=== PATIENT | male | born 1940 | race Caucasian/White ===

== ENCOUNTER → 2024-09-13 | Outpatient (CLI) | payer MEDICARE, OTHER, SELFPAY ==
--- NOTE | 2024-09-13 12:23 | XR_ITS ---
Examination: PA lateral chest 2 views TECHNIQUE: Upright PA lateral chest 2 views Exam date and time: September 13, 2024 at 1308 hours Comparison April 06, 2016 INDICATIONS: Coughing shortness of breath beginning one month ago FINDINGS: Early pneumonia right base Mild heart failure with enlarged cardiac contour and prominent vascular congestion Severe osteopenia IMPRESSION: Right base pneumonia Mild heart failure
[2024-09-13 13:58] LABS: Basophils # (Auto) 0.1 Thou/mm3 (0.0-0.2); Basophils % (Auto) 1 % (0-2.5); Eosinophils # (Auto) 0.5 Thou/mm3 (0.0-0.5); Eosinophils % (Auto) 9 % (0-10); Hematocrit 43.2 % (41.0-53.0); Hemoglobin 14.1 g/dL (13.5-16.0); Immature Granulocytes % (Auto) 0 % (0-0); Immature Granulocytes Auto 0.02 Thou/mm3 (0.00-0.00); Lymphocytes # (Auto) 0.8 Thou/mm3 (1.0-4.8); Lymphocytes % (Auto) 13 % (10-50); Mean Corpuscular HGB Conc 32.6 g/dl (31.0-37.0); Mean Corpuscular Hemoglobin 31.9 pg (25.0-35.0); Mean Corpuscular Volume 98 fL (80-100); Monocytes # (Auto) 0.6 Thou/mm3 (0.0-0.8); Monocytes % (Auto) 10 % (0-12); Neutrophils # (Auto) 4.1 Thou/mm3 (1.8-7.7); Neutrophils % (Auto) 67 % (37-80); Nucleated Red Blood Cell % 0 /100 WBC (0); Platelet Count 161 Thou/mm3 (140-440); RDW Standard Deviation 49.4 fL (35.1-43.9); Red Blood Count 4.42 Miln/mm3 (4.50-5.90); White Blood Count 6.1 Thou/mm3 (3.8-10.6)
[2024-09-13 14:10] LABS: Glucose Estimated Average 117 mg/dL (80-131); Hemoglobin A1C 5.7 % Hgb (4.8-6.0)
[2024-09-13 14:23] LABS: Alanine Aminotransferase 14 U/L (10-49); Albumin, Serum 4.3 gm/dL (3.4-4.8); Albumin/Globulin Ratio 1.7 (1.2-2.2); Alkaline Phosphatase 294 U/L (46-116); Anion Gap 6 (7-16); Aspartate Amino Transferase 10 U/L (0-34); B-Type Natriuretic Peptide 307 pg/mL (0-100); BUN/Creatinine Ratio 19 Ratio (12-20); Blood Urea Nitrogen 21 mg/dL (9-23); Calcium 9.9 mg/dL (8.3-10.6); Calcium (Corrected) 9.9 mg/dL (8.5-10.1); Cardiac Risk Estimate 2.9 RATIO (4.0-6.7); Chloride 107 mMol/L (98-107); Cholesterol 127 mg/dL (132-200); Creatinine (Component) 1.1 mg/dL (0.6-1.3); Free T4 (Free Thyroxine) 1.18 ng/dL (0.89-1.76); Globulin 2.5 gm/dL (2.3-3.5); Glucose 126 mg/dL (74-106); HDL Cholesterol 44 mg/dL (40-60); LDL Cholesterol,Calculated 67 mg/dL (0-130); Osmolality,Calculated 282 (275-295); Potassium 4.4 mMol/L (3.4-5.1); Sodium 139 mMol/L (136-145); Thyroid Stimulating Hormone 0.75 uIU/mL (0.55-4.78); Total Protein 6.8 gm/dL (5.7-8.2); Triglycerides 79 mg/dL (30-150); eGFR > 60 See Note
== END | disposition home or self-care (01) ==
LOC: CDIM 12:13 → COPL 13:16
PROVIDERS: PCP Internal Medicine; Referring Provider Internal Medicine; Visit Provider Radiology Diagnostic Radiology
DX: J18.9 Pneumonia, unspecified organism (principal); I11.0 Hypertensive heart disease with heart failure; I50.9 Heart failure, unspecified; E11.9 Type 2 diabetes mellitus without complications; E55.9 Vitamin D deficiency, unspecified; E78.2 Mixed hyperlipidemia; E03.9 Hypothyroidism, unspecified
CPT/HCPCS: 36415; 71046; 80053; 80061; 82306; 83036; 83880; 84439; 84443; 85025

== ENCOUNTER → 2024-10-09 | Outpatient (CLI) | payer MEDICARE, OTHER, SELFPAY ==
[2024-10-09 13:03] LABS: Basophils % (Auto) 0 % (0-2.5); Eosinophils # (Auto) 0.6 Thou/mm3 (0.0-0.5); Eosinophils % (Auto) 5 % (0-10); Hematocrit 43.2 % (41.0-53.0); Hemoglobin 14.6 g/dL (13.5-16.0); Immature Granulocytes % (Auto) 1 % (0-0); Immature Granulocytes Auto 0.06 Thou/mm3 (0.00-0.00); Lymphocytes % (Auto) 10 % (10-50); Mean Corpuscular HGB Conc 33.8 g/dl (31.0-37.0); Mean Corpuscular Hemoglobin 31.7 pg (25.0-35.0); Mean Corpuscular Volume 94 fL (80-100); Monocytes % (Auto) 9 % (0-12); Neutrophils # (Auto) 7.7 Thou/mm3 (1.8-7.7); Neutrophils % (Auto) 74 % (37-80); Nucleated Red Blood Cell % 0 /100 WBC (0); Platelet Count 171 Thou/mm3 (140-440); RDW Standard Deviation 48.1 fL (35.1-43.9); White Blood Count 10.4 Thou/mm3 (3.8-10.6)
[2024-10-09 13:10] LABS: B-Type Natriuretic Peptide 261 pg/mL (0-100)
[2024-10-09 13:12] LABS: Anion Gap 6 (7-16); BUN/Creatinine Ratio 30 Ratio (12-20); Blood Urea Nitrogen 42 mg/dL (9-23); Calcium 11.8 mg/dL (8.3-10.6); Carbon Dioxide 32.9 mMol/L (20.0-31.0); Chloride 101 mMol/L (98-107); Creatinine (Component) 1.4 mg/dL (0.6-1.3); Glucose 115 mg/dL (74-106); Osmolality,Calculated 290 (275-295); Potassium 4.9 mMol/L (3.4-5.1); Sodium 140 mMol/L (136-145); eGFR 49 See Note
[2024-10-09 14:15] LABS: Glucose Estimated Average 126 mg/dL (80-131)
== END | disposition home or self-care (01) ==
LOC: COPL 11:54
PROVIDERS: PCP Internal Medicine; Referring Provider Internal Medicine Cardiovascular Disease; Visit Provider Internal Medicine Cardiovascular Disease
DX: I11.0 Hypertensive heart disease with heart failure (principal); I50.9 Heart failure, unspecified; E11.65 Type 2 diabetes mellitus with hyperglycemia; E78.5 Hyperlipidemia, unspecified
CPT/HCPCS: 36415; 80048; 83036; 83880; 85025

== ENCOUNTER 2024-10-13 15:26 | Inpatient (IN) | payer MEDICARE, OTHER, SELFPAY ==
[2024-10-13 15:27] VITALS: BMI 33.0
[2024-10-13 15:42] VITALS: BP 100/61; PULSE 62; RESP 18; TEMP 36.4; O2SAT 95
--- NOTE | 2024-10-13 15:50 | EKG_ITS ---
[facility] Test Date: 2024-10-13 Pat Name: ANGELICA SEVILLA Department: Room: - Gender: Male Sales Department Manager: : 1940 Requested By: Palak Morales Order Number: [id number] Reading MD: Palak Morales Measurements Intervals [place] Rate: 57 P: SD: QRS: -48 QRSD: 140 T: 14 QT: 384 QTc: 374 Interpretive Statements ATRIAL FIBRILLATION WITH SLOW VENTRICULAR RESPONSE MARKED LEFT AXIS DEVIATION [QRS AXIS < -30] RIGHT BUNDLE BRANCH BLOCK [120+ ms QRS DURATION, UPRIGHT V1, 40+ ms S IN I/aVL/V4/V5/V6] No previous ECG available for comparison /store/S0/[id number]/[id number].pdf
--- NOTE | 2024-10-13 15:50 | XR_ITS ---
Examination: Venous duplex lower extremity sonogram, bilateral. Date and time of exam: October 13, 2024 7055 hours Indications: Bilateral leg swelling and pain beginning several months ago Technique: Multiple sonographic images of the deep venous system have been obtained. B-mode/2-D grayscale imaging of vascular structures and Doppler spectral analysis (waveforms) and color performed Both legs are examined. Findings: Deep venous systems do not demonstrate abnormal echogenicity. All visualized deep veins exhibit compressibility. All visualized deep veins exhibit augmentation. Impression: Negative for deep vein thrombosis
--- NOTE | 2024-10-13 15:50 | XR_ITS ---
Examination: AP chest single view Technique: Portable AP sitting chest single view Findings: October 13, 2024 1558 hrs. Comparison September 13, 2024 Indications: Shortness of breath coughing fever beginning 2 days ago. Findings: Diffuse significant bilateral pneumonia Mild enlargement cardiac contour with significant vascular congestion and central vascular engorgement Significant osteopenia Impression: Diffuse significant bilateral pneumonia Mild associated heart failure
--- NOTE | 2024-10-13 15:52 | EDNOTE_ITS ---
<Statement entered by Denisha Yan MD - 10/14/24 18:03> As co-signing physician, I was present and available for consult prn. I concur with the plan and care as documented by the midlevel provider. ED General RME/HPI General Chief complaint: Shortness of Breath/Dyspnea Stated complaint: SOB, UNABLE TO BEAR WT, SINCE YESTERDAY Time Seen by Provider: 10/13/24 15:44 Arrival date/time: 10/13/24 15:26 RME / HPI RME / HPI narrative: 84-year-old male patient with significant history of prostate problem, hypertension, diabetes mellitus, came in for evaluation regarding generalized body weakness. Patient's been sick with cough, going on for the last 3 weeks, getting worse, was already seen by PCP, and was already given antibiotic completed antibiotic already, associated with worsening generalized body weakness, difficulty ambulating for the last 3 days. Patient denies any fever. Denies any headache. Denies any upper extremity weakness. Denies any other other complaints. No medication was taken prior to arrival. Related Data Home Medications ?Medication ?Instructions ?Recorded ?Confirmed Aspirin Ec * (ECOTRIN *) 81 mg PO QDAY ##0 04/06/16 Losartan Potassium * (COZAAR *) 100 mg PO QAM #0 tabs 04/06/16 atenolol 100 mg tablet (Tenormin) 100 mg PO QAM #0 tabs 04/06/16 finasteride 5 mg tablet (Proscar) 5 mg PO QDAY #0 tabs 04/06/16 meloxicam 15 mg tablet (Mobic) 15 mg PO HS #0 tabs 04/06/16 metformin 750 mg tablet,extended 750 mg PO QAM ##0 04/06/16 release 24 hr (Glucophage XR) spironolactone 25 mg tablet 25 mg PO QDAY #0 tabs 04/06/16 (Aldactone) tamsulosin 0.4 mg capsule (Flomax) 0.4 mg PO QDAY ##0 04/06/16 Allergies Allergy/AdvReac Type Severity Reaction Status Date / Time NKA* Allergy Uncoded 10/13/24 15:29 Review of Systems Review of Systems Narrative Review of Systems: Review of system reviewed and within normal limits except mentioned in HPI ED Exam Narrative Physical exam: VITAL SIGNS: Reviewed. GENERAL APPEARANCE: Alert and interactive, follows commands, no acute distress, HEAD AND FACE: Non-traumatic. ENT: PERRL, pale conjunctiva, eyelid no trauma, Mucous membrane moist. NECK: Supple, nontender, no nuchal rigidity. CHEST: No tenderness, no crepitus, no paradoxical movement, no retractions. LUNGS: Clear, well ventilated, symmetric, no rales, no wheezing, no ronchi, no stridor, good breath sounds bilaterally. HEART: Regular rate, regular rhythm, no murmur, no gallops. ABDOMEN: Soft, positive bowel sounds, nondistended, no guarding, nontender, no rebound, no masses, RECTAL: Deferred. GENITAL: Deferred. NEUROLOGICAL: Gross motor function intact sensory function intact, Appropriate for age. MUSCULOSKELETAL: low back nontender, full range of motion. EXTREMITIES: Nontender, full range of motion. SKIN: Color pale, dry, no rash, no lacerations, no abrasions, no contusions. LYMPHATICS: Deferred. Course Quality Measures none Orders Category Date Time Status Bedside COVID-19 Antigen Test NOW Care 10/13/24 15:51 Active Bedside COVID-19 Antigen Test NOW Care 10/13/24 20:49 Active Bedside Influenza A&B Antigen Test NOW Care 10/13/24 15:51 Completed COVID-19 Screening Questionnaire NOW Care 10/13/24 20:41 Active Decision to Admit X1 Care 10/13/24 20:41 Completed EKG (ED ONLY) *Do not use* NOW Care 10/13/24 15:50 Completed EKG (ED Only) Stat Exams 10/13/24 15:50 Draft US venous doppler LE BI Stat Exams 10/13/24 15:50 Completed XR chest 1V Stat Exams 10/13/24 15:50 Completed B-Type Natriuretic Peptide Stat Lab 10/13/24 16:20 Completed Blood Culture (Lab) Stat Lab 10/13/24 16:20 Received C-Reactive Protein Stat Lab 10/13/24 16:20 Completed CBC Stat Lab 10/13/24 16:20 Completed Comprehensive Metabolic Panel Stat Lab 10/13/24 16:20 Completed Lactate (Lactic Acid) Stat Lab 10/13/24 16:20 Completed Lactic Acid, 3 HR Stat Lab 10/13/24 19:48 Completed Partial Thromboplastin Time Stat Lab 10/13/24 16:20 Completed Procalcitonin Stat Lab 10/13/24 16:20 Completed Prothrombin Time with INR Stat Lab 10/13/24 16:20 Completed RSV [Respiratory Syncytial Virus Ag] Stat Lab 10/13/24 16:16 Completed Troponin I Stat Lab 10/13/24 16:20 Completed Troponin I Stat Lab 10/13/24 18:23 Completed UA, C/S IF [Urinalysis, C/S if Indicated] Stat Lab 10/13/24 16:54 Completed Azithromycin Inj [Zithromax Inj] 500 mg Med 10/13/24 20:08 Discontinued Sodium Chloride 0.9% 250 ml [Ns] 250 ml IV X1 Sodium Chloride 0.9% 1000 ml [Ns] 1,000 ml Med 10/13/24 17:14 Discontinued IV 999 mls/hr cefTRIAXone/D5w 1gm IV premix [Rocephin/D5w 1gm IV Med 10/13/24 20:07 Discontinued premix] 50 ml IV X1 Vital Signs Vital signs: Vital Signs Temperature 97.6 F 10/13/24 15:42 Pulse Rate 62 10/13/24 15:42 Respiratory Rate 18 10/13/24 15:42 Blood Pressure 100/61 10/13/24 15:42 Pulse Oximetry (%) 95 10/13/24 15:42 Oxygen Delivery Method Room Air 10/13/24 15:42 [facility] Patient data External records reviewed:: None Clinical information provided by:: patient Social determinants that could affect healthcare access:: none Patient has the following chronic illnesses:: Hypertension, prostate problem diabetes mellitus How is presenting disease/condition affected by chronic disease/condition?: e xacerbated by Evaluation data The following diagnostics were reviewed and interpreted by me:: lab results, radiology exam(s) and EKG tracing(s) Lab and/or radiology exams considered but not ordered:: None Interpretation Summary: Chest x-ray showed diffuse pneumonia, bilateral. The rest of the labs see results in [facility] Medications Medications considered but not ordered:: None Medication administrations:: Medication Administration History Acetaminophen (Acetaminophen 325 Mg Tablet) 650 mg PO Q6H PRN PRN Reason: Fever >100.4 or Pain 1-10 Stop: 11/12/24 21:43 Albuterol/Ipratropium (Albuterol/Ipratropium (Duoneb) Rt Diana 3 Ml Nebu) 3 ml INH Q6HRRT PRN PRN Reason: Shortness of breath or wheezing Stop: 11/13/24 00:59 Bisacodyl (Bisacodyl 5 Mg Tabec) 10 mg PO QDAY PRN; Protocol PRN Reason: CONSTIPATION Stop: 11/12/24 21:43 Ondansetron HCl (Ondansetron Inj 2 Mg/Ml Inj 2 Ml) 4 mg IV Q6H PRN; Protocol PRN Reason: NAUSEA OR VOMITING Stop: 11/12/24 21:43 Discontinued Medications Sodium Chloride (Ns) 1,000 mls @ 999 mls/hr IV .Q1H1M ONE Stop: 10/13/24 18:14 Last Infusion: 10/13/24 22:12 Dose: Infused Documented By: Admin: 10/13/24 20:50 Dose: 999 mls/hr Documented By: CHRIS Ceftriaxone Sodium/Dextrose (Rocephin/D5w 1gm Iv Premix) 50 mls @ 100 mls/hr IV X1 ONE Stop: 10/13/24 20:36 Last Infusion: 10/13/24 21:27 Dose: Infused Documented By: Admin: 10/13/24 20:50 Dose: 100 mls/hr Documented By: CHRIS Azithromycin 500 mg/ Sodium (Chloride) 250 mls @ 250 mls/hr IV X1 ONE Stop: 10/13/24 21:07 Last Infusion: 10/13/24 22:12 Dose: Infused Documented By: Admin: 10/13/24 20:50 Dose: 250 mls/hr Documented By: CHRIS Sodium Chloride (Sodium Chloride Rt 10% 15 Ml Nebu) 5 ml INH X1 ONE Stop: 10/13/24 21:50 IV fluids for addition Zithromax IV inspection IV Consultations Consultation(s) initiated? (list below): No Diagnosis Differential Diagnosis ED Complaint MDM: Pneumonia, generalized body weakness, dehydration Most likely diagnosis given after review of the tests above:: Generalized body weakness, pneumonia, dehydration Admission Indicated Admission indicated?: indicated Explain why admission is indicated or not indicated:: Patient is to be admitted for further management.. Admission Request Was there a request for admission?: Yes Admission Attestation Admission request attestation: Discussed case with [Dr Eldridge] from Hospitalist service regarding admission. Discussed patients ED course, exam findings, labs, and radiology results. The Hospitalist [agrees] to accept the patient for admission. Disposition Plan Disposition Plan: Admit Medical Decision Making MDM Narrative MDM Narrative: 84-year-old male patient with significant history of prostate problem, hypertension, diabetes mellitus, came in for evaluation regarding generalized body weakness. Patient's been sick with cough, going on for the last 3 weeks, getting worse, was already seen by PCP, and was already given antibiotic completed antibiotic already, associated with worsening generalized body weakness, difficulty ambulating for the last 3 days. Patient denies any fever. Denies any headache. Denies any upper extremity weakness. Denies any other other complaints. No medication was taken prior to arrival. Chest x-ray showed worsening bilateral diffuse pneumonia. Patient's laboratory workup CBC no leukocytosis noted, initial lactic acid was noted to be elevated, creatinine was also noted to be 1.4 BUN of 35. Troponin was noted to be 0.095. C-reactive protein 2.7. BNP of 274. Doppler ultrasound bilateral lower extremity negative for DVT. Plan of care discussed with the family and agrees to be admitted for further management. Discussed with hospitalist who admitted the patient Differential Diagnosis Differential Diagnosis: Pneumonia, generalized body weakness, dehydration Lab Data 10/13/24 16:20 10/13/24 16:20 Labs: Lab Results 10/13/24 10/13/24 10/13/24 Range/Units 16:16 16:20 16:54 WBC 9.3 (3.8-10.6) Thou/mm3 RBC 4.56 (4.50-5.90) Miln/mm3 Hgb 14.3 (13.5-16.0) g/dL Hct 43.9 (41.0-53.0) % MCV 96 (80-100) fL MCH 31.4 (25.0-35.0) pg MCHC 32.6 (31.0-37.0) g/dl RDW Std Deviation 49.5 H (35.1-43.9) fL Plt Count 174 (140-440) Thou/mm3 Neut % (Auto) 73 (37-80) % Lymph % (Auto) 10 (10-50) % [place] % (Auto) 10 (0-12) % Eos % (Auto) 6 (0-10) % Baso % (Auto) 1 (0-2.5) % Neut # (Auto) 6.8 (1.8-7.7) Thou/mm3 Lymph # (Auto) 1.0 (1.0-4.8) Thou/mm3 [place] # (Auto) 0.9 H (0.0-0.8) Thou/mm3 Eos # (Auto) 0.6 H (0.0-0.5) Thou/mm3 Baso # (Auto) 0.1 (0.0-0.2) Thou/mm3 Immature Gran # (Auto) 0.05 H (0.00-0.00) Thou/mm3 Absolute Nucleated RBC 0.00 (0.00-0.00) Thou/mm3 Immature Gran % 1 H (0-0) % Nucleated RBC % 0 (0) /100 WBC PT 12.2 (9.0-12.2) Seconds INR 1.1 (0.9-1.3) APTT 26.3 (22.0-36.0) Seconds Sodium 139 (136-145) mMol/L Potassium 5.2 H (3.4-5.1) mMol/L Chloride 103 (98-107) mMol/L Carbon Dioxide 28.7 (20.0-31.0) mMol/L Anion Gap 7 (7-16) BUN 35 H (9-23) mg/dL Creatinine 1.4 H (0.6-1.3) mg/dL Estim Creat Clear Calc 46.7 L (>60) mL/min eGFR 49 L (60 - ) See Note BUN/Creatinine Ratio 25 H (12-20) Ratio Glucose 117 H (74-106) mg/dL Calculated Osmolality 286 (275-295) Lactic Acid 2.2 H (0.4-2.0) mMol/L Calcium 12.5 H (8.3-10.6) mg/dL Corrected Calcium 12.7 H (8.5-10.1) mg/dL Total Bilirubin 0.7 (0.3-1.2) mg/dL AST 19 (0-34) U/L ALT 18 (10-49) U/L Alkaline Phosphatase 283 H (46-116) U/L Troponin I 0.095 H* (0.0-0.045) ng/mL C-Reactive Prot, Quant 2.7 H (0.0-0.9) mg/dL B-Natriuretic Peptide 274 H (0-100) pg/mL Total Protein 6.3 (5.7-8.2) gm/dL Albumin 3.7 (3.4-4.8) gm/dL Globulin 2.6 (2.3-3.5) gm/dL Albumin/Globulin Ratio 1.4 (1.2-2.2) Procalcitonin 0.35 (0.0-0.49) ng/ml Ur Collection Type Clean Catch Urine Color Lt-Yellow (Lt Yel-Yel) Urine Clarity Clear (Clear/Hazy) Urine pH 6.0 (5.0-7.0) Ur Specific [place] 1.016 (1.001-1.035) Urine Protein Negative (Neg - Trace) Urine Glucose (UA) Negative (Negative) Urine Ketones Negative (Negative) Urine Blood Negative (Negative) Urine Nitrite Negative (Negative) Urine Bilirubin Negative (Negative) Urine Urobilinogen (Auto) Negative (0.0-1.0) mg/dL Ur Leukocyte Esterase Negative (Negative) Urine RBC 2 (0-3) /hpf Urine WBC 1 (0-5) /hpf Ur Squamous Epith Cells < 1 (0-5) /hpf Urine Bacteria None (None) Hyaline Casts < 1 (0-1) /hpf Ur Culture Indicated? Not Indicated RSV Rapid Negative (Negative) 10/13/24 10/13/24 Range/Units 18:23 19:48 WBC (3.8-10.6) Thou/mm3 RBC (4.50-5.90) Miln/mm3 Hgb (13.5-16.0) g/dL Hct (41.0-53.0) % MCV (80-100) fL MCH (25.0-35.0) pg MCHC (31.0-37.0) g/dl RDW Std Deviation (35.1-43.9) fL Plt Count (140-440) Thou/mm3 Neut % (Auto) (37-80) % Lymph % (Auto) (10-50) % [place] % (Auto) (0-12) % Eos % (Auto) (0-10) % Baso % (Auto) (0-2.5) % Neut # (Auto) (1.8-7.7) Thou/mm3 Lymph # (Auto) (1.0-4.8) Thou/mm3 [place] # (Auto) (0.0-0.8) Thou/mm3 Eos # (Auto) (0.0-0.5) Thou/mm3 Baso # (Auto) (0.0-0.2) Thou/mm3 Immature Gran # (Auto) (0.00-0.00) Thou/mm3 Absolute Nucleated RBC (0.00-0.00) Thou/mm3 Immature Gran % (0-0) % Nucleated RBC % (0) /100 WBC PT (9.0-12.2) Seconds INR (0.9-1.3) APTT (22.0-36.0) Seconds Sodium (136-145) mMol/L Potassium (3.4-5.1) mMol/L Chloride (98-107) mMol/L Carbon Dioxide (20.0-31.0) mMol/L Anion Gap (7-16) BUN (9-23) mg/dL Creatinine (0.6-1.3) mg/dL Estim Creat Clear Calc (>60) mL/min eGFR (60 - ) See Note BUN/Creatinine Ratio (12-20) Ratio Glucose (74-106) mg/dL Calculated Osmolality (275-295) Lactic Acid 1.7 (0.4-2.0) mMol/L Calcium (8.3-10.6) mg/dL Corrected Calcium (8.5-10.1) mg/dL Total Bilirubin (0.3-1.2) mg/dL AST (0-34) U/L ALT (10-49) U/L Alkaline Phosphatase (46-116) U/L Troponin I 0.095 H* (0.0-0.045) ng/mL C-Reactive Prot, Quant (0.0-0.9) mg/dL B-Natriuretic Peptide (0-100) pg/mL Total Protein (5.7-8.2) gm/dL Albumin (3.4-4.8) gm/dL Globulin (2.3-3.5) gm/dL Albumin/Globulin Ratio (1.2-2.2) Procalcitonin (0.0-0.49) ng/ml Ur Collection Type Urine Color (Lt Yel-Yel) Urine Clarity (Clear/Hazy) Urine pH (5.0-7.0) Ur Specific [place] (1.001-1.035) Urine Protein (Neg - Trace) Urine Glucose (UA) (Negative) Urine Ketones (Negative) Urine Blood (Negative) Urine Nitrite (Negative) Urine Bilirubin (Negative) Urine Urobilinogen (Auto) (0.0-1.0) mg/dL Ur Leukocyte Esterase (Negative) Urine RBC (0-3) /hpf Urine WBC (0-5) /hpf Ur Squamous Epith Cells (0-5) /hpf Urine Bacteria (None) Hyaline Casts (0-1) /hpf Ur Culture Indicated? RSV Rapid (Negative) Discharge Plan Problem List Clinical Impression: Community acquired pneumonia
[2024-10-13 16:31] LABS: Lactate (Lactic Acid) 2.2 mMol/L (0.4-2.0)
[2024-10-13 16:36] LABS: Basophils # (Auto) 0.1 Thou/mm3 (0.0-0.2); Basophils % (Auto) 1 % (0-2.5); Eosinophils # (Auto) 0.6 Thou/mm3 (0.0-0.5); Eosinophils % (Auto) 6 % (0-10); Hematocrit 43.9 % (41.0-53.0); Hemoglobin 14.3 g/dL (13.5-16.0); Immature Granulocytes % (Auto) 1 % (0-0); Immature Granulocytes Auto 0.05 Thou/mm3 (0.00-0.00); Lymphocytes % (Auto) 10 % (10-50); Mean Corpuscular HGB Conc 32.6 g/dl (31.0-37.0); Mean Corpuscular Hemoglobin 31.4 pg (25.0-35.0); Mean Corpuscular Volume 96 fL (80-100); Monocytes # (Auto) 0.9 Thou/mm3 (0.0-0.8); Monocytes % (Auto) 10 % (0-12); Neutrophils # (Auto) 6.8 Thou/mm3 (1.8-7.7); Neutrophils % (Auto) 73 % (37-80); Nucleated Red Blood Cell % 0 /100 WBC (0); Platelet Count 174 Thou/mm3 (140-440); RDW Standard Deviation 49.5 fL (35.1-43.9); Red Blood Count 4.56 Miln/mm3 (4.50-5.90); White Blood Count 9.3 Thou/mm3 (3.8-10.6)
[2024-10-13 16:48] LABS: INR 1.1 (0.9-1.3); Partial Thromboplastin Time 26.3 Seconds (22.0-36.0); Prothrombin Time 12.2 Seconds (9.0-12.2)
[2024-10-13 16:51] LABS: B-Type Natriuretic Peptide 274 pg/mL (0-100)
[2024-10-13 16:58] LABS: Respiratory Syncytial Virus Ag Negative (Negative)
[2024-10-13 17:01] LABS: Alanine Aminotransferase 18 U/L (10-49); Albumin, Serum 3.7 gm/dL (3.4-4.8); Albumin/Globulin Ratio 1.4 (1.2-2.2); Alkaline Phosphatase 283 U/L (46-116); Anion Gap 7 (7-16); Aspartate Amino Transferase 19 U/L (0-34); BUN/Creatinine Ratio 25 Ratio (12-20); Bilirubin,Total 0.7 mg/dL (0.3-1.2); Blood Urea Nitrogen 35 mg/dL (9-23); C-Reactive Protein 2.7 mg/dL (0.0-0.9); Calcium 12.5 mg/dL (8.3-10.6); Calcium (Corrected) 12.7 mg/dL (8.5-10.1); Carbon Dioxide 28.7 mMol/L (20.0-31.0); Chloride 103 mMol/L (98-107); Creatinine (Component) 1.4 mg/dL (0.6-1.3); Estimated Creatinine Clearance 46.7 mL/min (>60); Globulin 2.6 gm/dL (2.3-3.5); Glucose 117 mg/dL (74-106); Osmolality,Calculated 286 (275-295); Potassium 5.2 mMol/L (3.4-5.1); Procalcitonin 0.35 ng/ml (0.0-0.49); Sodium 139 mMol/L (136-145); Total Protein 6.3 gm/dL (5.7-8.2); eGFR 49 See Note
[2024-10-13 17:02] LABS: Troponin I 0.095 ng/mL (0.0-0.045)
[2024-10-13 17:37] LABS: Collection Type, Urine Clean Catch
[2024-10-13 17:47] LABS: Bilirubin,Urine Negative (Negative); Blood,Urine Negative (Negative); Clarity,Urine Clear (Clear/Hazy); Color,Urine Lt-Yellow (Lt Yel-Yel); Culture Indicated,Urine Not Indicated; Glucose, Urine Negative (Negative); Hyaline Casts,Urine < 1 /hpf (0-1); Ketones,Urine Negative (Negative); Leukocyte Esterase,Urine Negative (Negative); Nitrite,Urine Negative (Negative); Protein,Urine Negative (Neg - Trace); RBC,Urine 2 /hpf (0-3); Specific Gravity,Urine 1.016 (1.001-1.035); Squamous Epithelial Cell,Urine < 1 /hpf (0-5); Urobilinogen,Urine Negative mg/dL (0.0-1.0); WBC,Urine 1 /hpf (0-5)
[2024-10-13 19:20] LABS: Troponin I 0.095 ng/mL (0.0-0.045)
[2024-10-13 19:27] LABS: Reflex Lactate? Y
[2024-10-13 20:03] LABS: Lactic Acid, 3 HR 1.7 mMol/L (0.4-2.0)
[2024-10-13] MEDS: cefTRIAXone/D5w 1gm IV premix 50 ML IV (20:50)
[2024-10-13] MEDS: AZITHROMYCIN INJ 500 MG in SODIUM CHLORIDE 0.9% 250 ML 250 ML 250 MG IV (20:50)
[2024-10-13] MEDS: SODIUM CHLORIDE 0.9% 1000 ML 1,000 ML 999 ML IV (20:50)
--- NOTE | 2024-10-13 21:28 | PD.RESHP ---
Documentation for date of: 10/13/24 [facility] History of Present Illness History of present illness: Patient is a 84-year-old male with past medical history of afib on Eliquis, hypertension, prediabetes, and BPH who presented to the ED on 10/13/2024 with 6 weeks of cough and worsening generalized body weakness and bilateral leg swelling for the last 3 days. Daughters present with patient. States cough started around July, patient has meanwhile seen PCP and completed courses of azithromycin and doxycycline without improvement. Also has had about a 30-lb unintentional weight loss in the last 2 months. He reports loss of appetite due to burning sensation with eating. He was prescribed pantoprazole 40 mg daily which helped some but did not resolve the issue. Patient takes Lasix 40 mg BID and follows with Dr. Grider, Cardiology who recently saw him before the sudden increase in bilateral leg swelling. States no medication adjustments have recently been made other than decreasing amlodipine from twice to once daily. Patient notes that he is ambulatory at baseline and independent with all ADLs lives alone but has family frequently visit and they are currently worried for his recent declining health. Over last few days he has grown very weak such that he is unable to ambulate. Patient reports chills today. Denies fevers, chest pain, nausea, vomiting, abdominal pain, diarrhea. Denies bloody sputum. ED Course: -Initial vitals were hemodynamically stable. -Labs significant for mild hyperkalemia 5.2, creatinine 1.4 (baseline 1.1), lactic acid 2.2->1.7, elevated corrected calcium 12.7, alk phos 283, troponin 0.95, CRP 2.7, BNP 274, procalcitonin 0.35 negative -EKG showed atrial fibrillation with rate 57 -CXR showed diffuse significant bilateral pneumonia, mild associated heart failure -Venous duplex bilateral lower extremities were negative for DVT -In the ED, patient was given 1L NS IV bolus x1, ceftriaxone 1 g IV x1, azithromycin 500 mg IV x1 -Patient was admitted for community acquired pneumonia Review of Systems Review of systems otherwise negative except what is mentioned above. Past Medical History Past Medical History Comments PMH COMMENT: Past Medical History: Afib on Eliquis, hypertension, prediabetes, and BPH. Denies past history of hospitalizations other than for surgery. Family History: Positive for diabetes and heart disease in family Surgical History: Lumbar spine surgery Social History: Denies history of smoking, denies current alcohol use, denies recreational drug use Current Medications: Eliquis 2.5 mg BID, furosemide 40 mg BID, metoprolol succinate 100 mg qday, amlodipine 5 mg qday, losartan 100 mg qday, metformin 500 mg qday, tamsulosin 0.4 mg qday, finasteride 5 mg qday, potassium chloride 20 mEq BID (Source: [employer]) Allergies: No known drug allergies Exam Vital Signs Temp Pulse Resp BP Pulse Ox O2 Del Method 97.6 F 62 18 100/61 95 Room Air 10/13/24 15:42 10/13/24 15:42 10/13/24 15:42 10/13/24 15:42 10/13/24 15:42 10/13/24 15:42 Narrative Exam Physical Exam General: Elderly male, awake and in no acute distress. Conversational, frail appearing. HEENT: Normocephalic, atraumatic, mucous membranes moist. Heart: Regular rate and rhythm, no murmurs. Lungs: Bilateral mild crackles. Abdomen: Soft, nondistended, nontender, positive bowel sounds. ?No guarding or rebound tenderness. Neurologic: Alert and oriented x3, no gross neurological deficit, and patient able to move all 4 extremities. Extremities: Significant bilateral lower extremity 3+ pitting edema. Skin: No rash or ecchymoses. Results: Labs 10/22/24 04:40 10/22/24 04:40 Labs: Short CBC 10/13/24 Range/Units 16:20 WBC 9.3 (3.8-10.6) Thou/mm3 Hgb 14.3 (13.5-16.0) g/dL Hct 43.9 (41.0-53.0) % Plt Count 174 (140-440) Thou/mm3 BMP 10/13/24 16:20 Sodium 139 Potassium 5.2 H Chloride 103 Carbon Dioxide 28.7 BUN 35 H Creatinine 1.4 H Glucose 117 H Calcium 12.5 H Cardiac Enzymes 10/13/24 10/13/24 Range/Units 16:20 18:23 Troponin I 0.095 H* 0.095 H* (0.0-0.045) ng/mL Liver Function 10/13/24 Range/Units 16:20 Total Bilirubin 0.7 (0.3-1.2) mg/dL AST 19 (0-34) U/L ALT 18 (10-49) U/L Alkaline Phosphatase 283 H (46-116) U/L Albumin 3.7 (3.4-4.8) gm/dL Urine 10/13/24 Range/Units 16:54 Urine Color Lt-Yellow (Lt Yel-Yel) Urine Clarity Clear (Clear/Hazy) Urine pH 6.0 (5.0-7.0) Ur Specific [place] 1.016 (1.001-1.035) Urine Protein Negative (Neg - Trace) Urine Glucose (UA) Negative (Negative) Quality Measures Quality Measures VTE prophylaxis Advance care planning discussed with:: patient Medications Home Medications and Allergies Home Medications ?Medication ?Instructions ?Recorded ?Confirmed ?Type finasteride 5 mg tablet (Proscar) 5 mg PO QDAY #0 tabs 04/06/16 10/14/24 History tamsulosin 0.4 mg capsule (Flomax) 0.4 mg PO QDAY ##0 04/06/16 10/14/24 History amlodipine 5 mg tablet 5 mg PO DAILY 10/14/24 10/14/24 History furosemide 40 mg tablet 40 mg PO BID 10/14/24 10/14/24 History losartan 100 mg tablet 100 mg PO DAILY 10/14/24 10/14/24 History metformin 500 mg tablet 500 mg PO DAILY 10/14/24 10/14/24 History metoprolol succinate 100 mg 100 mg PO DAILY 10/14/24 10/14/24 History tablet,extended release 24 hr potassium chloride 20 mEq 20 meq PO BID 10/14/24 10/14/24 History tablet,extended release(part/cryst) Allergies Allergy/AdvReac Type Severity Reaction Status Date / Time No Known Allergies Allergy Unverified 10/14/24 11:51 Visit Medications Discontinued Medications Sodium Chloride (Ns) 1,000 mls @ 999 mls/hr IV .Q1H1M ONE Stop: 10/13/24 18:14 Last Admin: 10/13/24 20:50 Dose: 999 mls/hr Ceftriaxone Sodium/Dextrose (Rocephin/D5w 1gm Iv Premix) 50 mls @ 100 mls/hr IV X1 ONE Stop: 10/13/24 20:36 Last Infusion: 10/13/24 21:27 Dose: Infused Azithromycin 500 mg/ Sodium (Chloride) 250 mls @ 250 mls/hr IV X1 ONE Stop: 10/13/24 21:07 Last Admin: 10/13/24 20:50 Dose: 250 mls/hr Assessment & Plan Plan 84-year-old male with past medical history of afib on Eliquis, hypertension, prediabetes, and BPH who presented to the ED on 10/13/2024 with 6 weeks of cough and worsening generalized body weakness and bilateral leg swelling for the last 3 days. Patient was found to have extensive bilateral pneumonia and admitted for further management. #Community acquired pneumonia Patient on initial evaluation not septic nor hypoxic, but CXR showing significantly progressed bilateral diffusely infiltrative pneumonia, and patient has progressive weakness, lives alone. CURB-65 at this point was 2 points. Moderate risk group: 6.8% 30-day mortality. Consider inpatient treatment or outpatient with close followup. -Started ceftriaxone 1g IV qday -DuoNebs q6h as needed -Benzonatate 200 mg PO TID -MRSA screen -Cocci ordered -Blood cultures pending -Sputum culture pending #Hypercalcemia Elevated corrected calcium 12.7. On the patient's home medications list brought in by family, listed is Vitamin D3 125 mcg (5000 IU) qday. Likely secondary to Vitamin D hypervitaminosis if he is still actively taking it. Other differentials include possible malignancy, parathyroid disorders. -Ordered Vitamin D studies -PTH ordered -Started calcitonin -Limited fluids due to HFpEF #Generalized weakness Family reported progressive weakness in last few months, worse in last few days. Differentials include progressive pulmonary disease, hypercalcemia, malignancy, failure to thrive. -Manage underlying problems as above -Ordered PT evaluation #GERD-like symptoms Patient complains of burning sensation whenever he eats causing poor appetite. -Pantoprazole 40 mg PO qday -Famotidine 20 mg PO qday prn if symptoms persist #Bilateral lower extremity swelling #History of HFpEF (?) Unknown EF, patient follows with Dr. Grider. Patient takes Lasix 40 BID. -Consulted patient?s recoil spring winder, Dr. Grider, appreciate recommendations -Ordered echo, currently none on file at [facility] -Resume Lasix at 40 mg IV qday #History of afib, rate controlled EKG showed rate controlled afib. -Continue home Eliquis 2.5 mg BID -Hold home metoprolol XL due to soft BP #History of BPH -Hold home tamsulosin due to soft BP DVT prophylaxis: Eliquis 2.5 mg BID GI prophylaxis: Pantoprazole 40 mg IV daily Diet: Cardiac, low sodium Boogie: None Lines: Peripheral IV Antibiotics: ceftriaxone [10/13- ] CODE STATUS: FULL Reason for hospitalization: Community acquired pneumonia Patient plan of care was discussed with the attending physician, Dr. Meade. Lizzy Eldridge, PGY-2 Attending Provider Attestation/Addendum I have discussed and was present for the essential components of the history, physical examination, diagnosis, and treatment plan with the resident. I agree with the patient's care as documented by the resident and amended herein by me. Bartolo Meade, DO. Although this document has been carefully reviewed, there may still be some phonetic and other typographical errors. These errors are purely grammatical due to imperfections in the software program and should not be construed in any way to compromise the substance of the patient's medical care during this visit.
[2024-10-13 22:17] VITALS: BP 107/67; PULSE 97; RESP 18; TEMP 36.6; O2SAT 95
[2024-10-13 22:26] VITALS: PULSE 91; RESP 18; RESP 95
--- NOTE | 2024-10-13 23:00 | PC.NURSE ---
RECEIVED PT FROM RME ROOM, PT CAME TO ER FOR C/O SOB, GOT TO ROOM 2 VERY WEAK AND HAVING SOB, RT NOTIFIED ABOUT PT NEEDS OF BREATHING TX, FAMILY AT BED SIDE.
[2024-10-13] MEDS: SODIUM CHLORIDE RT 10% 15 ML NEBU 5 ML INH (23:01)
[2024-10-13] MEDS: ALBUTEROL/IPRATROPIUM (Duoneb) RT SOL 3 ML NEBU INH (23:01)
[2024-10-13 23:05] VITALS: PULSE 64; RESP 18; O2SAT 93
[2024-10-13 23:07] VITALS: BP 99/45; PULSE 64; RESP 12; TEMP 36.5; O2SAT 92
[2024-10-13] MEDS: PANTOPRAZOLE INJ 40 MG VIAL IV (23:49)
[2024-10-13 23:56] VITALS: BP 95/50; PULSE 67; RESP 17
[2024-10-14] VITALS (13 sets, daily range): BP systolic 95–129; BP diastolic 50–86; PULSE 59–97; RESP 17–30; TEMP 35.8–36.7; O2SAT 92–99; BMI 32.4; BMI 12.0
[2024-10-14] MEDS: SODIUM CHLORIDE 0.9% 500 ML 500 ML 999 ML IV
[2024-10-14] MEDS: metroNIDAZOLE 250 MG TABLET 500 MG PO (05:41)
[2024-10-14] MEDS: PANTOPRAZOLE 40 MG TABLET PO (05:42)
[2024-10-14 06:28] LABS: Calcium, Ionized 5.5 mg/dL (4.6-5.6)
[2024-10-14 06:37] LABS: Basophils % (Auto) 0 % (0-2.5); Eosinophils # (Auto) 0.6 Thou/mm3 (0.0-0.5); Eosinophils % (Auto) 7 % (0-10); Hematocrit 40.9 % (41.0-53.0); Hemoglobin 13.2 g/dL (13.5-16.0); Immature Granulocytes % (Auto) 1 % (0-0); Immature Granulocytes Auto 0.06 Thou/mm3 (0.00-0.00); Lymphocytes # (Auto) 0.9 Thou/mm3 (1.0-4.8); Lymphocytes % (Auto) 11 % (10-50); Mean Corpuscular HGB Conc 32.3 g/dl (31.0-37.0); Mean Corpuscular Hemoglobin 31.5 pg (25.0-35.0); Mean Corpuscular Volume 98 fL (80-100); Monocytes # (Auto) 0.8 Thou/mm3 (0.0-0.8); Monocytes % (Auto) 10 % (0-12); Neutrophils # (Auto) 5.7 Thou/mm3 (1.8-7.7); Neutrophils % (Auto) 71 % (37-80); Nucleated Red Blood Cell % 0 /100 WBC (0); Platelet Count 221 Thou/mm3 (140-440); RDW Standard Deviation 51.6 fL (35.1-43.9); Red Blood Count 4.19 Miln/mm3 (4.50-5.90); White Blood Count 8.1 Thou/mm3 (3.8-10.6)
[2024-10-14 07:15] LABS: Alanine Aminotransferase 16 U/L (10-49); Albumin, Serum 3.4 gm/dL (3.4-4.8); Albumin/Globulin Ratio 1.5 (1.2-2.2); Alkaline Phosphatase 256 U/L (46-116); Anion Gap 4 (7-16); Aspartate Amino Transferase 17 U/L (0-34); BUN/Creatinine Ratio 26 Ratio (12-20); Bilirubin,Total 0.6 mg/dL (0.3-1.2); Blood Urea Nitrogen 31 mg/dL (9-23); Calcium 11.8 mg/dL (8.3-10.6); Calcium (Corrected) 12.3 mg/dL (8.5-10.1); Carbon Dioxide 30.6 mMol/L (20.0-31.0); Chloride 105 mMol/L (98-107); Creatinine (Component) 1.2 mg/dL (0.6-1.3); Globulin 2.3 gm/dL (2.3-3.5); Glucose 117 mg/dL (74-106); Osmolality,Calculated 286 (275-295); Phosphorous 3.1 mg/dL (2.4-5.1); Potassium 4.9 mMol/L (3.4-5.1); Sodium 140 mMol/L (136-145); Total Protein 5.7 gm/dL (5.7-8.2); eGFR 59 See Note
[2024-10-14 07:19] LABS: Troponin I 0.076 ng/mL (0.0-0.045)
[2024-10-14] MEDS: APIXABAN 2.5 MG TABLET PO ×2 (08:20→20:32)
[2024-10-14] MEDS: ASPIRIN EC 81 MG TABEC PO (08:20)
--- NOTE | 2024-10-14 09:41 | PC.SS ---
Patient Sekou Scott is a 84 Year old male admitted for PNA. SS me with patient at bedside to discuss discharge plan and review demographic information. Patient appeared to be alert and oriented. Patient reports he lives at home alone. patient reports is his surrogate decision maker is his daughter, Mary Hussein, [phone]. Patient reports that prior to admission she utilized a cane and walker to assist with ambulation. Patient is able to complete all ADL's independently. Patient's choice of pharmacy is [facility]. Patient's PCP is Aj Raygoza. At time of discharge patient will return home. Family will provide transportation. Discharge plan: Home Next of Kin: Daughter, Mary Hussein [phone]
[2024-10-14] MEDS: CALCITONIN, SALMON SYNTH INJ 1 UNIT/0.005 ML VIAL 400 UNIT IM (10:03)
[2024-10-14] MEDS: SODIUM CHLORIDE 0.9% IV (12:59)
[2024-10-14] MEDS: PAMIDRONATE IV (12:59)
[2024-10-14 14:46] LABS: Cocci Serology, IgM Negative (Negative)
--- NOTE | 2024-10-14 15:16 | PC.SS ---
SS follow up note; Patient reports he still feels weak, SS will follow up with patient in regards to discharge when patient is closer to Discharge. PT recommended SNF. SS will stand by for further needs.
--- NOTE | 2024-10-14 15:53 | ESPR_ITS ---
<Statement entered by Edmond Bean MD - 10/20/24 13:40> I reviewed above note and agree with findings and plans. I have also personally examined the patient with medicine team and went over assessment and plan with medical team including research intern and resident physician. Documentation for date of: 10/14/24 Subjective Subjective Interval history: 10/14: Mr. Sapp is an overnight admitted. Patient is seen and examined at bedside this morning patient's 3 children 2 daughters and a son are at bedside. Patient states that he has been having a cough and generalized weakness for the past 6 weeks for which his PCP prescribed azithromycin and doxycycline without any improvement patient has progressively worsened with bilateral lower extremity edema was noted. Patient states he sees Dr. Grider who reduced his amlodipine dose to once daily. He states his lower extremity edema however is slightly better today than previous days. Patient is having severe shortness of breath currently saturating 95% on 3 L of oxygen. Patient denies any chest pain, abdominal pain, nausea, vomiting. Exam Vital Signs Temp Pulse Resp BP Pulse Ox O2 Del Method O2 Flow Rate 96.5 F L 97 17 112/60 93 L Nasal Cannula 3 10/14/24 12:00 10/14/24 12:00 10/14/24 12:00 10/14/24 12:00 10/14/24 12:10/14/24 12:10/14/24 12:00 Narrative Exam GENERAL: A&Ox3 . Awake, Not in acute distress NEURO: no focal neurological deficits HEENT: Atraumatic, Normocephalic. mucous membranes moist. Eyes open, symmetrical, & clear HEART: Normal Heart Sounds LUNGS: Bilateral crackles on auscultation ABDOMEN: soft, non-distended, non-tender, bowel sounds heard, no guarding or rebound tenderness SKIN: No Rash or ecchymoses EXTREMITIES: 3+ pitting edema extending to knees bilaterally, no tenderness, able to move all 4 extremities Objective Labs 10/15/24 05:43 10/15/24 05:43 Labs: Laboratory Results - last 24 hr 10/13/24 10/13/24 10/13/24 16:16 16:20 16:54 WBC 9.3 RBC 4.56 Hgb 14.3 Hct 43.9 MCV 96 MCH 31.4 MCHC 32.6 RDW Std Deviation 49.5 H Plt Count 174 Neut % (Auto) 73 Lymph % (Auto) 10 Miner % (Auto) 10 Eos % (Auto) 6 Baso % (Auto) 1 Neut # (Auto) 6.8 Lymph # (Auto) 1.0 Miner # (Auto) 0.9 H Eos # (Auto) 0.6 H Baso # (Auto) 0.1 Immature Gran # (Auto) 0.05 H Absolute Nucleated RBC 0.00 Immature Gran % 1 H Nucleated RBC % 0 PT 12.2 INR 1.1 APTT 26.3 Sodium 139 Potassium 5.2 H Chloride 103 Carbon Dioxide 28.7 Anion Gap 7 BUN 35 H Creatinine 1.4 H Estim Creat Clear Calc 46.7 L eGFR 49 L BUN/Creatinine Ratio 25 H Glucose 117 H Calculated Osmolality 286 Lactic Acid 2.2 H Calcium 12.5 H Corrected Calcium 12.7 H Ionized Calcium Phosphorus Magnesium Total Bilirubin 0.7 AST 19 ALT 18 Alkaline Phosphatase 283 H Troponin I 0.095 H* C-Reactive Prot, Quant 2.7 H B-Natriuretic Peptide 274 H Total Protein 6.3 Albumin 3.7 Globulin 2.6 Albumin/Globulin Ratio 1.4 Procalcitonin 0.35 Ur Collection Type Clean Catch Urine Color Lt-Yellow Urine Clarity Clear Urine pH 6.0 Ur Specific [place] 1.016 Urine Protein Negative Urine Glucose (UA) Negative Urine Ketones Negative Urine Blood Negative Urine Nitrite Negative Urine Bilirubin Negative Urine Urobilinogen (Auto) Negative Ur Leukocyte Esterase Negative Urine RBC 2 Urine WBC 1 Ur Squamous Epith Cells < 1 Urine Bacteria None Hyaline Casts < 1 Ur Culture Indicated? Not Indicated Coccidioides IgM Ab RSV Rapid Negative 10/13/24 10/13/24 10/14/24 18:23 19:48 05:56 WBC 8.1 RBC 4.19 L Hgb 13.2 L Hct 40.9 L MCV 98 MCH 31.5 MCHC 32.3 RDW Std Deviation 51.6 H Plt Count 221 D Neut % (Auto) 71 Lymph % (Auto) 11 Miner % (Auto) 10 Eos % (Auto) 7 Baso % (Auto) 0 Neut # (Auto) 5.7 Lymph # (Auto) 0.9 L Miner # (Auto) 0.8 Eos # (Auto) 0.6 H Baso # (Auto) 0.0 Immature Gran # (Auto) 0.06 H Absolute Nucleated RBC 0.00 Immature Gran % 1 H Nucleated RBC % 0 PT INR APTT Sodium 140 Potassium 4.9 Chloride 105 Carbon Dioxide 30.6 Anion Gap 4 L BUN 31 H Creatinine 1.2 Estim Creat Clear Calc 54.0 L eGFR 59 L BUN/Creatinine Ratio 26 H Glucose 117 H Calculated Osmolality 286 Lactic Acid 1.7 Calcium 11.8 H Corrected Calcium 12.3 H Ionized Calcium 5.5 Phosphorus 3.1 Magnesium 2.0 Total Bilirubin 0.6 AST 17 ALT 16 Alkaline Phosphatase 256 H D Troponin I 0.095 H* 0.076 H* C-Reactive Prot, Quant B-Natriuretic Peptide Total Protein 5.7 Albumin 3.4 Globulin 2.3 Albumin/Globulin Ratio 1.5 Procalcitonin Ur Collection Type Urine Color Urine Clarity Urine pH Ur Specific [place] Urine Protein Urine Glucose (UA) Urine Ketones Urine Blood Urine Nitrite Urine Bilirubin Urine Urobilinogen (Auto) Ur Leukocyte Esterase Urine RBC Urine WBC Ur Squamous Epith Cells Urine Bacteria Hyaline Casts Ur Culture Indicated? Coccidioides IgM Ab RSV Rapid 10/14/24 10:48 WBC RBC Hgb Hct MCV MCH MCHC RDW Std Deviation Plt Count Neut % (Auto) Lymph % (Auto) Miner % (Auto) Eos % (Auto) Baso % (Auto) Neut # (Auto) Lymph # (Auto) Miner # (Auto) Eos # (Auto) Baso # (Auto) Immature Gran # (Auto) Absolute Nucleated RBC Immature Gran % Nucleated RBC % PT INR APTT Sodium Potassium Chloride Carbon Dioxide Anion Gap BUN Creatinine Estim Creat Clear Calc eGFR BUN/Creatinine Ratio Glucose Calculated Osmolality Lactic Acid Calcium Corrected Calcium Ionized Calcium Phosphorus Magnesium Total Bilirubin AST ALT Alkaline Phosphatase Troponin I C-Reactive Prot, Quant B-Natriuretic Peptide Total Protein Albumin Globulin Albumin/Globulin Ratio Procalcitonin Ur Collection Type Urine Color Urine Clarity Urine pH Ur Specific [place] Urine Protein Urine Glucose (UA) Urine Ketones Urine Blood Urine Nitrite Urine Bilirubin Urine Urobilinogen (Auto) Ur Leukocyte Esterase Urine RBC Urine WBC Ur Squamous Epith Cells Urine Bacteria Hyaline Casts Ur Culture Indicated? Coccidioides IgM Ab Negative RSV Rapid Quality Measures Quality Measures VTE prophylaxis Advance care planning discussed with:: patient Assessment & Plan Assessment Current Active Medications: Generic Name Dose Route Start Last Admin Trade Name Freq PRN Reason Stop Dose Admin Acetaminophen 650 mg 10/13/24 21:44 Acetaminophen 325 Mg Tablet PO 11/12/24 21:43 Q6H PRN Fever >100.4 or Pain 1-10 Albuterol/Ipratropium 3 ml 10/13/24 21:44 10/13/24 23:01 Albuterol/Ipratropium (Duoneb) Rt Diana 3 Ml Nebu INH 11/13/24 00:59 3 ml Q6HRRT PRN Administration Shortness of breath or wheezing Apixaban 2.5 mg 10/14/24 09:00 10/14/24 08:20 Apixaban 2.5 Mg Tablet PO 11/13/24 08:59 2.5 mg BID MARCY Administration Aspirin 81 mg 10/14/24 09:00 10/14/24 08:20 Aspirin Ec 81 Mg Tabec PO 11/13/24 08:59 81 mg DAILY MARCY Administration Benzonatate 200 mg 10/13/24 23:10 Benzonatate 100 Mg Capsule PO 11/12/24 23:14 TID PRN cough Protocol Bisacodyl 10 mg 10/13/24 21:44 Bisacodyl 5 Mg Tabec PO 11/12/24 21:43 QDAY PRN CONSTIPATION Protocol Famotidine 20 mg 10/13/24 23:23 Famotidine 20 Mg Tablet PO 11/12/24 23:22 DAILY PRN GERD Furosemide 40 mg 10/13/24 23:15 10/14/24 00:18 Furosemide Inj 10 Mg/Ml 4ml Vial IVP 11/12/24 23:14 Not Given DAILY [facility] Ceftriaxone Sodium/Dextrose 50 mls @ 100 mls/hr 10/14/24 21:00 Rocephin/D5w 1gm Iv Premix IV 10/21/24 20:59 DAILY@2100 [facility] Pamidronate Disodium 60 mg/ 1,006.6667 mls @ 251.667 mls/hr 10/14/24 12:00 10/14/24 12:59 Sodium Chloride IV 10/14/24 15:59 251.667 mls/hr X1 ONE Administration Ondansetron HCl 4 mg 10/13/24 21:44 Ondansetron Inj 2 Mg/Ml Inj 2 Ml IV 11/12/24 21:43 Q6H PRN NAUSEA OR VOMITING Protocol Pantoprazole Sodium 40 mg 10/14/24 06:00 10/14/24 05:42 Pantoprazole 40 Mg Tablet PO 11/13/24 05:59 40 mg DAILY@0600 [facility] Administration Plan Mr. Scott is a 84-year-old male with past medical history of afib on Eliquis, hypertension, prediabetes, and BPH who presented to the ED on 10/13/2024 with 6 weeks of cough, SOB , worsening generalized body weakness and bilateral leg swelling for the last 3 days. Patient is admitted to the hospital for acute hypoxic respiratory failure secondary to pneumonia and CHF exacerbation. #Acute hypoxic respiratory failure #Community-acquired pneumonia #Acute CHF exacerbation #Lower extremity edema -Patient has productive cough, generalized weakness, shortness of breath and lower extremity edema for several weeks -Chest x-ray: diffuse significant bilateral pneumonia, Mild associated heart failure -Venous Doppler ultrasound of lower extremities bilaterally: Negative for deep vein thrombosis -EKG: A-fib with SVR Plan: -Fluid restrictions 1500 -Strict ins and outs -Obtain weight daily -DuoNebs every 6 hours as needed -Patient is advised to keep legs elevated with a pillow under LE ?O2 support PRN -Echocardiogram ordered -Research Professional Dr. Grider consulted, appreciate recommendations -Furosemide 40 Mg IVP daily -Ceftriaxone 1 g daily 10/14- Hypercalcemia -Corrected calcium on labs is 12.3, patient denies any prior knowledge of hypercalcemia and cannot recall if he takes any calcium supplements -PTH and vitamin D is pending -Overnight patient was given calcitonin 400 unit x 1 -Pamidronate 60 Mg x 1 ordered -Will monitor CMP NSTEMI, type II -Patient denies chest pain -Patient has demand ischemia likely secondary to acute illness -Initial troponin 0.095 -> 0.095 -> 0.76 History of CVA in the setting of A-fib -Patient patient states he has a history of stroke without residual deficit many years ago was diagnosed with A-fib and was started on Eliquis by his flight/transport nurse Dr. Grider -Resume home Eliquis 2.5 Mg twice daily and aspirin 81 Mg daily #BPH -Resume home finasteride 5 Mg daily and tamsulosin 0.4 Mg p.o. daily Health Maintenance Disposition: telemetry for acute hypoxic respiratory failure secondary to bilateral pneumonia and CHF exacerbation DVT Prophylaxis: Patient is on home Eliquis GI Prophylaxis: Pantoprozol-40 IV Qday Diet: Cardiac Diet Lines: Peripheral lines Code status: Full Assessment and plan discussed with my attending physician Dr. Geneva Holguin (PGY-1)- Internal medicine resident
[2024-10-14] MEDS: cefTRIAXone/D5w 1gm IV premix 50 ML IV (20:30)
[2024-10-15] VITALS (10 sets, daily range): BP systolic 115–143; BP diastolic 49–94; PULSE 65–85; RESP 20–39; TEMP 35.9–36.8; O2SAT 92–95; BMI 33.7; BMI 12.0
[2024-10-15 03:13] LABS: Vitamin D 25 Hydroxy Total 47.3 ng/mL (7.3-40.2)
[2024-10-15] MEDS: PANTOPRAZOLE 40 MG TABLET PO (05:33)
[2024-10-15 06:30] LABS: Basophils % (Auto) 0 % (0-2.5); Eosinophils # (Auto) 0.5 Thou/mm3 (0.0-0.5); Eosinophils % (Auto) 7 % (0-10); Hemoglobin 12.8 g/dL (13.5-16.0); Immature Granulocytes % (Auto) 1 % (0-0); Immature Granulocytes Auto 0.04 Thou/mm3 (0.00-0.00); Lymphocytes # (Auto) 0.8 Thou/mm3 (1.0-4.8); Lymphocytes % (Auto) 9 % (10-50); Mean Corpuscular HGB Conc 32.8 g/dl (31.0-37.0); Mean Corpuscular Hemoglobin 31.8 pg (25.0-35.0); Mean Corpuscular Volume 97 fL (80-100); Monocytes # (Auto) 0.8 Thou/mm3 (0.0-0.8); Monocytes % (Auto) 9 % (0-12); Neutrophils # (Auto) 6.2 Thou/mm3 (1.8-7.7); Neutrophils % (Auto) 74 % (37-80); Nucleated Red Blood Cell % 0 /100 WBC (0); Platelet Count 145 Thou/mm3 (140-440); RDW Standard Deviation 51.4 fL (35.1-43.9); Red Blood Count 4.02 Miln/mm3 (4.50-5.90); White Blood Count 8.3 Thou/mm3 (3.8-10.6)
[2024-10-15 06:59] LABS: Alanine Aminotransferase 16 U/L (10-49); Albumin, Serum 3.2 gm/dL (3.4-4.8); Albumin/Globulin Ratio 1.4 (1.2-2.2); Alkaline Phosphatase 246 U/L (46-116); Anion Gap 6 (7-16); Aspartate Amino Transferase 23 U/L (0-34); BUN/Creatinine Ratio 29 Ratio (12-20); Bilirubin,Total 0.5 mg/dL (0.3-1.2); Blood Urea Nitrogen 32 mg/dL (9-23); Calcium (Corrected) 11.6 mg/dL (8.5-10.1); Carbon Dioxide 28.9 mMol/L (20.0-31.0); Chloride 105 mMol/L (98-107); Creatinine (Component) 1.1 mg/dL (0.6-1.3); Estimated Creatinine Clearance 60.1 mL/min (>60); Globulin 2.3 gm/dL (2.3-3.5); Glucose 134 mg/dL (74-106); Osmolality,Calculated 288 (275-295); Potassium 4.7 mMol/L (3.4-5.1); Sodium 140 mMol/L (136-145); Total Protein 5.5 gm/dL (5.7-8.2); eGFR > 60 See Note
[2024-10-15] MEDS: ASPIRIN EC 81 MG TABEC PO (08:43)
[2024-10-15] MEDS: APIXABAN 2.5 MG TABLET PO (08:43)
[2024-10-15] MEDS: FINASTERIDE 5 MG TABLET PO (08:43)
[2024-10-15] MEDS: ALBUTEROL/IPRATROPIUM (Duoneb) RT SOL 3 ML NEBU INH (09:12)
--- NOTE | 2024-10-15 09:41 | PC.SS ---
Update: Patient on IV antibiotics, utilizing oxygen.
--- NOTE | 2024-10-15 12:09 | XR_ITS ---
Examination: Right shoulder AP single view Technique one AP portable right shoulder single view Exam date and time: 10/15/2024 1240 hours INDICATIONS: Chronic right shoulder pain years. FINDINGS: Advanced narrowing glenohumeral joint Prominent calcific tendinitis No fracture or shoulder dislocation Extensive parenchymal disease IMPRESSION: Advanced narrowing glenohumeral joint Prominent calcific tendinitis
[2024-10-15] MEDS: SENNA TABLET 1 TAB PO (12:43)
[2024-10-15] MEDS: POLYETHYLENE GLYCOL 17 GM PACKET PO (12:43)
[2024-10-15 13:05] LABS: D-Dimer 1510 ng/mL (<600)
--- NOTE | 2024-10-15 13:13 | PC.SS ---
INVENTORY CLERK met with patient at bedside to discuss discharge plan. At bedside were patient's daughters, Anup Overton and Maral Kirby. Family informed INVENTORY CLERK of plan to discharge patient to acute rehabilitation. Per patient's daughters desire to have patient receive extensive physical therapy due to patient residing alone at home. INVENTORY CLERK informed family that PT evaluation would be needed to confirm need for acute rehabilitation placement. In addition patient would need qualifying diagnosis for placement. If patient does not meet criteria for acute rehabilitation placement, family is open to SNF.
--- NOTE | 2024-10-15 13:45 | XR_ITS ---
Examination: Duplex scan of the upper extremity, unilateral right arm Date and time of exam: October 15, 2024 1430 hours INDICATIONS: Right shoulder and arm pain beginning 3 days ago Technique: Duplex scan of the extremity veins using B-mode/grayscale imaging and Doppler spectral analysis and color flow Attention is directed to internal echogenicity, compression and augmentation involving these veins, color flow assessment, spectral analysis Findings: Major deep venous structures in the extremity demonstrate normal course and caliber. There is no evidence of deep vein thrombosis. Normal color flow and spectral analysis Impression: Negative for DVT.. Partially cystic soft tissue masses upper outer right shoulder 1.9 x 1.3 x 1.6 cm, medial shoulder 5.3 x 5.0 x 0.8 cm, clinical correlation advised
--- NOTE | 2024-10-15 13:45 | PCS.ST ---
Swallow Evaluation completed. Functional aurelio-pharyngeal swallow for age/gender with s/s of esophageal dysfunction.
--- NOTE | 2024-10-15 13:52 | XR_ITS ---
Examination: CT brain head without contrast. 2-D sagittal coronal reconstructions Date and time of exam:October 15, 2024 at 1544 hours Comparison November 25, 2011 INDICATIONS: Altered mental status today CTDI: vol (mGy):56.7 DLP: (mGycm):1186 Technique: Multiple CT axial sections of the brain have been obtained, 5 mm slice thickness. Contrast has not been administered. 2-D sagittal, coronal reconstructions have been obtained Low dose protocols were performed. One or more of the following dose reduction techniques were used; automated exposure control, adjustment of the mA and/or KV according to patient size, use of iterative reconstruction technique. Findings: No significant ventricular enlargement. Intra-axial or extra-axial hemorrhage density is not seen. No mass effect or midline shift Basal cisterns are not remarkable. Fourth ventricle is midline. Cranial vault intact. Impression: Negative for acute hemorrhage, mass effect or midline shift As clinically warranted, brain MRI follow-up would best assess for acute ischemic change
--- NOTE | 2024-10-15 14:25 | PC.SS ---
Rounding Note: Patient receiving IV antibiotics continue to diuresis patient. CTA pending.
--- NOTE | 2024-10-15 14:31 | XR_ITS ---
Examination: CTA chest with intravenous contrast 2-D reconstructions 3-D reconstructions, vascular Date and time of exam: October 15, 2024 1549 hours INDICATIONS: Chest pain shortness of breath today, clinical diagnosis pulmonary embolus CTDI: vol (mGy) 137.53 DLP: (mGycm) 756 Technique: Multiple axial sections of the thorax have been obtained. 3 mm slice thickness, from below the hemidiaphragms to above the apices of the lungs. Mediastinal and lung density settings have been obtained. 2-D sagittal and coronal reconstructions. 3-D angiographic renderings, 3-D volume renderings, 3D post processing, vascular maximum intensity projections obtained. Contrast administered is 100 cc Isovue-370. Low dose protocols were performed. One or more of the following dose reduction techniques were used; automated exposure control, adjustment of the mA and/or KV according to patient size, use of iterative reconstruction technique. Findings: AP dimension ascending thoracic aorta 3.9 cm No pulmonary artery emboli Prominent vascular congestion Small bilateral pleural effusions Significant bibasilar pneumonia but diffuse nodular infiltrate throughout both lungs No focal liver lesions Contracted gallbladder Osteolytic lesions T8, T6, T5, T4, the largest involving T8 IMPRESSION: Negative for pulmonary artery emboli Extensive nodular parenchymal disease throughout both lungs, the subcentimeter bilateral nodules noted could be infectious in etiology or represent pulmonary nodular metastatic disease, clinical correlation advised and follow-up recommended post treatment for pneumonia 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
[2024-10-15 14:38] LABS: Cocci Serology, IgG Negative (Negative)
--- NOTE | 2024-10-15 14:38 | XR_ITS ---
Examination: CT abdomen with intravenous contrast CT pelvis with intravenous contrast 2-D coronal reconstructions 2-D sagittal reconstructions Date and time of exam:October 15, 2024 1549 hours Comparison October 26, 2023 INDICATIONS: Abdominal pain beginning several months ago. CTDI: vol (mGy) 17.5 DLP: (mGycm) 1714 Technique: Multiple axial sections of the abdomen and pelvis have been obtained. 64 slice high-resolution scanner used. 3 mm axial sections have been obtained, post intravenous injection 100 cc Isovue-370 2-D sagittal, coronal reconstructions obtained. Low dose protocols were performed. One or more of the following dose reduction techniques were used; automated exposure control, adjustment of the mA and/or KV according to patient size, use of iterative reconstruction technique. Findings: Moderate enlargement cardiac contour Small bilateral pleural effusions Pneumonia at the lung bases Liver is irregular in contour, no focal liver lesions Contracted gallbladder No splenic mass No pancreatic mass 14 cm right renal cyst, 3.7 cm left renal cyst Numerous smaller cysts No hydronephrosis Abdominal aortic calcification no aneurysmal dilatation No pericecal inflammatory change No bowel obstruction Abundant stool in the rectum with rectal wall thickening Moderate prostatomegaly Fusion L3-L5 Severe osteopenia IMPRESSION: Poor primary hepatocellular disease Multiple benign renal cysts, the largest upper pole right kidney 14 cm No bowel obstruction Significant stool in the rectum with proctitis pattern
--- NOTE | 2024-10-15 15:02 | PD.RESPRO ---
Documentation for date of: 10/15/24 Senior resident attestation: Patient is a 89-year-old male with past medical history of atrial fibrillation Eliquis, hypertension, prediabetes, BPH, patient was admitted for acute hypoxic respiratory failure secondary pneumonia and CHF exacerbation. Chest imaging shows diffuse infiltrates bilaterally, concern for bilateral pneumonia versus possible metastatic disease, initial workup shows ulcerated lesion thoracic spine, further imaging unable to show primary malignancy, PSA levels were normal, patient has reported dysphagia and sticking sensation of food in esophagus, GI was consulted for possible EGD and biopsy. #Bilateral pneumonia?cocci negative, sputum culture positive for gram-negative rods, antibiotics ceftriaxone and azithromycin discontinued, started on cefepime 10/16/2024, pending final microbiology results. Also possible metastatic disease, unknown primary. #Acute hypoxic respiratory failure?currently on 4 to 5 L oxygen via nasal cannula. 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 #Pulm embolism ruled out?of note patient was inadequately anticoagulated on Eliquis 2.5, does not meet criteria for low-dose Eliquis, started on full dose anticoagulation Eliquis 5 mg twice daily. #Acute kidney injury resolved #NSTEMI type II #Rate controlled A-fib Patient evaluated and examined at the bedside, plan of care discussed with rest of the team including my attending physician, except as noted. Quresh PGY2 Subjective Subjective Interval history: 10/15: no acute overnight events. Patient seen and examined at bedside this morning patient's daughters and granddaughter are at bedside patient is saturating 95% on 5 L of oxygen. Patient complains of severe right shoulder pain which he states been there for the last 2 years but has gotten worse in the last few weeks to the point where he is unable to lift his arm. Patient still continues to have shortness of breath but denies chest pain or abdominal pain. Patient family states last night he was seeing black ants and bugs crawling on the chiang however patient was not agitated or confused. Daughters at bedside requested for the hospitalist team to speak to great [id number] Analy who is a physician in [place] regarding his hospitalization and findings. Risks and benefits have been explained at great lengths with the family regarding patient's acute kidney injury and current renal function and concurrent use of diuretics as well as contrast to rule out PE and malignancy. Patient's family and Dr. Beckford has agreed to contrast study to assess for pulmonary embolism and to rule out malignancy regardless of possibility of irreversible kidney injury. Per daughter, they have called Dr. Grider to come see Mr. Scott in the hospital and had requested for the hospitalist team to give a call to his director of payroll Dr. Grider so that he can be evaluated in hospital. Will order shoulder x-ray, CTA of chest and abdomen/pelvis, Pt has echo done at Dr. Grider office last week, will obtain records and unable will repeat echo this week. Pt complains of severe acid reflux, worse today and was unable to finish his breakfast, and recent weight loss and Pt has paternal family history of esophageal cancer therefore will order speech evaluation to assess for dysphagia and then consider consulting GI specialist Dr. Mead for further studies. Exam Vital Signs Temp Pulse Resp BP Pulse Ox O2 Del Method O2 Flow Rate 97.4 F 80 24 H 123/66 94 L Nasal Cannula 4 10/15/24 12:00 10/15/24 12:00 10/15/24 12:00 10/15/24 12:00 10/15/24 12:00 10/15/24 12:00 10/15/24 12:00 Narrative Exam GENERAL: A&Ox3 . Awake, Not in acute distress NEURO: no focal neurological deficits HEENT: Atraumatic, Normocephalic. mucous membranes moist. Eyes open, symmetrical, & clear HEART: Normal Heart Sounds LUNGS: Bilateral crackles on auscultation ABDOMEN: soft, non-distended, non-tender, bowel sounds heard, no guarding or rebound tenderness SKIN: No Rash or ecchymoses EXTREMITIES: 3+ pitting edema extending to knees bilaterally, no tenderness, right upper extremity 3+ edema Objective Labs 10/16/24 06:15 10/16/24 06:15 Labs: Laboratory Results - last 24 hr 10/14/24 10/14/24 10/15/24 05:56 10:48 05:43 WBC 8.3 RBC 4.02 L Hgb 12.8 L Hct 39.0 L MCV 97 MCH 31.8 MCHC 32.8 RDW Std Deviation 51.4 H Plt Count 145 D Neut % (Auto) 74 Lymph % (Auto) 9 L [place] % (Auto) 9 Eos % (Auto) 7 Baso % (Auto) 0 Neut # (Auto) 6.2 Lymph # (Auto) 0.8 L [place] # (Auto) 0.8 Eos # (Auto) 0.5 Baso # (Auto) 0.0 Immature Gran # (Auto) 0.04 H Absolute Nucleated RBC 0.00 Immature Gran % 1 H Nucleated RBC % 0 D-Dimer 1510 H Sodium 140 Potassium 4.7 Chloride 105 Carbon Dioxide 28.9 Anion Gap 6 L BUN 32 H Creatinine 1.1 Estim Creat Clear Calc 60.1 L eGFR > 60 BUN/Creatinine Ratio 29 H Glucose 134 H Calculated Osmolality 288 Calcium 11.0 H Corrected Calcium 11.6 H Total Bilirubin 0.5 AST 23 ALT 16 Alkaline Phosphatase 246 H Total Protein 5.5 L Albumin 3.2 L Globulin 2.3 Albumin/Globulin Ratio 1.4 25-OH Vitamin D Total 47.3 H PTH Intact 16.0 L Coccidioides IgG Ab Negative Quality Measures Quality Measures VTE prophylaxis Advance care planning discussed with:: patient and child Assessment & Plan Assessment Current Active Medications: Generic Name Dose Route Start Last Admin Trade Name Freq PRN Reason Stop Dose Admin Acetaminophen 650 mg 10/13/24 21:44 Acetaminophen 325 Mg Tablet PO 11/12/24 21:43 Q6H PRN Fever >100.4 or Pain 1-10 Albuterol/Ipratropium 3 ml 10/13/24 21:44 10/15/24 09:12 Albuterol/Ipratropium (Duoneb) Rt Diana 3 Ml Nebu INH 11/13/24 00:59 3 ml Q6HRRT PRN Administration Shortness of breath or wheezing Apixaban 5 mg 10/15/24 21:00 Apixaban 2.5 Mg Tablet PO 11/14/24 20:59 BID MARCY Aspirin 81 mg 10/14/24 09:00 10/15/24 08:43 Aspirin Ec 81 Mg Tabec PO 11/13/24 08:59 81 mg DAILY MARCY Administration Benzonatate 200 mg 10/15/24 09:56 Benzonatate 100 Mg Capsule PO 11/12/24 23:14 TID PRN cough Protocol Bisacodyl 10 mg 10/13/24 21:44 Bisacodyl 5 Mg Tabec PO 11/12/24 21:43 QDAY PRN CONSTIPATION Protocol Famotidine 20 mg 10/13/24 23:23 Famotidine 20 Mg Tablet PO 11/12/24 23:22 DAILY PRN GERD Finasteride 5 mg 10/15/24 09:00 10/15/24 08:43 Finasteride 5 Mg Tablet PO 11/14/24 08:59 5 mg QDAY MARCY Administration Furosemide 40 mg 10/16/24 09:00 Furosemide Inj 10 Mg/Ml 4ml Vial IVP 11/15/24 08:59 QDAY MARCY Guaifenesin/Dextromethorphan 1 each 10/15/24 09:51 Guaifenesin/Dm Tablet PO 11/14/24 09:50 BID PRN COUGH Ceftriaxone Sodium/Dextrose 50 mls @ 100 mls/hr 10/14/24 21:00 10/14/24 20:30 Rocephin/D5w 1gm Iv Premix IV 10/21/24 20:59 100 mls/hr DAILY@2100 MARCY Administration Azithromycin 500 mg/ Sodium 250 mls @ 250 mls/hr 10/15/24 14:22 Chloride IV 10/22/24 14:21 QDAY MARCY Lidocaine 1 patch 10/15/24 14:45 Lidocaine 5% 1 Patch TOP 11/14/24 14:44 DAILY PRN RIGHT SHOULDER PAIN Ondansetron HCl 4 mg 10/13/24 21:44 Ondansetron Inj 2 Mg/Ml Inj 2 Ml IV 11/12/24 21:43 Q6H PRN NAUSEA OR VOMITING Protocol Pantoprazole Sodium 40 mg 10/14/24 06:00 10/15/24 05:33 Pantoprazole 40 Mg Tablet PO 11/13/24 05:59 40 mg DAILY@0600 MARCY Administration Polyethylene Glycol 17 gm 10/15/24 12:15 10/15/24 12:43 Polyethylene Glycol 17 Gm Packet PO 11/14/24 12:14 17 gm QDAY MARCY Administration Sennosides 1 tab 10/15/24 12:15 10/15/24 12:43 Senna Tablet PO 11/14/24 12:14 1 tab QDAY MARCY Administration Protocol Plan Mr. Scott is a 84-year-old male with past medical history of afib on Eliquis, hypertension, prediabetes, and BPH who presented to the ED on 10/13/2024 with 6 weeks of cough, SOB , worsening generalized body weakness and bilateral leg swelling for the last 3 days. Patient is admitted to the hospital for acute hypoxic respiratory failure secondary to pneumonia and CHF exacerbation. #Acute hypoxic respiratory failure #Community-acquired pneumonia #Acute CHF exacerbation #Lower extremity edema -Patient has productive cough, generalized weakness, shortness of breath and lower extremity edema for several weeks -Chest x-ray: diffuse significant bilateral pneumonia, Mild associated heart failure -Venous Doppler ultrasound of lower extremities bilaterally: Negative for deep vein thrombosis -EKG: A-fib with SVR -Cocci IgM negative Plan: -Fluid restrictions 1500 -Strict ins and outs -Obtain weight daily -DuoNebs every 6 hours as needed -Mucinex as needed -Patient is advised to keep legs elevated with a pillow under LE ?O2 support PRN -Echocardiogram ordered -[employer] Dr. Grider consulted, appreciate recommendations -Furosemide 40 Mg IVP BID -Ceftriaxone 1 g daily 10/14- -azithromycin 500 Mg IV daily 10/15- #Concern for PE #Generalized weakness #Hypercalcemia -on admission Corrected calcium on labs is 12.3, patient denies any prior knowledge of hypercalcemia and cannot recall if he takes any calcium supplements -Elevated corrected calcium 12.7. On the patient's home medications list brought in by family, listed is Vitamin D3 125 mcg (5000 IU) qday. Likely secondary to Vitamin D hypervitaminosis if he is still actively taking it. Other differentials include possible malignancy, parathyroid disorders -Wells criteria for pulmonary embolism is 4.5 patient is at moderate risk group: 16.2% chance of PE in an ED population Plan: -PTH is pending -25 hydroxy vitamin D- 47 -patient was given calcitonin 400 unit x 1 -Pamidronate 60 Mg x 1 ordered -CTA of chest/abdomen/pelvis ordered -Will monitor CMP #Acute Kidney Injunry?resolved Baseline Cr 1.1 Cr 1.4 on admission. Most likely prerenal in setting of decreased PO intake Plan: -monitor Daily CMP -On admission patient was given 1 L bolus fluid, will hold maintenance fluid due to patient's acute exacerbation of CHF and fluid overload state -Avoid nephrotoxins, renally dose medications #NSTEMI, type II -Patient denies chest pain -Patient has demand ischemia likely secondary to acute illness -Initial troponin 0.095 -> 0.095 -> 0.76 #History of CVA in the setting of #A-fib-rate controlled -Patient patient states he has a history of stroke without residual deficit many years ago was diagnosed with A-fib and was started on Eliquis by his director of payroll Dr. Grider -Resume home Eliquis 2.5 Mg twice daily and aspirin 81 Mg daily -Hold home metoprolol XL due to soft BP #GERD-like symptoms Patient complains of burning sensation whenever he eats causing poor appetite. -Pantoprazole 40 mg PO qday -Famotidine 20 mg PO qday prn if symptoms persist -Speech evaluation referral -Will consider consulting GI specialist if patient has difficulty swallowing #BPH -Resume home finasteride 5 Mg daily and tamsulosin 0.4 Mg p.o. daily Health Maintenance Disposition: telemetry for acute hypoxic respiratory failure secondary to bilateral pneumonia and CHF exacerbation DVT Prophylaxis: Patient is on home Eliquis GI Prophylaxis: Pantoprozol-40 IV Qday Diet: Cardiac Diet Lines: Peripheral lines Code status: Full Assessment and plan discussed with my senior resident Dr. Marcelo & attending physician Dr. Garett Holguin (PGY-1)- Internal medicine resident Attending Provider Attestation/Addendum Shaila Pitts, , attest that I was physically present for the rodriguez portions of the service and evaluated the patient with the resident and I reviewed and discussed the case with the resident and agree with the resident's findings and plans of care as documented above Patient seen and evaluated this AM. Cecilio at bedside. Patient states that his shoulder has been hurting for the past two weeks, but had sustained a fall about 2 years ago that resulted in occasional pain. Patient states that his range of motion has worsened the past two weeks. On passive ROM, patient can only externally rotate, internally rotate, flex and extend about 30 degrees. Daughters state that they note the patient's edema appears to have worsened in his upper extremities. Will continue with diuresis. CTA and CT abdomen/ pelvis were done due to concern for worsening vascular congestion noted on shoulder xr. Shoulder XR does not show any acute fractures. Suspect possible rotator cuff tear with which patient can f/u outpatient due to chronicity of pain. CT chest shows nodularity which is concerning for metastasis as patient had been on doxycycline and azithromycin outpatient without any resolution of his symptoms. Osteolytic lesions were also noted in thoracic spine. Will order PSA to rule out prostate CA. Patient denies any increased urinary frequency, straining, dysuria, decreased urinary stream. He had a colonoscopy about 3 years ago and reports that there were no significant findings. Patient has lost noticeable weight per family unintentionally. He also reports decreased appetite and difficulty swallowing at times. Patient states his father had esophageal CA in the past. Will have ST evaluate patient and patient may need GI w/u if anatomical dysfunction is suspected.
[2024-10-15] MEDS: FUROSEMIDE INJ 10 MG/ML 4ML VIAL 40 MG IVP (16:15)
[2024-10-15] MEDS: AZITHROMYCIN INJ 500 MG in SODIUM CHLORIDE 0.9% 250 ML 250 ML 250 MG IV (16:15)
[2024-10-15 17:54] LABS: Creatinine,Random Urine 24 mg/dL (30-125); Protein Total, Random Urine 6 mg/dL (1-14)
[2024-10-15 19:17] LABS: Prostate Specific Antigen 0.97 ng/mL (0-4.00)
--- NOTE | 2024-10-15 19:22 | ESCONSULT_ITS ---
RE: ANGELICA SEVILLA : 1940 DATE OF CONSULTATION: 10/15/2024 Consultation is asked by the hospitalist. PERTINENT HISTORY OF PRESENT ILLNESS: Mr. Angelica Sevilla is an 84-year-old gentleman who is known to have history of chronic hypertension and history of chronic atrial fibrillation. The patient also has history of congestive heart failure, which is most likely from diastolic dysfunction. The patient has been having symptoms of increasing weakness as well as cough, congestion, and increasing shortness of breath. The patient was brought in over to the Emergency Room and was reported to have significant bilateral pneumonia. The patient also was noted to have some vascular congestion. Since hospitalization, the patient has been treated with intravenous antibiotic therapy. The patient has also been on anticoagulant therapy for chronic atrial fibrillation and has been on antihypertensive medications. The patient is also known to have history of borderline diabetes mellitus. Presently, the patient is resting fairly comfortably in bed, though is still complaining of generalized weakness and fatigue. The patient denied any complaint of chest pain, though denies any complaint of skipped beats or palpitations. Denies any complaint of fever, chills, dizziness, or diaphoresis. The patient is complaining of some right shoulder pain though. PAST MEDICAL HISTORY: Significant for history of chronic hypertension for the last several years, history of chronic atrial fibrillation for the last several years and recently the patient had cardiac echo Doppler study done as an outpatient on 10/10/2024, which showed normal left ventricular systolic function with ejection fraction of 70% to 75%, mild aortic stenosis as well as mild tricuspid regurgitation was noted. Mild left ventricular enlargement was noted as well as moderate left atrial enlargement was noted. The patient recently also had lab work done on 10/09/2024, which showed BUN of 42, creatinine 1.4, potassium level of 4.9, BNP level was also mildly elevated. The patient also has had previous history of appendectomy several years ago, history of low back surgery few years ago, history of carpal tunnel surgery several years ago. PERSONAL HISTORY: The patient is a nonsmoker, nonalcoholic. FAMILY HISTORY: Noncontributory PHYSICAL EXAMINATION: VITAL SIGNS: The patient's blood pressure is 123/66, pulse rate is 83 per minute and irregularly irregular, respiratory rate is 25 per minute, temperature is 97.7. The oxygen saturation is 92% on 4 L of oxygen by nasal cannula. HEAD AND NECK: Unremarkable. JVP is not elevated. Carotid pulsations are palpable on both sides. No carotid bruits heard. HEART: No cardiomegaly clinically. The heart rhythm is irregularly irregular. No murmur or gallop is appreciated. LUNGS: Few basal rhonchi. No wheezing is heard. ABDOMEN: Soft. No organomegaly. EXTREMITIES: 1-2+ pedal edema is noted. NEUROLOGIC: Unremarkable. No focal localized or neuro deficit is appreciated. DIAGNOSTIC DATA: The patient's chest x-ray done on 10/13/2024 was reported to show bilateral pneumonia and mild cardiac enlargement. The patient's electrocardiogram showed atrial fibrillation with moderate ventricular response and right bundle branch block pattern. The venous study of the right shoulder and right arm area was reported to be unremarkable. The CT scan of the chest was reported to show negative for pulmonary emboli. Extensive parenchymal disease of both lower lungs was reported. LABORATORY DATA: Lab work on 10/13/2024 showed WBC count of 9,300, hemoglobin 14.3 with hematocrit of 43.9. Today's WBC count is 8,300, hemoglobin is 12.8 with hematocrit of 39.0. The patient's BUN on admission was 35, creatinine 1.4, potassium level was 5.2. Today's potassium level is down to 4.7, BUN is 32, creatinine is 1.1. The patient's troponin level was mildly elevated with admission troponin level of 0.095. Repeat troponin level is again 0.095 and third sat is 0.076. BNP level on admission was 274 and on 10/09/2024, the BNP level was 261. CLINICAL IMPRESSION: 1. Bilateral pneumonia. 2. Diastolic dysfunction with mild valvular heart disease of mild aortic stenosis and mild tricuspid regurgitation on recent cardiac echo Doppler study and normal left ventricular systolic function. 3. Chronic atrial fibrillation. 4. Chronic hypertension. 5. Borderline diabetes mellitus. 6. Azotemia. SUGGESTIONS: I agree with the present plan of management with the patient of continuing the patient on IV antibiotic therapy, continuing the patient on anticoagulant therapy, continuing the patient on intravenous diuretic therapy. I will follow the patient with you and highly thank you very much for letting me participate in the care of the patient. DT: 17:42:53 TT: 19:20:00 Ref: [id number] - TID: [id number]
[2024-10-15] MEDS: ACETAMINOPHEN 325 MG TABLET 650 MG PO (20:52)
[2024-10-15] MEDS: APIXABAN 2.5 MG TABLET 5 MG PO (20:52)
[2024-10-15] MEDS: cefTRIAXone/D5w 1gm IV premix 50 ML IV (20:53)
[2024-10-15] MEDS: guaiFENesin/DM TABLET 1 EACH PO (21:54)
--- NOTE | 2024-10-15 22:04 | PD.IMCONS ---
HPI Data of Consult Requesting Physician: Shaila Bajwa DO Primary Care Provider: Aj Raygoza MD Consult Narrative Reason for consult: Dysphagia History of present illness: 84 years old male being asked by the internal medicine team for dysphagia he has a 30 pound weight loss in the last few months and has a chronic cough since July and was admitted with bilateral pneumonia Currently on 5 L nasal cannula cc:: cc: Shaila Bajwa DO Review of Systems Review of Systems Systems Reviewed: All systems reviewed, normal except as documented Past Medical History Surgical History OTHER SURGICAL HX: Atrial fibrillation on Eliquis Essential hypertension BPH Diabetes mellitus type 2 Meds Home Medications and Allergies Home Medications ?Medication ?Instructions ?Recorded ?Confirmed ?Type finasteride 5 mg tablet (Proscar) 5 mg PO QDAY #0 tabs 04/06/16 10/14/24 History tamsulosin 0.4 mg capsule (Flomax) 0.4 mg PO QDAY ##0 04/06/16 10/14/24 History amlodipine 5 mg tablet 5 mg PO DAILY 10/14/24 10/14/24 History apixaban 2.5 mg tablet (Eliquis) 2.5 mg PO BID 10/14/24 10/14/24 History furosemide 40 mg tablet 40 mg PO BID 10/14/24 10/14/24 History losartan 100 mg tablet 100 mg PO DAILY 10/14/24 10/14/24 History metformin 500 mg tablet 500 mg PO DAILY 10/14/24 10/14/24 History metoprolol succinate 100 mg 100 mg PO DAILY 10/14/24 10/14/24 History tablet,extended release 24 hr potassium chloride 20 mEq 20 meq PO BID 10/14/24 10/14/24 History tablet,extended release(part/cryst) Allergies Allergy/AdvReac Type Severity Reaction Status Date / Time No Known Allergies Allergy Unverified 10/14/24 11:51 Exam Vital Signs Temp Pulse Resp BP Pulse Ox O2 Del Method O2 Flow Rate 97.9 F 78 34 H 121/49 L 94 L Nasal Cannula 4 10/15/24 20:00 10/15/24 20:00 10/15/24 20:00 10/15/24 20:00 10/15/24 20:00 10/15/24 20:00 10/15/24 20:00 Constitutional Comments: Chronically ill-appearing Routine Respiratory Exam Comments: basal crepitations Routine Abdominal Exam Comments: Soft nontender Results Labs 10/15/24 05:43 10/15/24 05:43 Labs: Short CBC 10/15/24 Range/Units 05:43 WBC 8.3 (3.8-10.6) Thou/mm3 Hgb 12.8 L (13.5-16.0) g/dL Hct 39.0 L (41.0-53.0) % Plt Count 145 D (140-440) Thou/mm3 BMP 10/15/24 05:43 Sodium 140 Potassium 4.7 Chloride 105 Carbon Dioxide 28.9 BUN 32 H Creatinine 1.1 Glucose 134 H Calcium 11.0 H Liver Function 10/15/24 Range/Units 05:43 Total Bilirubin 0.5 (0.3-1.2) mg/dL AST 23 (0-34) U/L ALT 16 (10-49) U/L Alkaline Phosphatase 246 H (46-116) U/L Albumin 3.2 L (3.4-4.8) gm/dL Assessment and Plan Additional Assessment & Plan Additional Plan: # Dysphagia # Abnormal weight loss Plan tentatively scheduled for fiberoptic esophagogastroduodenoscopy with possible biopsy possible Therapeutic intervention under intravenous moderate sedation of course it all depends upon his respiratory status in the FiO2 of the oxygen Other medical problems include # Atrial fibrillation on Eliquis # Essential hypertension # Diabetes mellitus type 2 # BPH Thank you very much for the opportunity to participate in the care of this patient
[2024-10-16] VITALS (14 sets, daily range): BP systolic 103–150; BP diastolic 56–77; PULSE 73–97; RESP 12–37; TEMP 36.4–36.8; O2SAT 90–96; BMI 12.0
--- NOTE | 2024-10-16 06:00 | XR_ITS ---
Examination: AP portable supine chest single view TECHNIQUE: AP portable supine chest single view Exam date: October 16, 2024 0540 hours Comparison October 13, 2024 INDICATIONS: Difficulty breathing discrete FINDINGS: Extensive bilateral nodular infiltrates Mild enlargement cardiac contour with vascular congestion Significant osteopenia IMPRESSION: Diffuse significant bilateral pneumonia Mild associated heart failure Continued follow-up recommended to exclude pulmonary nodular metastatic disease
[2024-10-16] MEDS: FUROSEMIDE INJ 10 MG/ML 4ML VIAL 40 MG IVP ×2 (06:13→17:06)
[2024-10-16] MEDS: PANTOPRAZOLE 40 MG TABLET PO (06:13)
[2024-10-16 06:48] LABS: Basophils % (Auto) 0 % (0-2.5); Eosinophils # (Auto) 0.6 Thou/mm3 (0.0-0.5); Eosinophils % (Auto) 8 % (0-10); Hematocrit 40.6 % (41.0-53.0); Hemoglobin 13.5 g/dL (13.5-16.0); Immature Granulocytes % (Auto) 0 % (0-0); Immature Granulocytes Auto 0.03 Thou/mm3 (0.00-0.00); Lymphocytes # (Auto) 0.7 Thou/mm3 (1.0-4.8); Lymphocytes % (Auto) 10 % (10-50); Mean Corpuscular HGB Conc 33.3 g/dl (31.0-37.0); Mean Corpuscular Hemoglobin 32.1 pg (25.0-35.0); Mean Corpuscular Volume 97 fL (80-100); Monocytes # (Auto) 0.7 Thou/mm3 (0.0-0.8); Monocytes % (Auto) 9 % (0-12); Neutrophils # (Auto) 5.4 Thou/mm3 (1.8-7.7); Neutrophils % (Auto) 72 % (37-80); Nucleated Red Blood Cell % 0 /100 WBC (0); Platelet Count 151 Thou/mm3 (140-440); RDW Standard Deviation 51.4 fL (35.1-43.9); White Blood Count 7.4 Thou/mm3 (3.8-10.6)
[2024-10-16 07:10] LABS: Misc Send Out* See Sep Rpt
[2024-10-16 07:10] LABS: Misc Send Out* See Sep Rpt
[2024-10-16 07:39] LABS: Alanine Aminotransferase 21 U/L (10-49); Albumin, Serum 3.2 gm/dL (3.4-4.8); Albumin/Globulin Ratio 1.4 (1.2-2.2); Alkaline Phosphatase 247 U/L (46-116); Anion Gap 6 (7-16); Aspartate Amino Transferase 28 U/L (0-34); BUN/Creatinine Ratio 25 Ratio (12-20); Bilirubin,Total 0.5 mg/dL (0.3-1.2); Blood Urea Nitrogen 27 mg/dL (9-23); Calcium 10.4 mg/dL (8.3-10.6); Chloride 102 mMol/L (98-107); Creatinine (Component) 1.1 mg/dL (0.6-1.3); Estimated Creatinine Clearance 60.1 mL/min (>60); Globulin 2.3 gm/dL (2.3-3.5); Glucose 124 mg/dL (74-106); Osmolality,Calculated 285 (275-295); Potassium 4.3 mMol/L (3.4-5.1); Sodium 140 mMol/L (136-145); Total Protein 5.5 gm/dL (5.7-8.2); eGFR > 60 See Note
[2024-10-16] MEDS: ASPIRIN EC 81 MG TABEC PO (08:54)
[2024-10-16] MEDS: APIXABAN 2.5 MG TABLET 5 MG PO (08:54)
[2024-10-16] MEDS: SENNA TABLET 1 TAB PO (08:54)
[2024-10-16] MEDS: AZITHROMYCIN 250 MG TABLET 500 MG PO (08:54)
[2024-10-16] MEDS: POLYETHYLENE GLYCOL 17 GM PACKET PO (08:54)
[2024-10-16] MEDS: FINASTERIDE 5 MG TABLET PO (08:55)
--- NOTE | 2024-10-16 09:02 | PC.NURSE ---
[facility] downtime occurred on 10-16-24 from 0100 to 0700
--- NOTE | 2024-10-16 11:25 | PC.NURSE ---
notified nancy sheridan of procedure on postponed for 10/18/24 due to receiving blood-thinners. Madison Gold recommends placing blood-thinners on hold and coags morning.
[2024-10-16] MEDS: ALBUTEROL/IPRATROPIUM (Duoneb) RT SOL 3 ML NEBU INH ×2 (11:40→18:40)
--- NOTE | 2024-10-16 13:16 | ESPR_ITS ---
RE: ANGELICA SEVILLA : 1940 DATE OF SERVICE: 10/16/2024 S: Mr. Sevilla is resting fairly comfortably. This morning, the patient is breathing fair on oxygen therapy. Denies any complaint of chest pain, though denies any complaints of skip beats or palpitations. O: Vital Signs: The patient's blood pressure this morning is 116/57. The pulse rate is 74 per minute and irregularly irregular. Temperature is 97.6. Respiratory rate is 22 per minute. Oximetry saturation on 4 L of oxygen by nasal cannula is 96%. Heart: Shows irregularly irregular heart rhythm. Lungs: Decreased breath sounds at the basis with basal rhonchi. Extremities: Trace pedal edema is noted. Laboratory Data: Today shows WBC count of 7400, hemoglobin 13.5 with a hematocrit of 40.6. The patient's BUN today is 27, creatinine 1.1, and potassium level is 4.3. Heart rhythm is staying in atrial fibrillation with moderate ventricular response. Repeat chest x-ray done earlier today showed extensive bilateral nodular infiltrates and the patient is being considered for possible lung biopsy. P: The cardiac status at the present time is stable and present medications will be continued as before. The apixaban will be withheld for the possible lung biopsy. DT: 12:02:59 TT: 13:14:00 Ref: [id number] - TID: [id number]
--- NOTE | 2024-10-16 13:20 | PC.CC ---
BIT GATHERER submitted referral for acute rehab on [facility] to following facilities: [facility] and [facility]. Results are pending.
--- NOTE | 2024-10-16 13:23 | PC.CC ---
Acute Care referral submitted on [facility] platform. Pending results. No preferred facility identified.
--- NOTE | 2024-10-16 14:01 | PD.RESPRO ---
Documentation for date of: 10/16/24 Senior resident attestation: Patient is a 89-year-old male with past medical history of atrial fibrillation Eliquis, hypertension, prediabetes, BPH, patient was admitted for acute hypoxic respiratory failure secondary pneumonia and CHF exacerbation. Chest imaging shows diffuse infiltrates bilaterally, concern for bilateral pneumonia versus possible metastatic disease, initial workup shows ulcerated lesion thoracic spine, further imaging unable to show primary malignancy, PSA levels were normal, patient has reported dysphagia and sticking sensation of food in esophagus, GI was consulted for possible EGD and biopsy. #Bilateral pneumonia?cocci negative, sputum culture positive for gram-negative rods, antibiotics ceftriaxone and azithromycin discontinued, started on cefepime 10/16/2024, pending final microbiology results. Also possible metastatic disease, unknown primary. #Acute hypoxic respiratory failure?currently on 4 to 5 L oxygen via nasal cannula. #CHF exacerbation?licensed physical therapist assistant Dr. Grider is consulted following the patient recommended IV diuresis and antibiotics. #Pulm embolism ruled out?of note patient was inadequately anticoagulated on Eliquis 2.5, does not meet criteria for low-dose Eliquis, started on full dose anticoagulation Eliquis 5 mg twice daily. #Acute kidney injury resolved #NSTEMI type II #Rate controlled A-fib Patient evaluated and examined at the bedside, plan of care discussed with rest of the team including my attending physician, except as noted. Quresh PGY2 Subjective Subjective Interval history: 10/16: No acute overnight events. Patient seen and examined at bedside this morning patient's daughter and son on also at bedside. Patient is saturating 96% 5 L of oxygen via nasal cannula patient endorses feeling much better and states his shortness of breath has improved significantly and he attributes it to the breathing treatments. Patient is informed if interventional radiology is able to axis a lung mass that can be biopsied then he will be done on . Patient's family was at bedside last evening when they are informed regarding new findings of the chest CTA as well as the abdomen. Further workup will be needed to rule out metastatic malignancy. EGD is scheduled for today by Dr. Mead. PSA is 0.97, creatinine 1.1 calcium is 11. Patient asked if we can get a scheduled DuoNebs instead of as needed because he feels much better after DuoNebs therapy. Dr. Grider confirmed he is okay with stopping Eliquis and aspirin for biopsy on . Patient has no other complaints. Exam Vital Signs Temp Pulse Resp BP Pulse Ox O2 Del Method O2 Flow Rate 97.5 F 74 26 H 111/56 L 93 L Nasal Cannula 4 10/16/24 12:00 10/16/24 12:00 10/16/24 12:10/16/24 12:10/16/24 12:10/16/24 12:10/16/24 12:00 Narrative Exam GENERAL: A&Ox3 . Awake, Not in acute distress NEURO: no focal neurological deficits HEENT: Atraumatic, Normocephalic. mucous membranes moist. Eyes open, symmetrical, & clear HEART: Normal Heart Sounds LUNGS: Clear breath sounds bilaterally ABDOMEN: soft, non-distended, non-tender, bowel sounds heard, no guarding or rebound tenderness SKIN: No Rash or ecchymoses, decubitus ulcer on buttocks EXTREMITIES:trace pitting edema extending to knees bilaterally, no tenderness Objective Labs 10/17/24 06:24 10/17/24 06:24 Labs: Laboratory Results - last 24 hr 10/14/24 10/15/24 10/15/24 10:48 15:23 18:22 WBC RBC Hgb Hct MCV MCH MCHC RDW Std Deviation Plt Count Neut % (Auto) Lymph % (Auto) Valencia % (Auto) Eos % (Auto) Baso % (Auto) Neut # (Auto) Lymph # (Auto) Valencia # (Auto) Eos # (Auto) Baso # (Auto) Immature Gran # (Auto) Absolute Nucleated RBC Immature Gran % Nucleated RBC % Sodium Potassium Chloride Carbon Dioxide Anion Gap BUN Creatinine Estim Creat Clear Calc eGFR BUN/Creatinine Ratio Glucose Calculated Osmolality Calcium Corrected Calcium Total Bilirubin AST ALT Alkaline Phosphatase Total Protein Albumin Globulin Albumin/Globulin Ratio Prostate Specific Ag 0.97 D Ur Random Creatinine 24 L U Random Total Protein 6 Coccidioides IgG Ab Negative 10/16/24 06:15 WBC 7.4 RBC 4.20 L Hgb 13.5 Hct 40.6 L MCV 97 MCH 32.1 MCHC 33.3 RDW Std Deviation 51.4 H Plt Count 151 Neut % (Auto) 72 Lymph % (Auto) 10 Valencia % (Auto) 9 Eos % (Auto) 8 Baso % (Auto) 0 Neut # (Auto) 5.4 Lymph # (Auto) 0.7 L Valencia # (Auto) 0.7 Eos # (Auto) 0.6 H Baso # (Auto) 0.0 Immature Gran # (Auto) 0.03 H Absolute Nucleated RBC 0.00 Immature Gran % 0 Nucleated RBC % 0 Sodium 140 Potassium 4.3 Chloride 102 Carbon Dioxide 32.0 H Anion Gap 6 L BUN 27 H Creatinine 1.1 Estim Creat Clear Calc 60.1 L eGFR > 60 BUN/Creatinine Ratio 25 H Glucose 124 H Calculated Osmolality 285 Calcium 10.4 Corrected Calcium 11.0 H Total Bilirubin 0.5 AST 28 ALT 21 Alkaline Phosphatase 247 H Total Protein 5.5 L Albumin 3.2 L Globulin 2.3 Albumin/Globulin Ratio 1.4 Prostate Specific Ag Ur Random Creatinine U Random Total Protein Coccidioides IgG Ab Quality Measures Quality Measures VTE prophylaxis Advance care planning discussed with:: patient Assessment & Plan Assessment Current Active Medications: Generic Name Dose Route Start Last Admin Trade Name Freq PRN Reason Stop Dose Admin Acetaminophen 650 mg 10/13/24 21:44 10/15/24 20:52 Acetaminophen 325 Mg Tablet PO 11/12/24 21:43 650 mg Q6H PRN Administration Fever >100.4 or Pain 1-10 Albuterol/Ipratropium 3 ml 10/13/24 21:44 10/16/24 11:40 Albuterol/Ipratropium (Duoneb) Rt Diana 3 Ml Nebu INH 11/13/24 00:59 3 ml Q6HRRT PRN Administration Shortness of breath or wheezing Apixaban 5 mg 10/15/24 21:00 10/16/24 08:54 Apixaban 2.5 Mg Tablet PO 11/14/24 20:59 5 mg BID MARCY Administration Aspirin 81 mg 10/14/24 09:00 10/16/24 08:54 Aspirin Ec 81 Mg Tabec PO 11/13/24 08:59 81 mg DAILY MARCY Administration Benzonatate 200 mg 10/15/24 09:56 Benzonatate 100 Mg Capsule PO 11/12/24 23:14 TID PRN cough Protocol Bisacodyl 10 mg 10/13/24 21:44 Bisacodyl 5 Mg Tabec PO 11/12/24 21:43 QDAY PRN CONSTIPATION Protocol Famotidine 20 mg 10/13/24 23:23 Famotidine 20 Mg Tablet PO 11/12/24 23:22 DAILY PRN GERD Finasteride 5 mg 10/15/24 09:00 10/16/24 08:55 Finasteride 5 Mg Tablet PO 11/14/24 08:59 5 mg QDAY MARCY Administration Furosemide 40 mg 10/15/24 18:00 10/16/24 06:13 Furosemide Inj 10 Mg/Ml 4ml Vial IVP 11/14/24 17:59 40 mg BIDD MARCY Administration Guaifenesin/Dextromethorphan 1 each 10/15/24 09:51 10/15/24 21:54 Guaifenesin/Dm Tablet PO 11/14/24 09:50 1 each BID PRN Administration COUGH Cefepime HCl 2 gm/ Sodium 50 mls @ 100 mls/hr 10/16/24 13:32 Chloride IV 10/23/24 13:31 Q8HR MARCY Lidocaine 1 patch 10/15/24 14:45 Lidocaine 5% 1 Patch TOP 11/14/24 14:44 DAILY PRN RIGHT SHOULDER PAIN Ondansetron HCl 4 mg 10/13/24 21:44 Ondansetron Inj 2 Mg/Ml Inj 2 Ml IV 11/12/24 21:43 Q6H PRN NAUSEA OR VOMITING Protocol Pantoprazole Sodium 40 mg 10/14/24 06:00 10/16/24 06:13 Pantoprazole 40 Mg Tablet PO 11/13/24 05:59 40 mg DAILY@0600 MARCY Administration Polyethylene Glycol 17 gm 10/15/24 12:15 10/16/24 08:54 Polyethylene Glycol 17 Gm Packet PO 11/14/24 12:14 17 gm QDAY MARCY Administration Sennosides 1 tab 10/15/24 12:15 10/16/24 08:54 Senna Tablet PO 11/14/24 12:14 1 tab QDAY MARCY Administration Protocol Plan Mr. Scott is a 84-year-old male with past medical history of afib on Eliquis, hypertension, prediabetes, and BPH who presented to the ED on 10/13/2024 with 6 weeks of cough, SOB , worsening generalized body weakness and bilateral leg swelling for the last 3 days. Patient is admitted to the hospital for acute hypoxic respiratory failure secondary to pneumonia and CHF exacerbation. # Concern for metastatic malignancy # Unknown primary location -Patient does not have a known history of cancer however father had esophageal cancer -Patient states his last colonoscopy was less than 3 years ago and no significant findings or polyps were noted -Patient recently lost 30 pounds in 2 months -CTA of chest- Extensive nodular parenchymal disease throughout both lungs, the subcentimeter bilateral nodules noted could be infectious in etiology or represent pulmonary nodular metastatic disease, clinical correlation advised and follow-up recommended post treatment for pneumonia. 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 -CT abdomen/pelvis- Poor primary hepatocellular disease, Multiple benign renal cysts, the largest upper pole right kidney 14 cm, No bowel obstruction, Significant stool in the rectum with proctitis pattern -PSA - 0.97, PTH 16, hypercalcemia on admission, vitamin D 47.3 -CEA, workup for autoimmune conditions, multiple myeloma workup ordered -Consulted GI, EGD pending -Consulted IR for Lung mass biopsy if unable then will consider biopsy of the lytic lesion of the bone #Acute hypoxic respiratory failure #Community-acquired pneumonia #Acute CHF exacerbation #Lower extremity edema -Patient has productive cough, generalized weakness, shortness of breath and lower extremity edema for several weeks -Chest x-ray: diffuse significant bilateral pneumonia, Mild associated heart failure -Venous Doppler ultrasound of lower extremities bilaterally: Negative for deep vein thrombosis -EKG: A-fib with SVR -Cocci IgM negative Plan: -Fluid restrictions 1500 -Strict ins and outs -Obtain weight daily -DuoNebs every 6 hours -Mucinex as needed -Patient is advised to keep legs elevated with a pillow under LE ?O2 support PRN -Echocardiogram was done at Dr. Grider office outpatient couple days before admission. Per Dr. Grider EF was 75% and no pericardial effusions noted. -Transportation Engineering Technician Dr. Grider consulted, appreciate recommendations -Furosemide 40 Mg IVP BID -Discontinued ceftriaxone and azithromycin -cefepime started 10/16- #Concern for PE- ruled out #Generalized weakness #Hypercalcemia -on admission Corrected calcium on labs is 12.3, patient denies any prior knowledge of hypercalcemia and cannot recall if he takes any calcium supplements -Elevated corrected calcium 12.7. On the patient's home medications list brought in by family, listed is Vitamin D3 125 mcg (5000 IU) qday. Likely secondary to Vitamin D hypervitaminosis if he is still actively taking it. Other differentials include possible malignancy, parathyroid disorders -Wells criteria for pulmonary embolism is 4.5 patient is at moderate risk group: 16.2% chance of PE in an ED population Plan: -PTH is 16 -25 hydroxy vitamin D- 47 -patient was given calcitonin 400 unit x 1 -Pamidronate 60 Mg x 1 ordered -CTA of chest- Negative for pulmonary artery emboli -Will monitor CMP #Acute Kidney Injunry?resolved Baseline Cr 1.1 Cr 1.4 on admission. Most likely prerenal in setting of decreased PO intake Plan: -monitor Daily CMP -On admission patient was given 1 L bolus fluid, will hold maintenance fluid due to patient's acute exacerbation of CHF and fluid overload state -Avoid nephrotoxins, renally dose medications #NSTEMI, type II- resolved -Patient denies chest pain -Patient has demand ischemia likely secondary to acute illness -Initial troponin 0.095 -> 0.095 -> 0.76 #History of CVA in the setting of #A-fib-rate controlled -Patient patient states he has a history of stroke without residual deficit many years ago was diagnosed with A-fib and was started on Eliquis by his licensed physical therapist assistant Dr. Grider -hold home Eliquis and aspirin as patient will be undergoing lung mass biopsy on -Hold home metoprolol XL due to soft BP #GERD-like symptoms # Dysphagia Patient complains of burning sensation whenever he eats causing poor appetite. He feels like someone is stuck in his throat -Pantoprazole 40 mg PO qday -Famotidine 20 mg PO qday prn if symptoms persist -Speech evaluation completed -Consult GI, appreciate recommendations #BPH -Resume home finasteride 5 Mg daily and tamsulosin 0.4 Mg p.o. daily Health Maintenance Disposition: telemetry for acute hypoxic respiratory failure secondary to bilateral pneumonia and CHF exacerbation DVT Prophylaxis: Patient is on home Eliquis GI Prophylaxis: Pantoprozol-40 IV Qday Diet: Cardiac Diet Lines: Peripheral lines Code status: Full Assessment and plan discussed with my senior resident Dr. Marcelo & attending physician Dr. Garett Holguin (PGY-1)- Internal medicine resident Attending Provider Attestation/Addendum Shaila Pitts, , attest that I was physically present for the rodriguez portions of the service and evaluated the patient with the resident and I reviewed and discussed the case with the resident and agree with the resident's findings and plans of care as documented above Patient seen and evaluated this AM. B/l UE and LE edema appears improved. Patient is currently on 3L/NC. Son at bedside states that the patient appears improved after receiving breathing treatments. Will schedule duonebs. There is a nodule amenable to biopsy. However, patient has been on eliquis. Will hold until for biopsy. Continue with diuresis. Case discussed with Dr. Grider at bedside, states that echo done a few days prior to presentation was WNL and EF of 70-75%.
[2024-10-16 16:11] LABS: Carcinoembryonic Antigen 2.9 ng/mL (0.0-5.0)
--- NOTE | 2024-10-16 16:14 | PC.CC ---
Updated clinicals submitted to acute rehab facilities on [facility].
[2024-10-16] MEDS: CEFEPIME INJ 2 GM in SODIUM CHLORIDE 0.9% 50 ML IV ×2 (16:29→21:14)
--- NOTE | 2024-10-16 19:50 | PC.NURSE ---
PT BACK FROM ENDO. [facility]/OX4. DAUGHTER AT BEDSIDE. WOUND CARE PROVIDED TO BILATERAL BUTTOCKS.
[2024-10-16] MEDS: BENZONATATE 100 MG CAPSULE PO (21:13)
[2024-10-16] MEDS: MELATONIN 3 MG TABLET PO (21:13)
[2024-10-16] MEDS: BALSAM PERU/CASTOR OIL (Venelex) 60 GM TUBE TOP (22:33)
[2024-10-17] VITALS (11 sets, daily range): BP systolic 100–131; BP diastolic 53–70; PULSE 76–99; RESP 18–88; TEMP 36.4–37.5; O2SAT 91–96; BMI 32.5
[2024-10-17] MEDS: bisacodyL 5 MG TABEC 10 MG PO (00:52)
[2024-10-17] MEDS: ACETAMINOPHEN 500 MG TABLET 1000 MG PO (01:15)
[2024-10-17] MEDS: ALBUTEROL/IPRATROPIUM (Duoneb) RT SOL 3 ML NEBU INH ×4 (01:20→18:15)
[2024-10-17] MEDS: CEFEPIME INJ 2 GM in SODIUM CHLORIDE 0.9% 50 ML IV ×3 (05:25→21:03)
[2024-10-17] MEDS: PANTOPRAZOLE 40 MG TABLET PO (05:28)
[2024-10-17] MEDS: FUROSEMIDE INJ 10 MG/ML 4ML VIAL 40 MG IVP (05:28)
[2024-10-17] MEDS: BENZONATATE 100 MG CAPSULE PO ×3 (05:30→21:02)
[2024-10-17 06:56] LABS: Basophils % (Auto) 0 % (0-2.5); Eosinophils # (Auto) 0.6 Thou/mm3 (0.0-0.5); Eosinophils % (Auto) 9 % (0-10); Hematocrit 39.2 % (41.0-53.0); Immature Granulocytes % (Auto) 0 % (0-0); Immature Granulocytes Auto 0.03 Thou/mm3 (0.00-0.00); Lymphocytes # (Auto) 0.7 Thou/mm3 (1.0-4.8); Lymphocytes % (Auto) 11 % (10-50); Mean Corpuscular HGB Conc 33.2 g/dl (31.0-37.0); Mean Corpuscular Hemoglobin 31.4 pg (25.0-35.0); Mean Corpuscular Volume 95 fL (80-100); Monocytes # (Auto) 0.6 Thou/mm3 (0.0-0.8); Monocytes % (Auto) 8 % (0-12); Neutrophils # (Auto) 4.8 Thou/mm3 (1.8-7.7); Neutrophils % (Auto) 72 % (37-80); Nucleated Red Blood Cell % 0 /100 WBC (0); Platelet Count 145 Thou/mm3 (140-440); RDW Standard Deviation 49.3 fL (35.1-43.9); Red Blood Count 4.14 Miln/mm3 (4.50-5.90); White Blood Count 6.8 Thou/mm3 (3.8-10.6)
[2024-10-17 07:18] LABS: Alanine Aminotransferase 21 U/L (10-49); Albumin, Serum 3.1 gm/dL (3.4-4.8); Albumin/Globulin Ratio 1.3 (1.2-2.2); Alkaline Phosphatase 234 U/L (46-116); Anion Gap 7 (7-16); Aspartate Amino Transferase 25 U/L (0-34); BUN/Creatinine Ratio 28 Ratio (12-20); Bilirubin,Total 0.5 mg/dL (0.3-1.2); Blood Urea Nitrogen 25 mg/dL (9-23); Calcium 9.5 mg/dL (8.3-10.6); Calcium (Corrected) 10.2 mg/dL (8.5-10.1); Carbon Dioxide 32.4 mMol/L (20.0-31.0); Chloride 99 mMol/L (98-107); Creatinine (Component) 0.9 mg/dL (0.6-1.3); Estimated Creatinine Clearance 72.1 mL/min (>60); Globulin 2.3 gm/dL (2.3-3.5); Glucose 118 mg/dL (74-106); Osmolality,Calculated 281 (275-295); Potassium 3.8 mMol/L (3.4-5.1); Sodium 138 mMol/L (136-145); Total Protein 5.4 gm/dL (5.7-8.2); eGFR > 60 See Note
[2024-10-17] MEDS: FINASTERIDE 5 MG TABLET PO (08:18)
[2024-10-17] MEDS: BALSAM PERU/CASTOR OIL (Venelex) 60 GM TUBE TOP ×2 (08:18→21:03)
[2024-10-17] MEDS: POLYETHYLENE GLYCOL 17 GM PACKET PO (08:18)
[2024-10-17] MEDS: SENNA TABLET 1 TAB PO (08:18)
--- NOTE | 2024-10-17 09:09 | ESPR_ITS ---
RE: ANGELICA SEVILLA : 1940 DATE OF SERVICE: 10/17/2024 SUBJECTIVE: Mr. Sevilla is resting fairly comfortably in bed this morning. The patient is breathing fair, though is still requiring oxygen by nasal cannula at 2 liters per minute. The patient is not having any symptoms of chest pain. Denies any complaints of skipped beats or palpitations. OBJECTIVE: Vital Signs: Blood pressure today is 121/70, pulse rate is 86 per minute and irregularly irregular, respiratory rate is 25, temperature is 97.6, oximetry saturation is 93%. Heart: Clear. Lungs: Show few bilateral basal rhonchi. Extremities: Trace pedal edema is noted. LABORATORY DATA: Lab work today shows WBC count of 6,800, hemoglobin 13 g with hematocrit of 30.2. The patient's BUN today is 25, creatinine 0.9, potassium level is 3.8. The heart rhythm is staying in atrial fibrillation with moderate ventricular response. PLAN: To continue the patient on all present medications, IV antibiotic therapy and general supportive care. Cardiac status at the present time is stable and we will follow the patient on a p.r.n. basis for cardiac problems. DT: 08:43:08 TT: 09:08:00 Ref: [id number] - TID: [id number]
[2024-10-17] MEDS: GLYCERIN, ADULT 1 EA SUPP 1 EACH PR (11:45)
--- NOTE | 2024-10-17 13:47 | PC.SS ---
Update: EGD results are pending. Plan is to conduct biopsy tomorrow.
--- NOTE | 2024-10-17 17:11 | PD.RESPRO ---
Documentation for date of: 10/17/24 Subjective Subjective Interval history: 10/17: No acute overnight events patient is seen and examined at bedside this morning patient is saying he is a bit uncomfortable because of constipation and he has not had a bowel movement in 2 days. Patient underwent EGD last night and findings were consistent with proximal esophageal stricture. Patient is saturating at 94% on 3 L of oxygen patient feels much better will decrease Lasix to daily. Patient's family is at bedside and confirmed patient's last colonoscopy was more than 8 years ago although patient might of confused state timeline. Patient will undergo lung biopsy tomorrow. patient has no other complaints. Exam Vital Signs Temp Pulse Resp BP Pulse Ox O2 Del Method O2 Flow Rate 98.2 F 86 26 H 131/62 H 96 Nasal Cannula 3 10/17/24 12:00 10/17/24 12:23 10/17/24 12:23 10/17/24 12:00 10/17/24 12:23 10/17/24 12:00 10/17/24 12:23 Narrative Exam GENERAL: A&Ox3 . Awake, Not in acute distress NEURO: no focal neurological deficits HEENT: Atraumatic, Normocephalic. mucous membranes moist. Eyes open, symmetrical, & clear HEART: Normal Heart Sounds LUNGS: Clear breath sounds bilaterally ABDOMEN: soft, non-distended, non-tender, bowel sounds heard, no guarding or rebound tenderness SKIN: No Rash or ecchymoses, decubitus ulcer on buttocks EXTREMITIES:no pitting edema extending to knees bilaterally, no tenderness Objective Labs 10/18/24 04:34 10/18/24 04:34 Labs: Laboratory Results - last 24 hr 10/17/24 06:24 WBC 6.8 RBC 4.14 L Hgb 13.0 L Hct 39.2 L MCV 95 MCH 31.4 MCHC 33.2 RDW Std Deviation 49.3 H Plt Count 145 Neut % (Auto) 72 Lymph % (Auto) 11 [place] % (Auto) 8 Eos % (Auto) 9 Baso % (Auto) 0 Neut # (Auto) 4.8 Lymph # (Auto) 0.7 L [place] # (Auto) 0.6 Eos # (Auto) 0.6 H Baso # (Auto) 0.0 Immature Gran # (Auto) 0.03 H Absolute Nucleated RBC 0.00 Immature Gran % 0 Nucleated RBC % 0 Sodium 138 Potassium 3.8 D Chloride 99 Carbon Dioxide 32.4 H Anion Gap 7 BUN 25 H Creatinine 0.9 Estim Creat Clear Calc 72.1 eGFR > 60 BUN/Creatinine Ratio 28 H Glucose 118 H Calculated Osmolality 281 Calcium 9.5 Corrected Calcium 10.2 H Total Bilirubin 0.5 AST 25 ALT 21 Alkaline Phosphatase 234 H Total Protein 5.4 L Albumin 3.1 L Globulin 2.3 Albumin/Globulin Ratio 1.3 Quality Measures Quality Measures VTE prophylaxis Advance care planning discussed with:: patient Assessment & Plan Assessment Current Active Medications: Generic Name Dose Route Start Last Admin Trade Name Freq PRN Reason Stop Dose Admin Acetaminophen 650 mg 10/13/24 21:44 10/15/24 20:52 Acetaminophen 325 Mg Tablet PO 11/12/24 21:43 650 mg Q6H PRN Administration Fever >100.4 or Pain 1-10 Albuterol/Ipratropium 3 ml 10/16/24 19:00 10/17/24 12:21 Albuterol/Ipratropium (Duoneb) Rt Diana 3 Ml Nebu INH 11/15/24 18:59 3 ml Q6HRRT MARCY Administration Apixaban 5 mg 10/15/24 21:00 10/16/24 08:54 Apixaban 2.5 Mg Tablet PO 11/14/24 20:59 5 mg BID MARCY Administration Aspirin 81 mg 10/14/24 09:00 10/16/24 08:54 Aspirin Ec 81 Mg Tabec PO 11/13/24 08:59 81 mg DAILY MARCY Administration Balsam Magda/Howes Oil 0 gm 10/16/24 21:00 10/17/24 08:18 Balsam [place]/Howes Oil (Venelex) 60 Gm Tube TOP 11/15/24 20:59 1 applicatio BID MARCY Administration Benzonatate 100 mg 10/16/24 22:00 10/17/24 13:09 Benzonatate 100 Mg Capsule PO 11/15/24 21:59 100 mg TID MARCY Administration Protocol Bisacodyl 10 mg 10/13/24 21:44 10/17/24 00:52 Bisacodyl 5 Mg Tabec PO 11/12/24 21:43 10 mg QDAY PRN Administration CONSTIPATION Protocol Famotidine 20 mg 10/13/24 23:23 Famotidine 20 Mg Tablet PO 11/12/24 23:22 DAILY PRN GERD Finasteride 5 mg 10/15/24 09:00 10/17/24 08:18 Finasteride 5 Mg Tablet PO 11/14/24 08:59 5 mg QDAY MARCY Administration Furosemide 40 mg 10/18/24 09:00 Furosemide Inj 10 Mg/Ml 4ml Vial IVP 11/17/24 08:59 QDAY MARCY Guaifenesin/Dextromethorphan 1 each 10/15/24 09:51 10/15/24 21:54 Guaifenesin/Dm Tablet PO 11/14/24 09:50 1 each BID PRN Administration COUGH Cefepime HCl 2 gm/ Sodium 50 mls @ 100 mls/hr 10/16/24 14:30 10/17/24 13:23 Chloride IV 10/23/24 13:31 100 mls/hr Q8HR MARCY Administration Lidocaine 1 patch 10/15/24 14:45 Lidocaine 5% 1 Patch TOP 11/14/24 14:44 DAILY PRN RIGHT SHOULDER PAIN Melatonin 3 mg 10/16/24 21:00 10/16/24 21:13 Melatonin 3 Mg Tablet PO 11/15/24 20:59 3 mg HS MARCY Administration Ondansetron HCl 4 mg 10/13/24 21:44 Ondansetron Inj 2 Mg/Ml Inj 2 Ml IV 11/12/24 21:43 Q6H PRN NAUSEA OR VOMITING Protocol Pantoprazole Sodium 40 mg 10/17/24 21:00 Pantoprazole Inj 40 Mg Vial IV 11/16/24 20:59 BID MARCY Polyethylene Glycol 17 gm 10/15/24 12:15 10/17/24 08:18 Polyethylene Glycol 17 Gm Packet PO 11/14/24 12:14 17 gm QDAY MARCY Administration Sennosides 1 tab 10/15/24 12:15 10/17/24 08:18 Senna Tablet PO 11/14/24 12:14 1 tab QDAY MARCY Administration Protocol Plan Mr. Scott is a 84-year-old male with past medical history of afib on Eliquis, hypertension, prediabetes, and BPH who presented to the ED on 10/13/2024 with 6 weeks of cough, SOB , worsening generalized body weakness and bilateral leg swelling for the last 3 days. Patient is admitted to the hospital for acute hypoxic respiratory failure secondary to pneumonia and CHF exacerbation. # Concern for metastatic malignancy # Unknown primary location -Patient does not have a known history of cancer however father had esophageal cancer -Patient states his last colonoscopy was less than 3 years ago and no significant findings or polyps were noted -Patient recently lost 30 pounds in 2 months -CTA of chest- Extensive nodular parenchymal disease throughout both lungs, the subcentimeter bilateral nodules noted could be infectious in etiology or represent pulmonary nodular metastatic disease, clinical correlation advised and follow-up recommended post treatment for pneumonia. 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 -CT abdomen/pelvis- Poor primary hepatocellular disease, Multiple benign renal cysts, the largest upper pole right kidney 14 cm, No bowel obstruction, Significant stool in the rectum with proctitis pattern -PSA - 0.97, PTH 16, hypercalcemia on admission, vitamin D 47.3 -CEA, workup for autoimmune conditions, multiple myeloma workup ordered -Consulted GI, EGD pending -Consulted IR for Lung mass biopsy scheduled for tomorrow -N.p.o. after midnight, PT with INR ordered #Acute hypoxic respiratory failure #Community-acquired pneumonia #Acute CHF exacerbation #Lower extremity edema -Patient has productive cough, generalized weakness, shortness of breath and lower extremity edema for several weeks -Chest x-ray: diffuse significant bilateral pneumonia, Mild associated heart failure -Venous Doppler ultrasound of lower extremities bilaterally: Negative for deep vein thrombosis -EKG: A-fib with SVR -Cocci IgM negative Plan: -Fluid restrictions 1500 -Strict ins and outs -Obtain weight daily -DuoNebs every 6 hours -Mucinex as needed -Patient is advised to keep legs elevated with a pillow under LE ?O2 support PRN -Echocardiogram was done at Dr. Grider office outpatient couple days before admission. Per Dr. Grider EF was 75% and no pericardial effusions noted. -Dumper Bailer Operator Dr. Grider consulted, appreciate recommendations -Furosemide 40 Mg IVP BID -Discontinued ceftriaxone and azithromycin -Sputum cultures are positive for Serratia marcescens and E. coli -cefepime started 10/16- #Concern for PE- ruled out #Generalized weakness #Hypercalcemia- resolved -on admission Corrected calcium on labs is 12.3, patient denies any prior knowledge of hypercalcemia and cannot recall if he takes any calcium supplements -Elevated corrected calcium 12.7. On the patient's home medications list brought in by family, listed is Vitamin D3 125 mcg (5000 IU) qday. Likely secondary to Vitamin D hypervitaminosis if he is still actively taking it. Other differentials include possible malignancy, parathyroid disorders -Wells criteria for pulmonary embolism is 4.5 patient is at moderate risk group: 16.2% chance of PE in an ED population Plan: -PTH is 16 -25 hydroxy vitamin D- 47 -patient was given calcitonin 400 unit x 1 -Pamidronate 60 Mg x 1 ordered -CTA of chest- Negative for pulmonary artery emboli -Will monitor CMP #Acute Kidney Injunry?resolved Baseline Cr 1.1 Cr 1.4 on admission. Most likely prerenal in setting of decreased PO intake Plan: -monitor Daily CMP -On admission patient was given 1 L bolus fluid, will hold maintenance fluid due to patient's acute exacerbation of CHF and fluid overload state -Avoid nephrotoxins, renally dose medications #NSTEMI, type II- resolved -Patient denies chest pain -Patient has demand ischemia likely secondary to acute illness -Initial troponin 0.095 -> 0.095 -> 0.76 #History of CVA in the setting of #A-fib-rate controlled -Patient patient states he has a history of stroke without residual deficit many years ago was diagnosed with A-fib and was started on Eliquis by his curtain stitcher Dr. Grider -hold home Eliquis and aspirin as patient will be undergoing lung mass biopsy on -Hold home metoprolol XL due to soft BP #GERD-like symptoms # Dysphagia Patient complains of burning sensation whenever he eats causing poor appetite. He feels like someone is stuck in his throat -Pantoprazole 40 mg PO qday -Famotidine 20 mg PO qday prn if symptoms persist -Speech evaluation completed -Consult GI, appreciate recommendations -EGD done findings are consistent with esophageal stricture, esophagitis, gastritis #BPH -Resume home finasteride 5 Mg daily and tamsulosin 0.4 Mg p.o. daily Health Maintenance Disposition: telemetry for acute hypoxic respiratory failure secondary to bilateral pneumonia and CHF exacerbation DVT Prophylaxis: Patient is on home Eliquis GI Prophylaxis: Pantoprozol-40 IV Qday Diet: Cardiac Diet Lines: Peripheral lines Code status: Full Assessment and plan discussed with my attending physician Dr. Garett Holguin (PGY-1)- Internal medicine resident Attending Provider Attestation/Addendum Shaila Pitts DO, attest that I was physically present for the rodriguez portions of the service and evaluated the patient with the resident and I reviewed and discussed the case with the resident and agree with the resident's findings and plans of care as documented above Patient seen eval this a.m. Son was at bedside. Discussed finding of nodule in right lung periphery amenable to biopsy. Eliquis has been held in anticipation of biopsy of nodule. Will place patient n.p.o. after midnight. Risks of pneumothorax and bleeding were discussed with patient and son with which they verbalized understanding. Spoke to cardiology at bedside as well, patient is stable from cardiac standpoint. Will decrease Lasix dose to once daily as patient appears to be dehydrated. Continue with cefepime which is sensitive to both E. coli and Serratia noted in sputum culture. Patient otherwise afebrile and hemodynamically stable.
[2024-10-17] MEDS: MELATONIN 3 MG TABLET PO (21:02)
[2024-10-17] MEDS: PANTOPRAZOLE INJ 40 MG VIAL IV (21:02)
--- NOTE | 2024-10-17 21:46 | ESPR_ITS ---
Documentation for date of: 10/17/24 Subjective Subjective Interval history: Patient evaluated Dysphagia has improved after endoscopic dilatation Exam Vital Signs Temp Pulse Resp BP Pulse Ox O2 Del Method O2 Flow Rate 99.5 F 99 30 H 122/53 L 91 L Nasal Cannula 3 10/17/24 20:00 10/17/24 20:00 10/17/24 20:00 10/17/24 20:00 10/17/24 20:00 10/17/24 20:00 10/17/24 20:00 Constitutional Comments: Alert oriented Routine Respiratory Exam Comments: Normal to auscultation Routine Abdominal Exam Comments: Soft nontender Objective Labs 10/17/24 06:24 10/17/24 06:24 Labs: Laboratory Results - last 24 hr 10/17/24 06:24 WBC 6.8 RBC 4.14 L Hgb 13.0 L Hct 39.2 L MCV 95 MCH 31.4 MCHC 33.2 RDW Std Deviation 49.3 H Plt Count 145 Neut % (Auto) 72 Lymph % (Auto) 11 [place] % (Auto) 8 Eos % (Auto) 9 Baso % (Auto) 0 Neut # (Auto) 4.8 Lymph # (Auto) 0.7 L [place] # (Auto) 0.6 Eos # (Auto) 0.6 H Baso # (Auto) 0.0 Immature Gran # (Auto) 0.03 H Absolute Nucleated RBC 0.00 Immature Gran % 0 Nucleated RBC % 0 Sodium 138 Potassium 3.8 D Chloride 99 Carbon Dioxide 32.4 H Anion Gap 7 BUN 25 H Creatinine 0.9 Estim Creat Clear Calc 72.1 eGFR > 60 BUN/Creatinine Ratio 28 H Glucose 118 H Calculated Osmolality 281 Calcium 9.5 Corrected Calcium 10.2 H Total Bilirubin 0.5 AST 25 ALT 21 Alkaline Phosphatase 234 H Total Protein 5.4 L Albumin 3.1 L Globulin 2.3 Albumin/Globulin Ratio 1.3 Impressions Impression: # Proximal esophageal stricture status post guidewire endoscopic dilatation # gastritis # Esophagitis continue present treatment Assessment & Plan A&P Narrative # Dysphagia # Abnormal weight loss Plan tentatively scheduled for fiberoptic esophagogastroduodenoscopy with possible biopsy possible Therapeutic intervention under intravenous moderate sedation of course it all depends upon his respiratory status in the FiO2 of the oxygen Other medical problems include # Atrial fibrillation on Eliquis # Essential hypertension # Diabetes mellitus type 2 # BPH Thank you very much for the opportunity to participate in the care of this patient Time Spent With Patient Time: Total time spent is greater than 50% in coordination of care (as documented) at patient's floor/unit and/or counseling patient:
[2024-10-18] VITALS (16 sets, daily range): BP systolic 89–144; BP diastolic 56–81; PULSE 76–98; RESP 18–29; TEMP 36.2–37.4; O2SAT 90–98; BMI 33.4
[2024-10-18] MEDS: ALBUTEROL/IPRATROPIUM (Duoneb) RT SOL 3 ML NEBU INH ×3 (01:50→18:00)
[2024-10-18] MEDS: CEFEPIME INJ 2 GM in SODIUM CHLORIDE 0.9% 50 ML IV ×3 (05:29→21:20)
[2024-10-18 05:50] LABS: Basophils # (Auto) 0.1 Thou/mm3 (0.0-0.2); Basophils % (Auto) 1 % (0-2.5); Eosinophils # (Auto) 0.5 Thou/mm3 (0.0-0.5); Eosinophils % (Auto) 7 % (0-10); Hematocrit 38.3 % (41.0-53.0); Hemoglobin 12.8 g/dL (13.5-16.0); Immature Granulocytes % (Auto) 0 % (0-0); Immature Granulocytes Auto 0.02 Thou/mm3 (0.00-0.00); Lymphocytes # (Auto) 0.6 Thou/mm3 (1.0-4.8); Lymphocytes % (Auto) 9 % (10-50); Mean Corpuscular HGB Conc 33.4 g/dl (31.0-37.0); Mean Corpuscular Hemoglobin 31.7 pg (25.0-35.0); Mean Corpuscular Volume 95 fL (80-100); Monocytes # (Auto) 0.7 Thou/mm3 (0.0-0.8); Monocytes % (Auto) 11 % (0-12); Neutrophils % (Auto) 72 % (37-80); Nucleated Red Blood Cell % 0 /100 WBC (0); Platelet Count 164 Thou/mm3 (140-440); RDW Standard Deviation 49.3 fL (35.1-43.9); Red Blood Count 4.04 Miln/mm3 (4.50-5.90); White Blood Count 6.9 Thou/mm3 (3.8-10.6)
[2024-10-18 06:05] LABS: INR 1.2 (0.9-1.3); Partial Thromboplastin Time 27.8 Seconds (22.0-36.0); Prothrombin Time 12.7 Seconds (9.0-12.2)
[2024-10-18 06:19] LABS: Alanine Aminotransferase 22 U/L (10-49); Albumin, Serum 2.8 gm/dL (3.4-4.8); Albumin/Globulin Ratio 1.2 (1.2-2.2); Alkaline Phosphatase 223 U/L (46-116); Anion Gap 6 (7-16); Aspartate Amino Transferase 23 U/L (0-34); BUN/Creatinine Ratio 31 Ratio (12-20); Bilirubin,Total 0.5 mg/dL (0.3-1.2); Blood Urea Nitrogen 28 mg/dL (9-23); Calcium 8.9 mg/dL (8.3-10.6); Calcium (Corrected) 9.9 mg/dL (8.5-10.1); Carbon Dioxide 31.2 mMol/L (20.0-31.0); Chloride 98 mMol/L (98-107); Creatinine (Component) 0.9 mg/dL (0.6-1.3); Estimated Creatinine Clearance 73.2 mL/min (>60); Globulin 2.4 gm/dL (2.3-3.5); Glucose 125 mg/dL (74-106); Magnesium 1.5 mg/dL (1.6-2.6); Osmolality,Calculated 276 (275-295); Phosphorous 1.9 mg/dL (2.4-5.1); Potassium 4.2 mMol/L (3.4-5.1); Sodium 135 mMol/L (136-145); Total Protein 5.2 gm/dL (5.7-8.2); eGFR > 60 See Note
[2024-10-18] MEDS: Magnesium Sulfate 4 GM Ivpb 4 GM/50 ML BAG IV (07:56)
--- NOTE | 2024-10-18 08:00 | XR_ITS ---
Examination: CT-guided percutaneous biopsy right upper lobe pulmonary nodule CT chest without intravenous contrast Date and time of procedure: October 18, 2024 1114 hours INDICATIONS: Hypoxia this week, numerous metastatic pulmonary nodules throughout the lungs on CT chest study October 15, 2024 Informed consent provided. A timeout was completed verifying correct patient, procedure, site and positioning. Technique: Axial 3 mm sections were obtained for localization of a right upper lobe pulmonary nodule Appropriate area is marked. The patient's site was prepped and draped in sterile fashion Maximal sterile barrier technique utilized, including hand hygiene Local anesthesia was obtained with 1% lidocaine. Low dose protocols were performed. One or more of the following dose reduction techniques were used; automated exposure control, adjustment of the mA and/or KV according to patient size, use of iterative reconstruction technique. Utilizing CT fluoroscopic guidance 2 core biopsies obtained of the pulmonary nodule right upper lobe . Patient appears in stable condition during this procedure. At completion of the procedure, the patient is in satisfactory condition. Estimated blood loss 0 cc Complete pathology report to follow. Impression: Successful CT-guided percutaneous biopsy pulmonary nodule right upper lobe Preliminary pathology report is malignant cells
[2024-10-18] MEDS: PANTOPRAZOLE INJ 40 MG VIAL IV ×2 (08:40→21:17)
[2024-10-18] MEDS: FINASTERIDE 5 MG TABLET PO (08:41)
[2024-10-18] MEDS: FUROSEMIDE INJ 10 MG/ML 4ML VIAL 40 MG IVP ×2 (08:41→21:19)
--- NOTE | 2024-10-18 09:51 | XR_ITS ---
Examination: AP chest single view Technique one AP portable upright chest single view Exam date and time: October 18 2024 1005 hours Comparison October 16, 2024 INDICATIONS: Worsening hypoxia shortness of breath this week. FINDINGS: Severe bilateral nodular opacities throughout the lungs Mild enlargement cardiac contour Prominent vascular congestion IMPRESSION: Extensive bilateral nodular opacities throughout the lungs consistent with pulmonary nodular metastatic disease and pneumonia Mild associated heart failure
--- NOTE | 2024-10-18 10:30 | XR_ITS ---
Examination: Ultrasound hemithoraces TECHNIQUE: Grayscale sonographic images right and left hemithoraces Exam date and time: October 18, 2024 1302 hours INDICATIONS: Pleural effusions on chest x-ray today shortness of breath this week FINDINGS: Small bilateral pleural effusions IMPRESSION: Small bilateral pleural effusions
[2024-10-18] MEDS: fentaNYL CIT INJ 50 mCg/ML AMP 2ML 25 MCG IVP (11:36)
--- NOTE | 2024-10-18 11:54 | XR_ITS ---
Examination: AP chest single view Technique one AP semiupright portable chest single view Exam date and time: October 18, 2024 1219 hours INDICATIONS: Post lung biopsy today. FINDINGS: Nodular opacities throughout the lungs No pneumothorax Mild enlargement cardiac contour IMPRESSION: No pneumothorax post lung biopsy today
--- NOTE | 2024-10-18 13:10 | PC.SS ---
Update: Patient participating with biopsy today.
--- NOTE | 2024-10-18 13:30 | XR_ITS ---
Examination: AP chest single view TECHNIQUE: A Boogie upright chest single view Exam date and time: October 18, 2024 1351 hours INDICATIONS: Post lung biopsy today. FINDINGS: Nodular pattern throughout the lungs No pneumothorax Mild enlargement cardiac contour IMPRESSION: No pneumothorax post lung biopsy today
--- NOTE | 2024-10-18 13:37 | PC.SS ---
[facility] quality liaison is Vignesh .
[2024-10-18] MEDS: BENZONATATE 100 MG CAPSULE PO ×2 (14:36→21:16)
[2024-10-18] MEDS: BALSAM PERU/CASTOR OIL (Venelex) 60 GM TUBE TOP ×2 (14:46→21:20)
[2024-10-18 15:25] LABS: LDH (Lactate Dehydrogenase) 291 U/L (120-246)
--- NOTE | 2024-10-18 15:38 | PC.SS ---
Updated clinicals submitted to [facility] via [facility]. Patient currently on 5L nasal cannula. [facility] staff, Vignesh ; confirmed patient needs to be on 3L of oxygen for placement.
--- NOTE | 2024-10-18 18:40 | ESPR_ITS ---
Documentation for date of: 10/18/24 Senior resident attestation: Patient is a 89-year-old male with past medical history of atrial fibrillation Eliquis, hypertension, prediabetes, BPH, patient was admitted for acute hypoxic respiratory failure secondary pneumonia and CHF exacerbation. Chest imaging shows diffuse infiltrates bilaterally, concern for bilateral pneumonia versus possible metastatic disease, initial workup shows ulcerated lesion thoracic spine, further imaging unable to show primary malignancy, PSA levels were normal, patient has reported dysphagia and sticking sensation of food in esophagus, GI was consulted for possible EGD and biopsy. #Bilateral pneumonia?cocci negative, sputum culture positive for gram-negative rods, antibiotics ceftriaxone and azithromycin discontinued, started on cefepime 10/16/2024, Sputum culture produced Serratia marcescens and E. coli, sensitive to cefepime, negative blood cultures to date. Also possible metastatic disease, unknown primary. #Acute hypoxic respiratory failure?currently on 4 to 5 L oxygen via nasal cannula. # Metastatic disease?CT-guided lung biopsy was done on 10/18/2024 of right upper lobe pulmonary nodule, spoke to pathologist Dr. Yao preliminary pathology report is positive for malignant cells,unable to determine primary malignancy, final report to follow after special stains, likely metastatic disease as patient has osteolytic lesion in thoracic spine and numerous pulmonary nodules. Ultrasound-guided Thora centesis was ordered, but showed small bilateral pleural effusions. #Dysphagia?s/p endoscopic dilation of proximal esophageal stricture, improvement in swallowing following procedure. #CHF exacerbation?senior project leader/team lead Dr. Grider is consulted following the patient recommended IV diuresis and antibiotics. #Pulm embolism ruled out?of note patient was inadequately anticoagulated on Eliquis 2.5, does not meet criteria for low-dose Eliquis, started on full dose anticoagulation Eliquis 5 mg twice daily. #Acute kidney injury resolved #NSTEMI type II #Rate controlled A-fib Patient evaluated and examined at the bedside, plan of care discussed with rest of the team including my attending physician, except as noted. Quresh PGY2 Subjective Subjective Interval history: 10/18: No acute overnight events. Patient seen and examined at bedside this morning. Currently patient is saturating at 92% on 5 L of oxygen patient denies feeling short of breath. Patient states he had small bowel movements but feels excruciating amount of pain for a minute or 2 when he is passing stool. Patient is seen again in the afternoon after lung biopsy procedure, patient denies any chest pain or shortness of breath he is asking if he can now eat since he was n.p.o. for the biopsy. Patient's 3 daughters are at bedside and patient is informed that the preliminary report by the pathologist states malignant cells are noted. Patient is informed the final report will be out tomorrow and will likely give us direction of primary source of the cancer. Patient has no other complaints. Exam Vital Signs Temp Pulse Resp BP Pulse Ox O2 Del Method O2 Flow Rate 97.2 F 76 23 H 127/65 93 L Nasal Cannula 5 10/18/24 16:00 10/18/24 16:00 10/18/24 16:00 10/18/24 16:00 10/18/24 16:00 10/18/24 16:00 10/18/24 16:00 Narrative Exam GENERAL: A&Ox3 . Awake, Not in acute distress NEURO: no focal neurological deficits HEENT: Atraumatic, Normocephalic. mucous membranes moist. Eyes open, symmetrical, & clear HEART: Normal Heart Sounds LUNGS: Clear breath sounds bilaterally ABDOMEN: soft, non-distended, non-tender, bowel sounds heard, no guarding or rebound tenderness SKIN: No Rash or ecchymoses, decubitus ulcer on buttocks EXTREMITIES:no pitting edema extending to knees bilaterally, no tenderness Objective Labs 10/19/24 06:06 10/19/24 06:06 Labs: Laboratory Results - last 24 hr 10/18/24 10/18/24 04:34 14:00 WBC 6.9 RBC 4.04 L Hgb 12.8 L Hct 38.3 L MCV 95 MCH 31.7 MCHC 33.4 RDW Std Deviation 49.3 H Plt Count 164 Neut % (Auto) 72 Lymph % (Auto) 9 L [place] % (Auto) 11 Eos % (Auto) 7 Baso % (Auto) 1 Neut # (Auto) 5.0 Lymph # (Auto) 0.6 L [place] # (Auto) 0.7 Eos # (Auto) 0.5 Baso # (Auto) 0.1 Immature Gran # (Auto) 0.02 H Absolute Nucleated RBC 0.00 Immature Gran % 0 Nucleated RBC % 0 PT 12.7 H INR 1.2 APTT 27.8 Sodium 135 L Potassium 4.2 Chloride 98 Carbon Dioxide 31.2 H Anion Gap 6 L BUN 28 H Creatinine 0.9 Estim Creat Clear Calc 73.2 eGFR > 60 BUN/Creatinine Ratio 31 H Glucose 125 H Calculated Osmolality 276 Calcium 8.9 Corrected Calcium 9.9 Phosphorus 1.9 L Magnesium 1.5 L Total Bilirubin 0.5 AST 23 ALT 22 Alkaline Phosphatase 223 H Lactate Dehydrogenase 291 H Total Protein 5.2 L Albumin 2.8 L Globulin 2.4 Albumin/Globulin Ratio 1.2 Quality Measures Quality Measures VTE prophylaxis Advance care planning discussed with:: patient Assessment & Plan Assessment Current Active Medications: Generic Name Dose Route Start Last Admin Trade Name Freq PRN Reason Stop Dose Admin Acetaminophen 650 mg 10/13/24 21:44 10/15/24 20:52 Acetaminophen 325 Mg Tablet PO 11/12/24 21:43 650 mg Q6H PRN Administration Fever >100.4 or Pain 1-10 Albuterol/Ipratropium 3 ml 10/16/24 19:00 10/18/24 12:11 Albuterol/Ipratropium (Duoneb) Rt Diana 3 Ml Nebu INH 11/15/24 18:59 Not Given Q6HRRT MARCY Apixaban 5 mg 10/15/24 21:00 10/16/24 08:54 Apixaban 2.5 Mg Tablet PO 11/14/24 20:59 5 mg BID MARCY Administration Aspirin 81 mg 10/14/24 09:00 10/16/24 08:54 Aspirin Ec 81 Mg Tabec PO 11/13/24 08:59 81 mg DAILY MARCY Administration Balsam Magda/[place] Oil 0 gm 10/16/24 21:00 10/18/24 14:46 Balsam [place] Oil (Venelex) 60 Gm Tube TOP 11/15/24 20:59 1 applicatio BID MARCY Administration Benzonatate 100 mg 10/16/24 22:00 10/18/24 14:36 Benzonatate 100 Mg Capsule PO 11/15/24 21:59 100 mg TID MARCY Administration Protocol Bisacodyl 10 mg 10/13/24 21:44 10/17/24 00:52 Bisacodyl 5 Mg Tabec PO 11/12/24 21:43 10 mg QDAY PRN Administration CONSTIPATION Protocol Famotidine 20 mg 10/13/24 23:23 Famotidine 20 Mg Tablet PO 11/12/24 23:22 DAILY PRN GERD Finasteride 5 mg 10/15/24 09:00 10/18/24 08:41 Finasteride 5 Mg Tablet PO 11/14/24 08:59 5 mg QDAY MARCY Administration Furosemide 40 mg 10/18/24 21:00 Furosemide Inj 10 Mg/Ml 4ml Vial IVP 11/17/24 20:59 BID MARCY Guaifenesin/Dextromethorphan 1 each 10/15/24 09:51 10/15/24 21:54 Guaifenesin/Dm Tablet PO 11/14/24 09:50 1 each BID PRN Administration COUGH Cefepime HCl 2 gm/ Sodium 50 mls @ 100 mls/hr 10/16/24 14:30 10/18/24 14:36 Chloride IV 10/23/24 13:31 100 mls/hr Q8HR MARCY Administration Lidocaine 1 patch 10/15/24 14:45 Lidocaine 5% 1 Patch TOP 11/14/24 14:44 DAILY PRN RIGHT SHOULDER PAIN Melatonin 3 mg 10/16/24 21:00 10/17/24 21:02 Melatonin 3 Mg Tablet PO 11/15/24 20:59 3 mg HS MARCY Administration Ondansetron HCl 4 mg 10/13/24 21:44 Ondansetron Inj 2 Mg/Ml Inj 2 Ml IV 11/12/24 21:43 Q6H PRN NAUSEA OR VOMITING Protocol Pantoprazole Sodium 40 mg 10/17/24 21:00 10/18/24 08:40 Pantoprazole Inj 40 Mg Vial IV 11/16/24 20:59 40 mg BID MARCY Administration Polyethylene Glycol 17 gm 10/15/24 12:15 10/18/24 15:17 Polyethylene Glycol 17 Gm Packet PO 11/14/24 12:14 Not Given QDAY MARCY Sennosides 1 tab 10/15/24 12:15 10/18/24 15:17 Senna Tablet PO 11/14/24 12:14 Not Given QDAY MARCY Protocol Plan Mr. Scott is a 84-year-old male with past medical history of afib on Eliquis, hypertension, prediabetes, and BPH who presented to the ED on 10/13/2024 with 6 weeks of cough, SOB , worsening generalized body weakness and bilateral leg swelling for the last 3 days. Patient is admitted to the hospital for acute hypoxic respiratory failure secondary to pneumonia and CHF exacerbation. # Concern for metastatic malignancy # Unknown primary location -Patient does not have a known history of cancer however father had esophageal cancer -Patient states his last colonoscopy was less than 3 years ago and no significant findings or polyps were noted -Patient recently lost 30 pounds in 2 months -CTA of chest- Extensive nodular parenchymal disease throughout both lungs, the subcentimeter bilateral nodules noted could be infectious in etiology or represent pulmonary nodular metastatic disease, clinical correlation advised and follow-up recommended post treatment for pneumonia. 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 -CT abdomen/pelvis- Poor primary hepatocellular disease, Multiple benign renal cysts, the largest upper pole right kidney 14 cm, No bowel obstruction, Significant stool in the rectum with proctitis pattern -PSA - 0.97, PTH 16, hypercalcemia on admission, vitamin D 47.3 -CEA 2.9 -workup for autoimmune conditions, multiple myeloma workup ordered -Consulted GI, patient underwent esophageal dilation for esophageal strictures found in EGD -s/p lung biopsy - final results pending #Acute hypoxic respiratory failure #Community-acquired pneumonia #Acute CHF exacerbation #Lower extremity edema -Patient has productive cough, generalized weakness, shortness of breath and lower extremity edema for several weeks -Chest x-ray: diffuse significant bilateral pneumonia, Mild associated heart failure -Venous Doppler ultrasound of lower extremities bilaterally: Negative for deep vein thrombosis -EKG: A-fib with SVR -Cocci IgM negative Plan: -Fluid restrictions 1500 -Strict ins and outs -Obtain weight daily -DuoNebs every 6 hours -Mucinex as needed -Patient is advised to keep legs elevated with a pillow under LE ?O2 support PRN -Echocardiogram was done at Dr. Grider office outpatient couple days before admission. Per Dr. Grider EF was 75% and no pericardial effusions noted. -Brim Stretching Machine Operator Dr. Grider consulted, appreciate recommendations -Furosemide 40 Mg IVP BID -Discontinued ceftriaxone and azithromycin -Sputum cultures are positive for Serratia marcescens and E. coli -cefepime started 10/16- #Concern for PE- ruled out #Generalized weakness #Hypercalcemia- resolved -on admission Corrected calcium on labs is 12.3, patient denies any prior knowledge of hypercalcemia and cannot recall if he takes any calcium supplements -Elevated corrected calcium 12.7. On the patient's home medications list brought in by family, listed is Vitamin D3 125 mcg (5000 IU) qday. Likely secondary to Vitamin D hypervitaminosis if he is still actively taking it. Other differentials include possible malignancy, parathyroid disorders -Wells criteria for pulmonary embolism is 4.5 patient is at moderate risk group: 16.2% chance of PE in an ED population Plan: -PTH is 16 -25 hydroxy vitamin D- 47 -patient was given calcitonin 400 unit x 1 -Pamidronate 60 Mg x 1 ordered -CTA of chest- Negative for pulmonary artery emboli -Will monitor CMP #Acute Kidney Injunry?resolved Baseline Cr 1.1 Cr 1.4 on admission. Most likely prerenal in setting of decreased PO intake Plan: -monitor Daily CMP -On admission patient was given 1 L bolus fluid, will hold maintenance fluid due to patient's acute exacerbation of CHF and fluid overload state -Avoid nephrotoxins, renally dose medications #NSTEMI, type II- resolved -Patient denies chest pain -Patient has demand ischemia likely secondary to acute illness -Initial troponin 0.095 -> 0.095 -> 0.76 #History of CVA in the setting of #A-fib-rate controlled -Patient patient states he has a history of stroke without residual deficit many years ago was diagnosed with A-fib and was started on Eliquis by his senior project leader/team lead Dr. Grider -hold home Eliquis and aspirin as patient will be undergoing lung mass biopsy on -Hold home metoprolol XL due to soft BP #GERD-like symptoms # Dysphagia # Esophageal strictures s/p dilation on 10/17 Patient complains of burning sensation whenever he eats causing poor appetite. He feels like someone is stuck in his throat -Pantoprazole 40 mg PO qday -Famotidine 20 mg PO qday prn if symptoms persist -Speech evaluation completed -Consult GI, appreciate recommendations -EGD done findings are consistent with esophageal stricture, esophagitis, gastritis #BPH -Resume home finasteride 5 Mg daily and tamsulosin 0.4 Mg p.o. daily Health Maintenance Disposition: telemetry for acute hypoxic respiratory failure secondary to bilateral pneumonia and CHF exacerbation, metastatic malignant cells DVT Prophylaxis: Patient is on home Eliquis- held for biopsy on 10/18 GI Prophylaxis: Pantoprozol-40 IV Qday Diet: Cardiac Diet Lines: Peripheral lines Code status: Full Assessment and plan discussed with my senior resident Dr. Marcelo & attending physician Dr. Garett Holguin (PGY-1)- Internal medicine resident Attending Provider Attestation/Addendum IShaila, , attest that I was physically present for the rodriguez portions of the service and evaluated the patient with the resident and I reviewed and discussed the case with the resident and agree with the resident's findings and plans of care as documented above Patient seen and evaluated this AM. Biopsy done this AM, prelim report from pathology is consistent with malignancy, pending final stains to determine possible primary source. Patient is requiring 5L/NC at this time. Encouraged use of incentive spirometer. Continue wtih current management and titrate O2 as tolerated.
--- NOTE | 2024-10-18 20:34 | PD.IMPROG ---
Documentation for date of: 10/18/24 Subjective Subjective Interval history: Evaluated the patient No difficulty swallowing Food is going down very well after endoscopic dilatation of the proximal esophageal stricture with guidewire savory dilators [place] 45 and [place] 54 Exam Vital Signs Temp Pulse Resp BP Pulse Ox O2 Del Method O2 Flow Rate 97.2 F 96 22 H 127/65 98 Nasal Cannula 5 10/18/24 16:00 10/18/24 18:00 10/18/24 18:00 10/18/24 16:00 10/18/24 18:00 10/18/24 16:00 10/18/24 18:00 Constitutional Comments: Alert oriented Routine Respiratory Exam Comments: Scattered rhonchi Routine Abdominal Exam Comments: Soft nontender Objective Labs 10/18/24 04:34 10/18/24 04:34 Labs: Laboratory Results - last 24 hr 10/18/24 10/18/24 04:34 14:00 WBC 6.9 RBC 4.04 L Hgb 12.8 L Hct 38.3 L MCV 95 MCH 31.7 MCHC 33.4 RDW Std Deviation 49.3 H Plt Count 164 Neut % (Auto) 72 Lymph % (Auto) 9 L [place] % (Auto) 11 Eos % (Auto) 7 Baso % (Auto) 1 Neut # (Auto) 5.0 Lymph # (Auto) 0.6 L [place] # (Auto) 0.7 Eos # (Auto) 0.5 Baso # (Auto) 0.1 Immature Gran # (Auto) 0.02 H Absolute Nucleated RBC 0.00 Immature Gran % 0 Nucleated RBC % 0 PT 12.7 H INR 1.2 APTT 27.8 Sodium 135 L Potassium 4.2 Chloride 98 Carbon Dioxide 31.2 H Anion Gap 6 L BUN 28 H Creatinine 0.9 Estim Creat Clear Calc 73.2 eGFR > 60 BUN/Creatinine Ratio 31 H Glucose 125 H Calculated Osmolality 276 Calcium 8.9 Corrected Calcium 9.9 Phosphorus 1.9 L Magnesium 1.5 L Total Bilirubin 0.5 AST 23 ALT 22 Alkaline Phosphatase 223 H Lactate Dehydrogenase 291 H Total Protein 5.2 L Albumin 2.8 L Globulin 2.4 Albumin/Globulin Ratio 1.2 Impressions Impression: # Esophageal stricture proximal status post endoscopic guidewire savory dilatation [place] 45 and 54 # Dysphagia resolved after endoscopic dilatation continue current management Assessment & Plan A&P Narrative # Dysphagia # Abnormal weight loss Plan tentatively scheduled for fiberoptic esophagogastroduodenoscopy with possible biopsy possible Therapeutic intervention under intravenous moderate sedation of course it all depends upon his respiratory status in the FiO2 of the oxygen Other medical problems include # Atrial fibrillation on Eliquis # Essential hypertension # Diabetes mellitus type 2 # BPH Thank you very much for the opportunity to participate in the care of this patient Time Spent With Patient Time: Total time spent is greater than 50% in coordination of care (as documented) at patient's floor/unit and/or counseling patient:
[2024-10-18] MEDS: MELATONIN 3 MG TABLET PO (21:16)
[2024-10-18] MEDS: guaiFENesin/DM TABLET 1 EACH PO (21:19)
[2024-10-19] VITALS (20 sets, daily range): BP systolic 113–145; BP diastolic 63–88; PULSE 80–100; RESP 5–42; TEMP 36.2–36.9; O2SAT 90–98; BMI 33.2; BMI 12.0
[2024-10-19] MEDS: ALBUTEROL/IPRATROPIUM (Duoneb) RT SOL 3 ML NEBU INH ×4 (00:55→18:50)
[2024-10-19] MEDS: ACETAMINOPHEN 325 MG TABLET 650 MG PO (02:33)
[2024-10-19] MEDS: LORazepam 0.5 MG TABLET PO ×2 (02:43→21:07)
[2024-10-19] MEDS: CEFEPIME INJ 2 GM in SODIUM CHLORIDE 0.9% 50 ML IV ×3 (05:37→22:31)
[2024-10-19] MEDS: BENZONATATE 100 MG CAPSULE PO ×3 (05:37→22:30)
[2024-10-19 06:53] LABS: Basophils % (Auto) 0 % (0-2.5); Eosinophils # (Auto) 0.5 Thou/mm3 (0.0-0.5); Eosinophils % (Auto) 8 % (0-10); Hematocrit 38.1 % (41.0-53.0); Hemoglobin 12.7 g/dL (13.5-16.0); Immature Granulocytes % (Auto) 0 % (0-0); Immature Granulocytes Auto 0.03 Thou/mm3 (0.00-0.00); Lymphocytes # (Auto) 0.7 Thou/mm3 (1.0-4.8); Lymphocytes % (Auto) 10 % (10-50); Mean Corpuscular HGB Conc 33.3 g/dl (31.0-37.0); Mean Corpuscular Hemoglobin 31.6 pg (25.0-35.0); Mean Corpuscular Volume 95 fL (80-100); Monocytes # (Auto) 0.8 Thou/mm3 (0.0-0.8); Monocytes % (Auto) 12 % (0-12); Neutrophils # (Auto) 4.7 Thou/mm3 (1.8-7.7); Neutrophils % (Auto) 69 % (37-80); Nucleated Red Blood Cell % 0 /100 WBC (0); Platelet Count 141 Thou/mm3 (140-440); RDW Standard Deviation 49.5 fL (35.1-43.9); Red Blood Count 4.02 Miln/mm3 (4.50-5.90); White Blood Count 6.8 Thou/mm3 (3.8-10.6)
[2024-10-19 07:15] LABS: Alanine Aminotransferase 19 U/L (10-49); Albumin, Serum 2.9 gm/dL (3.4-4.8); Albumin/Globulin Ratio 1.2 (1.2-2.2); Alkaline Phosphatase 215 U/L (46-116); Anion Gap 6 (7-16); Aspartate Amino Transferase 19 U/L (0-34); BUN/Creatinine Ratio 33 Ratio (12-20); Bilirubin,Total 0.5 mg/dL (0.3-1.2); Blood Urea Nitrogen 30 mg/dL (9-23); Calcium 8.6 mg/dL (8.3-10.6); Calcium (Corrected) 9.5 mg/dL (8.5-10.1); Carbon Dioxide 33.5 mMol/L (20.0-31.0); Chloride 99 mMol/L (98-107); Creatinine (Component) 0.9 mg/dL (0.6-1.3); Estimated Creatinine Clearance 72.9 mL/min (>60); Globulin 2.4 gm/dL (2.3-3.5); Glucose 130 mg/dL (74-106); Magnesium 1.9 mg/dL (1.6-2.6); Osmolality,Calculated 283 (275-295); Phosphorous 2.4 mg/dL (2.4-5.1); Potassium 3.8 mMol/L (3.4-5.1); Sodium 138 mMol/L (136-145); Total Protein 5.3 gm/dL (5.7-8.2); eGFR > 60 See Note
[2024-10-19] MEDS: FINASTERIDE 5 MG TABLET PO (08:18)
[2024-10-19] MEDS: FUROSEMIDE INJ 10 MG/ML 4ML VIAL 40 MG IVP ×2 (08:18→21:09)
[2024-10-19] MEDS: PANTOPRAZOLE INJ 40 MG VIAL IV ×2 (08:18→21:07)
[2024-10-19] MEDS: SENNA TABLET 1 TAB PO (08:19)
[2024-10-19] MEDS: POLYETHYLENE GLYCOL 17 GM PACKET PO (08:19)
[2024-10-19 08:57] LABS: Base Excess 8 (-3-3); HCO3 34 mEq/L (20-26); Inspired O2, VO2 Liters 8 L/min; O2 Saturation 95 % (91-98); PCO2 55 mmHg (32.0-48.0); PO2 72 mmHg (83-108)
[2024-10-19 08:59] LABS: Allen Test Not Performed; Puncture Site Left Radial
--- NOTE | 2024-10-19 09:00 | PC.SS ---
Update: Patient on 5L oxygen and receiving IV antibiotics.
--- NOTE | 2024-10-19 10:02 | XR_ITS ---
Examination: AP chest single view Technique one AP portable sitting chest single view Exam date and time: October 19, 2024 1018 hours Comparison September 21, 2024 INDICATIONS: Hypoxia shortness of breath this week. FINDINGS: Nodular lung opacities again noted Mild enlargement cardiac contour No pneumothorax Reduced inspiratory effort Prominent osteopenia IMPRESSION: Pulmonary nodular metastatic disease with superimposed bilateral pneumonia
[2024-10-19] MEDS: APIXABAN 2.5 MG TABLET 5 MG PO ×2 (10:22→21:05)
[2024-10-19] MEDS: LACTULOSE SYRUP 20 GM/30 ML UDC PO (10:22)
[2024-10-19] MEDS: ASPIRIN EC 81 MG TABEC PO (10:23)
[2024-10-19] MEDS: BALSAM PERU/CASTOR OIL (Venelex) 60 GM TUBE TOP ×2 (10:23→21:06)
--- NOTE | 2024-10-19 14:45 | ESPR_ITS ---
Documentation for date of: 10/19/24 Senior resident attestation: Patient is a 89-year-old male with past medical history of atrial fibrillation Eliquis, hypertension, prediabetes, BPH, patient was admitted for acute hypoxic respiratory failure secondary pneumonia and CHF exacerbation. Chest imaging shows diffuse infiltrates bilaterally, concern for bilateral pneumonia versus possible metastatic disease, initial workup shows ulcerated lesion thoracic spine, further imaging unable to show primary malignancy, PSA levels were normal, patient has reported dysphagia and sticking sensation of food in esophagus, GI was consulted for possible EGD and biopsy. #Bilateral pneumonia?cocci negative, sputum culture positive for gram-negative rods, antibiotics ceftriaxone and azithromycin discontinued, started on cefepime 10/16/2024, Sputum culture produced Serratia marcescens and E. coli, sensitive to cefepime, negative blood cultures to date. Also possible metastatic disease, unknown primary. #Acute hypoxic respiratory failure?currently on 4 to 5 L oxygen via nasal cannula. # Metastatic disease?CT-guided lung biopsy was done on 10/18/2024 of right upper lobe pulmonary nodule, spoke to pathologist Dr. Yao preliminary pathology report is positive for malignant cells,unable to determine primary malignancy, final report to follow after special stains, likely metastatic disease as patient has osteolytic lesion in thoracic spine and numerous pulmonary nodules. Ultrasound-guided Thora centesis was ordered, but showed small bilateral pleural effusions. #Dysphagia?s/p endoscopic dilation of proximal esophageal stricture, improvement in swallowing following procedure. #CHF exacerbation?facility mechanic Dr. Grider is consulted following the patient recommended IV diuresis and antibiotics. #Pulm embolism ruled out?of note patient was inadequately anticoagulated on Eliquis 2.5, does not meet criteria for low-dose Eliquis, started on full dose anticoagulation Eliquis 5 mg twice daily. #Acute kidney injury resolved #NSTEMI type II #Rate controlled A-fib Patient evaluated and examined at the bedside, plan of care discussed with rest of the team including my attending physician, except as noted. Quresh PGY2 Subjective Subjective Interval history: 10/19: overnight pt reported he was have some abdominal pain which was causing him to sorthness of breath. He was given lorazepam which resolved his symptoms. Pt continues to have rectal pain when passing stool. Pt this morning is saturating 94% on 8L oxygen via oxymask. Pt endorses to using incentive spirometry every couple hours. Final pathology results are pending until tuesday.will switch pt on high flow as his respirations are in the 30's adn will repeat CXR. Pt. denies chestpain and abdominal pain. Exam Vital Signs Temp Pulse Resp BP Pulse Ox O2 Del Method O2 Flow Rate 97.1 F 87 25 H 130/70 96 High Flow Nasal Cannula 35 10/19/24 12:00 10/19/24 12:49 10/19/24 12:49 10/19/24 12:00 10/19/24 12:49 10/19/24 12:00 10/19/24 12:49 FiO2 50 10/19/24 12:49 Narrative Exam GENERAL: A&Ox3 . Awake, Not in acute distress NEURO: no focal neurological deficits HEENT: Atraumatic, Normocephalic. mucous membranes moist. Eyes open, symmetrical, & clear HEART: Normal Heart Sounds LUNGS: Clear breath sounds bilaterally ABDOMEN: soft, non-distended, non-tender, bowel sounds heard, no guarding or rebound tenderness SKIN: No Rash or ecchymoses, decubitus ulcer on buttocks EXTREMITIES:no pitting edema bilaterally resolved, no tenderness Objective Labs 10/19/24 06:06 10/19/24 06:06 Labs: Laboratory Results - last 24 hr 10/18/24 10/19/24 10/19/24 14:00 06:06 08:50 WBC 6.8 RBC 4.02 L Hgb 12.7 L Hct 38.1 L MCV 95 MCH 31.6 MCHC 33.3 RDW Std Deviation 49.5 H Plt Count 141 Neut % (Auto) 69 Lymph % (Auto) 10 [place] % (Auto) 12 Eos % (Auto) 8 Baso % (Auto) 0 Neut # (Auto) 4.7 Lymph # (Auto) 0.7 L [place] # (Auto) 0.8 Eos # (Auto) 0.5 Baso # (Auto) 0.0 Immature Gran # (Auto) 0.03 H Absolute Nucleated RBC 0.00 Immature Gran % 0 Nucleated RBC % 0 Puncture Site Left Radial ABG pH 7.40 ABG pCO2 55 H ABG pO2 72 L ABG HCO3 34 H ABG O2 Saturation 95 ABG Base Excess 8 H Oxygen Liter Flow 8 Sodium 138 Potassium 3.8 Chloride 99 Carbon Dioxide 33.5 H Anion Gap 6 L BUN 30 H Creatinine 0.9 Estim Creat Clear Calc 72.9 eGFR > 60 BUN/Creatinine Ratio 33 H Glucose 130 H Calculated Osmolality 283 Calcium 8.6 Corrected Calcium 9.5 Phosphorus 2.4 Magnesium 1.9 Total Bilirubin 0.5 AST 19 ALT 19 Alkaline Phosphatase 215 H Lactate Dehydrogenase 291 H Total Protein 5.3 L Albumin 2.9 L Globulin 2.4 Albumin/Globulin Ratio 1.2 ABG Interpretation ABG results: 10/19/24 08:50 ABG pH 7.40 ABG pCO2 55 H ABG pO2 72 L ABG HCO3 34 H ABG O2 Saturation 95 ABG Base Excess 8 H Quality Measures Quality Measures VTE prophylaxis Advance care planning discussed with:: patient Assessment & Plan Assessment Current Active Medications: Generic Name Dose Route Start Last Admin Trade Name Freq PRN Reason Stop Dose Admin Acetaminophen 650 mg 10/13/24 21:44 10/19/24 02:33 Acetaminophen 325 Mg Tablet PO 11/12/24 21:43 650 mg Q6H PRN Administration Fever >100.4 or Pain 1-10 Albuterol/Ipratropium 3 ml 10/16/24 19:00 10/19/24 12:47 Albuterol/Ipratropium (Duoneb) Rt Diana 3 Ml Nebu INH 11/15/24 18:59 3 ml Q6HRRT MARCY Administration Apixaban 5 mg 10/15/24 21:00 10/19/24 10:22 Apixaban 2.5 Mg Tablet PO 11/14/24 20:59 5 mg BID MARCY Administration Aspirin 81 mg 10/14/24 09:00 10/19/24 10:23 Aspirin Ec 81 Mg Tabec PO 11/13/24 08:59 81 mg DAILY MARCY Administration Balsam Magda/[place] Oil 0 gm 10/16/24 21:00 10/19/24 10:23 Balsam [place] Oil (Venelex) 60 Gm Tube TOP 11/15/24 20:59 1 applicatio BID MARCY Administration Benzonatate 100 mg 10/16/24 22:00 10/19/24 14:10 Benzonatate 100 Mg Capsule PO 11/15/24 21:59 100 mg TID MARCY Administration Protocol Bisacodyl 10 mg 10/13/24 21:44 10/17/24 00:52 Bisacodyl 5 Mg Tabec PO 11/12/24 21:43 10 mg QDAY PRN Administration CONSTIPATION Protocol Famotidine 20 mg 10/13/24 23:23 Famotidine 20 Mg Tablet PO 11/12/24 23:22 DAILY PRN GERD Finasteride 5 mg 10/15/24 09:00 10/19/24 08:18 Finasteride 5 Mg Tablet PO 11/14/24 08:59 5 mg QDAY MARCY Administration Furosemide 40 mg 10/18/24 21:00 10/19/24 08:18 Furosemide Inj 10 Mg/Ml 4ml Vial IVP 11/17/24 20:59 40 mg BID MARCY Administration Guaifenesin/Dextromethorphan 1 each 10/15/24 09:51 10/18/24 21:19 Guaifenesin/Dm Tablet PO 11/14/24 09:50 1 each BID PRN Administration COUGH Cefepime HCl 2 gm/ Sodium 50 mls @ 100 mls/hr 10/16/24 14:30 10/19/24 14:10 Chloride IV 10/23/24 13:31 100 mls/hr Q8HR MARCY Administration Lidocaine 1 patch 10/15/24 14:45 Lidocaine 5% 1 Patch TOP 11/14/24 14:44 DAILY PRN RIGHT SHOULDER PAIN Melatonin 3 mg 10/16/24 21:00 10/18/24 21:16 Melatonin 3 Mg Tablet PO 11/15/24 20:59 3 mg HS MARCY Administration Ondansetron HCl 4 mg 10/13/24 21:44 Ondansetron Inj 2 Mg/Ml Inj 2 Ml IV 11/12/24 21:43 Q6H PRN NAUSEA OR VOMITING Protocol Pantoprazole Sodium 40 mg 10/17/24 21:00 10/19/24 08:18 Pantoprazole Inj 40 Mg Vial IV 11/16/24 20:59 40 mg BID MARCY Administration Polyethylene Glycol 17 gm 10/15/24 12:15 10/19/24 08:19 Polyethylene Glycol 17 Gm Packet PO 11/14/24 12:14 17 gm QDAY MARCY Administration Sennosides 1 tab 10/15/24 12:15 10/19/24 08:19 Senna Tablet PO 11/14/24 12:14 1 tab QDAY MARCY Administration Protocol Plan Mr. Scott is a 84-year-old male with past medical history of afib on Eliquis, hypertension, prediabetes, and BPH who presented to the ED on 10/13/2024 with 6 weeks of cough, SOB , worsening generalized body weakness and bilateral leg swelling for the last 3 days. Patient is admitted to the hospital for acute hypoxic respiratory failure secondary to pneumonia and CHF exacerbation. # Concern for metastatic malignancy # Unknown primary location -Patient does not have a known history of cancer however father had esophageal cancer -Patient states his last colonoscopy was less than 3 years ago and no significant findings or polyps were noted -Patient recently lost 30 pounds in 2 months -CTA of chest- Extensive nodular parenchymal disease throughout both lungs, the subcentimeter bilateral nodules noted could be infectious in etiology or represent pulmonary nodular metastatic disease, clinical correlation advised and follow-up recommended post treatment for pneumonia. 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 -CT abdomen/pelvis- Poor primary hepatocellular disease, Multiple benign renal cysts, the largest upper pole right kidney 14 cm, No bowel obstruction, Significant stool in the rectum with proctitis pattern -PSA - 0.97, PTH 16, hypercalcemia on admission, vitamin D 47.3 -CEA 2.9 -workup for autoimmune conditions, multiple myeloma workup ordered -Consulted GI, patient underwent esophageal dilation for esophageal strictures found in EGD -s/p lung biopsy - final results pending #Acute hypoxic respiratory failure #Community-acquired pneumonia #Acute CHF exacerbation #Lower extremity edema -Patient has productive cough, generalized weakness, shortness of breath and lower extremity edema for several weeks -Chest x-ray: diffuse significant bilateral pneumonia, Mild associated heart failure -Venous Doppler ultrasound of lower extremities bilaterally: Negative for deep vein thrombosis -EKG: A-fib with SVR -Cocci IgM negative Plan: -Fluid restrictions 1500 -Strict ins and outs -Obtain weight daily -DuoNebs every 6 hours -Mucinex as needed -Patient is advised to keep legs elevated with a pillow under LE ?O2 support PRN -Echocardiogram was done at Dr. Grider office outpatient couple days before admission. Per Dr. Grider EF was 75% and no pericardial effusions noted. -Public Health Social Worker Dr. Grider consulted, appreciate recommendations -Furosemide 40 Mg IVP BID -Discontinued ceftriaxone and azithromycin -Sputum cultures are positive for Serratia marcescens and E. coli -cefepime started 10/16- #Concern for PE- ruled out #Generalized weakness #Hypercalcemia- resolved -on admission Corrected calcium on labs is 12.3, patient denies any prior knowledge of hypercalcemia and cannot recall if he takes any calcium supplements -Elevated corrected calcium 12.7. On the patient's home medications list brought in by family, listed is Vitamin D3 125 mcg (5000 IU) qday. Likely secondary to Vitamin D hypervitaminosis if he is still actively taking it. Other differentials include possible malignancy, parathyroid disorders -Wells criteria for pulmonary embolism is 4.5 patient is at moderate risk group: 16.2% chance of PE in an ED population Plan: -PTH is 16 -25 hydroxy vitamin D- 47 -patient was given calcitonin 400 unit x 1 -Pamidronate 60 Mg x 1 ordered -CTA of chest- Negative for pulmonary artery emboli -Will monitor CMP #Acute Kidney Injury?resolved Baseline Cr 1.1 Cr 1.4 on admission. Most likely prerenal in setting of decreased PO intake Plan: -monitor Daily CMP -On admission patient was given 1 L bolus fluid, will hold maintenance fluid due to patient's acute exacerbation of CHF and fluid overload state -Avoid nephrotoxins, renally dose medications #NSTEMI, type II- resolved -Patient denies chest pain -Patient has demand ischemia likely secondary to acute illness -Initial troponin 0.095 -> 0.095 -> 0.76 #History of CVA in the setting of #A-fib-rate controlled -Patient patient states he has a history of stroke without residual deficit many years ago was diagnosed with A-fib and was started on Eliquis by his facility mechanic Dr. Grider -hold home Eliquis and aspirin as patient will be undergoing lung mass biopsy on -Hold home metoprolol XL due to soft BP #GERD-like symptoms # Dysphagia # Esophageal strictures s/p dilation on 10/17 Patient complains of burning sensation whenever he eats causing poor appetite. He feels like someone is stuck in his throat -Pantoprazole 40 mg PO qday -Famotidine 20 mg PO qday prn if symptoms persist -Speech evaluation completed -Consult GI, appreciate recommendations -EGD done findings are consistent with esophageal stricture, esophagitis, gastritis #BPH -Resume home finasteride 5 Mg daily and tamsulosin 0.4 Mg p.o. daily Health Maintenance Disposition: telemetry for acute hypoxic respiratory failure secondary to bilateral pneumonia and CHF exacerbation, metastatic malignant cells on lung biopsy DVT Prophylaxis: Patient is on home Eliquis GI Prophylaxis: Pantoprozol-40 IV Qday Diet: Cardiac Diet Lines: Peripheral lines Code status: Full Assessment and plan discussed with my senior resident Dr. Marcelo & attending physician Dr. Garett Holguin (PGY-1)- Internal medicine resident Attending Provider Attestation/Addendum IShaila DO, attest that I was physically present for the rodriguez portions of the service and evaluated the patient with the resident and I reviewed and discussed the case with the resident and agree with the resident's findings and plans of care as documented above Patient seen and evaluated this AM. Patient states he is doing well. Patient placed on HFNC with FIo2 of 50% and flow of 25L/min. Patient encouraged to use incentive spirometer. Titrate O2 as tolerated. CXR appears slightly improved. Will continue with current management. Pending final path report, prelim suspicious for squamous cell vs biliary tree vs renal cell carcinoma. It is unlikely to be adenocarcinoma including small cell, colorectal, prostate or multiple myeloma.
[2024-10-19] MEDS: GLYCERIN, ADULT 1 EA SUPP 1 EACH PR (15:43)
--- NOTE | 2024-10-19 19:34 | ESPR_ITS ---
Documentation for date of: 10/19/24 Subjective Subjective Interval history: Evaluated the patient doing very well normal dysphagia Exam Vital Signs Temp Pulse Resp BP Pulse Ox O2 Del Method O2 Flow Rate 98.5 F 88 36 H 140/85 H 94 L High Flow Nasal Cannula 35 10/19/24 16:00 10/19/24 16:00 10/19/24 16:00 10/19/24 16:00 10/19/24 16:00 10/19/24 16:00 10/19/24 16:00 FiO2 50 10/19/24 16:00 Constitutional Comments: Alert oriented Routine Respiratory Exam Comments: Scattered rhonchi Routine Abdominal Exam Comments: Soft nontender Objective Labs 10/19/24 06:06 10/19/24 06:06 Labs: Laboratory Results - last 24 hr 10/19/24 10/19/24 06:06 08:50 WBC 6.8 RBC 4.02 L Hgb 12.7 L Hct 38.1 L MCV 95 MCH 31.6 MCHC 33.3 RDW Std Deviation 49.5 H Plt Count 141 Neut % (Auto) 69 Lymph % (Auto) 10 [place] % (Auto) 12 Eos % (Auto) 8 Baso % (Auto) 0 Neut # (Auto) 4.7 Lymph # (Auto) 0.7 L [place] # (Auto) 0.8 Eos # (Auto) 0.5 Baso # (Auto) 0.0 Immature Gran # (Auto) 0.03 H Absolute Nucleated RBC 0.00 Immature Gran % 0 Nucleated RBC % 0 Puncture Site Left Radial ABG pH 7.40 ABG pCO2 55 H ABG pO2 72 L ABG HCO3 34 H ABG O2 Saturation 95 ABG Base Excess 8 H Oxygen Liter Flow 8 Sodium 138 Potassium 3.8 Chloride 99 Carbon Dioxide 33.5 H Anion Gap 6 L BUN 30 H Creatinine 0.9 Estim Creat Clear Calc 72.9 eGFR > 60 BUN/Creatinine Ratio 33 H Glucose 130 H Calculated Osmolality 283 Calcium 8.6 Corrected Calcium 9.5 Phosphorus 2.4 Magnesium 1.9 Total Bilirubin 0.5 AST 19 ALT 19 Alkaline Phosphatase 215 H Total Protein 5.3 L Albumin 2.9 L Globulin 2.4 Albumin/Globulin Ratio 1.2 Impressions Impression: # Dysphagia improved after endoscopic dilatation # Esophageal stricture status post endoscopic dilatation Continue current management ABG Interpretation ABG results: 10/19/24 08:50 ABG pH 7.40 ABG pCO2 55 H ABG pO2 72 L ABG HCO3 34 H ABG O2 Saturation 95 ABG Base Excess 8 H Assessment & Plan A&P Narrative # Dysphagia # Abnormal weight loss Plan tentatively scheduled for fiberoptic esophagogastroduodenoscopy with possible biopsy possible Therapeutic intervention under intravenous moderate sedation of course it all depends upon his respiratory status in the FiO2 of the oxygen Other medical problems include # Atrial fibrillation on Eliquis # Essential hypertension # Diabetes mellitus type 2 # BPH Thank you very much for the opportunity to participate in the care of this patient Time Spent With Patient Time: Total time spent is greater than 50% in coordination of care (as documented) at patient's floor/unit and/or counseling patient:
[2024-10-19] MEDS: MELATONIN 3 MG TABLET PO (21:06)
[2024-10-19 22:06] LABS: Albumin 2.4 g/dL (3.8-4.8); Alpha-1-Globulin 0.4 g/dL (0.2-0.3); Alpha-2-Globulin 0.9 g/dL (0.5-0.9); Beta-1-Globulin 0.3 g/dL (0.4-0.6); Beta-2-globulin 0.3 g/dL (0.2-0.5); Gamma Globulin 0.8 g/dL (0.8-1.7)
[2024-10-20] VITALS (20 sets, daily range): BP systolic 126–167; BP diastolic 69–90; PULSE 84–99; RESP 18–43; TEMP 36.1–37.2; O2SAT 91–99
[2024-10-20] MEDS: ALBUTEROL/IPRATROPIUM (Duoneb) RT SOL 3 ML NEBU INH ×4 (00:40→18:47)
[2024-10-20] MEDS: CEFEPIME INJ 2 GM in SODIUM CHLORIDE 0.9% 50 ML IV ×3 (05:34→21:28)
[2024-10-20] MEDS: BENZONATATE 100 MG CAPSULE PO ×3 (05:34→21:28)
[2024-10-20 06:21] LABS: Basophils # (Auto) 0.1 Thou/mm3 (0.0-0.2); Basophils % (Auto) 1 % (0-2.5); Eosinophils # (Auto) 0.7 Thou/mm3 (0.0-0.5); Eosinophils % (Auto) 8 % (0-10); Hematocrit 39.5 % (41.0-53.0); Hemoglobin 13.2 g/dL (13.5-16.0); Immature Granulocytes % (Auto) 1 % (0-0); Immature Granulocytes Auto 0.04 Thou/mm3 (0.00-0.00); Lymphocytes # (Auto) 0.8 Thou/mm3 (1.0-4.8); Lymphocytes % (Auto) 10 % (10-50); Mean Corpuscular HGB Conc 33.4 g/dl (31.0-37.0); Mean Corpuscular Hemoglobin 31.4 pg (25.0-35.0); Mean Corpuscular Volume 94 fL (80-100); Monocytes # (Auto) 0.7 Thou/mm3 (0.0-0.8); Monocytes % (Auto) 9 % (0-12); Neutrophils # (Auto) 5.7 Thou/mm3 (1.8-7.7); Neutrophils % (Auto) 72 % (37-80); Nucleated Red Blood Cell % 0 /100 WBC (0); Platelet Count 193 Thou/mm3 (140-440); RDW Standard Deviation 49.2 fL (35.1-43.9)
[2024-10-20 06:56] LABS: Alanine Aminotransferase 21 U/L (10-49); Albumin, Serum 3.1 gm/dL (3.4-4.8); Albumin/Globulin Ratio 1.2 (1.2-2.2); Alkaline Phosphatase 238 U/L (46-116); Anion Gap 6 (7-16); Aspartate Amino Transferase 26 U/L (0-34); BUN/Creatinine Ratio 30 Ratio (12-20); Bilirubin,Total 0.6 mg/dL (0.3-1.2); Blood Urea Nitrogen 30 mg/dL (9-23); Calcium 8.4 mg/dL (8.3-10.6); Calcium (Corrected) 9.1 mg/dL (8.5-10.1); Carbon Dioxide 32.3 mMol/L (20.0-31.0); Chloride 99 mMol/L (98-107); Estimated Creatinine Clearance 65.6 mL/min (>60); Globulin 2.6 gm/dL (2.3-3.5); Glucose 127 mg/dL (74-106); Osmolality,Calculated 282 (275-295); Phosphorous 1.5 mg/dL (2.4-5.1); Potassium 3.7 mMol/L (3.4-5.1); Sodium 137 mMol/L (136-145); Total Protein 5.7 gm/dL (5.7-8.2); eGFR > 60 See Note
[2024-10-20] MEDS: PANTOPRAZOLE INJ 40 MG VIAL IV ×2 (08:52→21:27)
[2024-10-20] MEDS: FUROSEMIDE INJ 10 MG/ML 4ML VIAL 40 MG IVP (08:53)
[2024-10-20] MEDS: NAPH,KPH MBDB 1 PACKET (1.5 GM) PO (08:53)
[2024-10-20] MEDS: ASPIRIN EC 81 MG TABEC PO (08:53)
[2024-10-20] MEDS: APIXABAN 2.5 MG TABLET 5 MG PO ×2 (08:53→21:26)
[2024-10-20] MEDS: POLYETHYLENE GLYCOL 17 GM PACKET PO (08:53)
[2024-10-20] MEDS: FINASTERIDE 5 MG TABLET PO (08:54)
[2024-10-20] MEDS: SENNA TABLET 1 TAB PO (08:54)
[2024-10-20] MEDS: POT PHOS 15 mMol in NS 250 ML 15 MMOL/250 ML BAG 62.5 MMOL IV (08:54)
[2024-10-20] MEDS: BALSAM PERU/CASTOR OIL (Venelex) 60 GM TUBE TOP ×2 (08:55→21:27)
--- NOTE | 2024-10-20 09:19 | PC.PT ---
PT tx on hold. Patient is transferred to ICU. Will resume when patient is medically stable to participate with PT.
[2024-10-20] MEDS: DEXAMETHASONE INJ 20 MG in SODIUM CHLORIDE 0.9% 50 ML 208 MG IV (13:34)
--- NOTE | 2024-10-20 14:08 | PD.RESPRO ---
Documentation for date of: 10/20/24 Subjective Subjective Interval history: Patient evaluated bedside, currently in ICU due to telemetry capacity overflow, on high flow nasal cannula oxygen, saturating well. X-ray findings consistent with ARDS according to my interpretation, PF ratio less than 300, less likely cardiogenic cause pulmonary infiltrates, gram-negative pneumonia as well as underlying metastatic disease. Will continue IV antibiotic will add dexamethasone for ARDS, started on IV dexamethasone 20 mg daily, will continue to monitor clinical situation. Will hold off on iv diuresis as pt is clinically dry and increasing BUN on labs. Exam Vital Signs Temp Pulse Resp BP Pulse Ox O2 Del Method O2 Flow Rate 98.7 F 96 33 H 146/90 H 96 High Flow Nasal Cannula 35 10/20/24 12:01 10/20/24 12:30 10/20/24 12:30 10/20/24 12:01 10/20/24 12:30 10/20/24 12:01 10/20/24 12:30 FiO2 50 10/20/24 12:30 Narrative Exam GENERAL: A&Ox3 . Awake, Not in acute distress NEURO: no focal neurological deficits HEENT: Atraumatic, Normocephalic. mucous membranes moist. Eyes open, symmetrical, & clear HEART: Normal Heart Sounds LUNGS: Clear breath sounds bilaterally ABDOMEN: soft, non-distended, non-tender, bowel sounds heard, no guarding or rebound tenderness SKIN: No Rash or ecchymoses, decubitus ulcer on buttocks EXTREMITIES:no pitting edema bilaterally resolved, no tenderness Objective Labs 10/21/24 04:42 10/21/24 04:42 Labs: Laboratory Results - last 24 hr 10/20/24 05:00 WBC 8.0 RBC 4.20 L Hgb 13.2 L Hct 39.5 L MCV 94 MCH 31.4 MCHC 33.4 RDW Std Deviation 49.2 H Plt Count 193 D Neut % (Auto) 72 Lymph % (Auto) 10 [place] % (Auto) 9 Eos % (Auto) 8 Baso % (Auto) 1 Neut # (Auto) 5.7 Lymph # (Auto) 0.8 L [place] # (Auto) 0.7 Eos # (Auto) 0.7 H Baso # (Auto) 0.1 Immature Gran # (Auto) 0.04 H Absolute Nucleated RBC 0.00 Immature Gran % 1 H Nucleated RBC % 0 Sodium 137 Potassium 3.7 Chloride 99 Carbon Dioxide 32.3 H Anion Gap 6 L BUN 30 H Creatinine 1.0 Estim Creat Clear Calc 65.6 eGFR > 60 BUN/Creatinine Ratio 30 H Glucose 127 H Calculated Osmolality 282 Calcium 8.4 Corrected Calcium 9.1 Phosphorus 1.5 L Magnesium 2.0 Total Bilirubin 0.6 AST 26 ALT 21 Alkaline Phosphatase 238 H D Total Protein 5.7 Albumin 3.1 L Globulin 2.6 Albumin/Globulin Ratio 1.2 ABG Interpretation ABG results: 10/19/24 08:50 ABG pH 7.40 ABG pCO2 55 H ABG pO2 72 L ABG HCO3 34 H ABG O2 Saturation 95 ABG Base Excess 8 H Quality Measures Quality Measures VTE prophylaxis Advance care planning discussed with:: patient Assessment & Plan Assessment Current Active Medications: Generic Name Dose Route Start Last Admin Trade Name Freq PRN Reason Stop Dose Admin Acetaminophen 650 mg 10/13/24 21:44 10/19/24 02:33 Acetaminophen 325 Mg Tablet PO 11/12/24 21:43 650 mg Q6H PRN Administration Fever >100.4 or Pain 1-10 Albuterol/Ipratropium 3 ml 10/16/24 19:00 10/20/24 12:30 Albuterol/Ipratropium (Duoneb) Rt Diana 3 Ml Nebu INH 11/15/24 18:59 3 ml Q6HRRT MARCY Administration Apixaban 5 mg 10/15/24 21:00 10/20/24 08:53 Apixaban 2.5 Mg Tablet PO 11/14/24 20:59 5 mg BID MARCY Administration Aspirin 81 mg 10/14/24 09:00 10/20/24 08:53 Aspirin Ec 81 Mg Tabec PO 11/13/24 08:59 81 mg DAILY MARCY Administration Balsam Magda/[place] Oil 0 gm 10/16/24 21:00 10/20/24 08:55 Balsam [place] Oil (Venelex) 60 Gm Tube TOP 11/15/24 20:59 1 applicatio BID MARCY Administration Benzonatate 100 mg 10/16/24 22:00 10/20/24 13:35 Benzonatate 100 Mg Capsule PO 11/15/24 21:59 100 mg TID MARCY Administration Protocol Bisacodyl 10 mg 10/13/24 21:44 10/17/24 00:52 Bisacodyl 5 Mg Tabec PO 11/12/24 21:43 10 mg QDAY PRN Administration CONSTIPATION Protocol Famotidine 20 mg 10/13/24 23:23 Famotidine 20 Mg Tablet PO 11/12/24 23:22 DAILY PRN GERD Finasteride 5 mg 10/15/24 09:00 10/20/24 08:54 Finasteride 5 Mg Tablet PO 11/14/24 08:59 5 mg QDAY MARCY Administration Furosemide 40 mg 10/18/24 21:00 10/20/24 08:53 Furosemide Inj 10 Mg/Ml 4ml Vial IVP 11/17/24 20:59 40 mg BID MARCY Administration Guaifenesin/Dextromethorphan 1 each 10/15/24 09:51 10/18/24 21:19 Guaifenesin/Dm Tablet PO 11/14/24 09:50 1 each BID PRN Administration COUGH Cefepime HCl 2 gm/ Sodium 50 mls @ 100 mls/hr 10/16/24 14:30 10/20/24 14:07 Chloride IV 10/23/24 13:31 100 mls/hr Q8HR MARCY Administration Dexamethasone Sodium Phosphate 52 mls @ 208 mls/hr 10/20/24 11:45 10/20/24 13:34 20 mg/ Sodium Chloride IV 10/20/24 16:00 208 mls/hr QDAY MARCY Administration Dexamethasone Sodium Phosphate 52 mls @ 104 mls/hr 10/21/24 09:00 20 mg/ Sodium Chloride IV 10/24/24 09:29 QDAY MARCY Lidocaine 1 patch 10/15/24 14:45 Lidocaine 5% 1 Patch TOP 11/14/24 14:44 DAILY PRN RIGHT SHOULDER PAIN Melatonin 3 mg 10/16/24 21:00 10/19/24 21:06 Melatonin 3 Mg Tablet PO 11/15/24 20:59 3 mg HS MARCY Administration Ondansetron HCl 4 mg 10/13/24 21:44 Ondansetron Inj 2 Mg/Ml Inj 2 Ml IV 11/12/24 21:43 Q6H PRN NAUSEA OR VOMITING Protocol Pantoprazole Sodium 40 mg 10/17/24 21:00 10/20/24 08:52 Pantoprazole Inj 40 Mg Vial IV 11/16/24 20:59 40 mg BID MARCY Administration Polyethylene Glycol 17 gm 10/15/24 12:15 02/01/25 08:53 Polyethylene Glycol 17 Gm Packet PO 11/14/24 12:14 17 gm QDAY MARCY Administration Sennosides 1 tab 10/15/24 12:15 10/20/24 08:54 Senna Tablet PO 11/14/24 12:14 1 tab QDAY MARCY Administration Protocol Plan Mr. Scott is a 84-year-old male with past medical history of afib on Eliquis, hypertension, prediabetes, and BPH who presented to the ED on 10/13/2024 with 6 weeks of cough, SOB , worsening generalized body weakness and bilateral leg swelling for the last 3 days. Patient is admitted to the hospital for acute hypoxic respiratory failure secondary to pneumonia and CHF exacerbation. # Concern for metastatic malignancy # Unknown primary location -Patient does not have a known history of cancer however father had esophageal cancer -Patient states his last colonoscopy was less than 3 years ago and no significant findings or polyps were noted -Patient recently lost 30 pounds in 2 months -CTA of chest- Extensive nodular parenchymal disease throughout both lungs, the subcentimeter bilateral nodules noted could be infectious in etiology or represent pulmonary nodular metastatic disease, clinical correlation advised and follow-up recommended post treatment for pneumonia. 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 -CT abdomen/pelvis- Poor primary hepatocellular disease, Multiple benign renal cysts, the largest upper pole right kidney 14 cm, No bowel obstruction, Significant stool in the rectum with proctitis pattern -PSA - 0.97, PTH 16, hypercalcemia on admission, vitamin D 47.3 -CEA 2.9 -workup for autoimmune conditions, multiple myeloma workup ordered -Consulted GI, patient underwent esophageal dilation for esophageal strictures found in EGD -s/p lung biopsy - final results pending #Acute hypoxic respiratory failure #Community-acquired pneumonia #Acute CHF exacerbation #Lower extremity edema -Patient has productive cough, generalized weakness, shortness of breath and lower extremity edema for several weeks -Chest x-ray: diffuse significant bilateral pneumonia, Mild associated heart failure -Venous Doppler ultrasound of lower extremities bilaterally: Negative for deep vein thrombosis -EKG: A-fib with SVR -Cocci IgM negative Plan: -Fluid restrictions 1500 -Strict ins and outs -Obtain weight daily -DuoNebs every 6 hours -Mucinex as needed -Patient is advised to keep legs elevated with a pillow under LE ?O2 support PRN -Echocardiogram was done at Dr. Grider office outpatient couple days before admission. Per Dr. Grider EF was 75% and no pericardial effusions noted. -Automatic Beading Lathe Operator Dr. Grider consulted, appreciate recommendations -Furosemide 40 Mg IVP BID- on hold -Discontinued ceftriaxone and azithromycin -Sputum cultures are positive for Serratia marcescens and E. coli -cefepime started 10/16- -dexamethasone iv 20mg qday #Concern for PE- ruled out #Generalized weakness #Hypercalcemia- resolved -on admission Corrected calcium on labs is 12.3, patient denies any prior knowledge of hypercalcemia and cannot recall if he takes any calcium supplements -Elevated corrected calcium 12.7. On the patient's home medications list brought in by family, listed is Vitamin D3 125 mcg (5000 IU) qday. Likely secondary to Vitamin D hypervitaminosis if he is still actively taking it. Other differentials include possible malignancy, parathyroid disorders -Wells criteria for pulmonary embolism is 4.5 patient is at moderate risk group: 16.2% chance of PE in an ED population Plan: -PTH is 16 -25 hydroxy vitamin D- 47 -patient was given calcitonin 400 unit x 1 -Pamidronate 60 Mg x 1 ordered -CTA of chest- Negative for pulmonary artery emboli -Will monitor CMP #Acute Kidney Injury?resolved Baseline Cr 1.1 Cr 1.4 on admission. Most likely prerenal in setting of decreased PO intake Plan: -monitor Daily CMP -On admission patient was given 1 L bolus fluid, will hold maintenance fluid due to patient's acute exacerbation of CHF and fluid overload state -Avoid nephrotoxins, renally dose medications #NSTEMI, type II- resolved -Patient denies chest pain -Patient has demand ischemia likely secondary to acute illness -Initial troponin 0.095 -> 0.095 -> 0.76 #History of CVA in the setting of #A-fib-rate controlled -Patient patient states he has a history of stroke without residual deficit many years ago was diagnosed with A-fib and was started on Eliquis by his automation test developer Dr. Grider -hold home Eliquis and aspirin as patient will be undergoing lung mass biopsy on -Hold home metoprolol XL due to soft BP #GERD-like symptoms # Dysphagia # Esophageal strictures s/p dilation on 10/17 Patient complains of burning sensation whenever he eats causing poor appetite. He feels like someone is stuck in his throat -Pantoprazole 40 mg PO qday -Famotidine 20 mg PO qday prn if symptoms persist -Speech evaluation completed -Consult GI, appreciate recommendations -EGD done findings are consistent with esophageal stricture, esophagitis, gastritis #BPH -Resume home finasteride 5 Mg daily and tamsulosin 0.4 Mg p.o. daily Health Maintenance Disposition: telemetry for acute hypoxic respiratory failure secondary to bilateral pneumonia and CHF exacerbation, metastatic malignant cells on lung biopsy DVT Prophylaxis: Patient is on home Eliquis GI Prophylaxis: Pantoprozol-40 IV Qday Diet: Cardiac Diet Lines: Peripheral lines Code status: Full Assessment and plan discussed with my attending physician Dr. Ailyn Marcelo ([id number]-2)- Internal medicine resident Attending Provider Attestation/Addendum Patient was seen and examined in rm [id number]. Relatives at bedside. He is in moderate respiratory distress requiring HFN oxygen delivery. He has probable metastatic ca, sp biopsy of right upper lung nodule. He has CHF, AFIB and history of CVA. Follow up biopsy report.
--- NOTE | 2024-10-20 16:37 | PD.IMPROG ---
Documentation for date of: 10/20/24 Subjective Subjective Interval history: Patient moved to ICU no difficulty in swallowing Exam Vital Signs Temp Pulse Resp BP Pulse Ox O2 Del Method O2 Flow Rate 98.7 F 92 32 H 146/90 H 94 L High Flow Nasal Cannula 35 10/20/24 12:01 10/20/24 15:25 10/20/24 15:25 10/20/24 12:01 10/20/24 15:25 10/20/24 12:01 10/20/24 15:25 FiO2 50 10/20/24 15:25 Objective Labs 10/20/24 05:00 10/20/24 05:00 Labs: Laboratory Results - last 24 hr 10/20/24 05:00 WBC 8.0 RBC 4.20 L Hgb 13.2 L Hct 39.5 L MCV 94 MCH 31.4 MCHC 33.4 RDW Std Deviation 49.2 H Plt Count 193 D Neut % (Auto) 72 Lymph % (Auto) 10 [place] % (Auto) 9 Eos % (Auto) 8 Baso % (Auto) 1 Neut # (Auto) 5.7 Lymph # (Auto) 0.8 L [place] # (Auto) 0.7 Eos # (Auto) 0.7 H Baso # (Auto) 0.1 Immature Gran # (Auto) 0.04 H Absolute Nucleated RBC 0.00 Immature Gran % 1 H Nucleated RBC % 0 Sodium 137 Potassium 3.7 Chloride 99 Carbon Dioxide 32.3 H Anion Gap 6 L BUN 30 H Creatinine 1.0 Estim Creat Clear Calc 65.6 eGFR > 60 BUN/Creatinine Ratio 30 H Glucose 127 H Calculated Osmolality 282 Calcium 8.4 Corrected Calcium 9.1 Phosphorus 1.5 L Magnesium 2.0 Total Bilirubin 0.6 AST 26 ALT 21 Alkaline Phosphatase 238 H D Total Protein 5.7 Albumin 3.1 L Globulin 2.6 Albumin/Globulin Ratio 1.2 Impressions Impression: # Proximal esophageal stricture status post endoscopic dilatation improved dysphagia after endoscopic dilatation # ABG Interpretation ABG results: 10/19/24 08:50 ABG pH 7.40 ABG pCO2 55 H ABG pO2 72 L ABG HCO3 34 H ABG O2 Saturation 95 ABG Base Excess 8 H Assessment & Plan A&P Narrative # Dysphagia # Abnormal weight loss Plan tentatively scheduled for fiberoptic esophagogastroduodenoscopy with possible biopsy possible Therapeutic intervention under intravenous moderate sedation of course it all depends upon his respiratory status in the FiO2 of the oxygen Other medical problems include # Atrial fibrillation on Eliquis # Essential hypertension # Diabetes mellitus type 2 # BPH Thank you very much for the opportunity to participate in the care of this patient Time Spent With Patient Time: Total time spent is greater than 50% in coordination of care (as documented) at patient's floor/unit and/or counseling patient:
[2024-10-20] MEDS: MELATONIN 3 MG TABLET PO (21:27)
[2024-10-21] VITALS (16 sets, daily range): BP systolic 116–175; BP diastolic 51–83; PULSE 70–95; RESP 20–41; TEMP 36.2–37.1; O2SAT 94–98
[2024-10-21] MEDS: ACETAMINOPHEN 325 MG TABLET 650 MG PO (00:13)
[2024-10-21] MEDS: ALBUTEROL/IPRATROPIUM (Duoneb) RT SOL 3 ML NEBU INH ×4 (00:33→18:52)
[2024-10-21] MEDS: CEFEPIME INJ 2 GM in SODIUM CHLORIDE 0.9% 50 ML IV ×3 (05:40→21:02)
[2024-10-21] MEDS: BENZONATATE 100 MG CAPSULE PO ×3 (05:40→21:01)
[2024-10-21 06:00] LABS: Basophils % (Auto) 0 % (0-2.5); Eosinophils % (Auto) 0 % (0-10); Hematocrit 38.5 % (41.0-53.0); Hemoglobin 12.8 g/dL (13.5-16.0); Immature Granulocytes % (Auto) 1 % (0-0); Immature Granulocytes Auto 0.03 Thou/mm3 (0.00-0.00); Lymphocytes # (Auto) 0.5 Thou/mm3 (1.0-4.8); Lymphocytes % (Auto) 8 % (10-50); Mean Corpuscular HGB Conc 33.2 g/dl (31.0-37.0); Mean Corpuscular Hemoglobin 31.6 pg (25.0-35.0); Mean Corpuscular Volume 95 fL (80-100); Monocytes # (Auto) 0.2 Thou/mm3 (0.0-0.8); Monocytes % (Auto) 4 % (0-12); Neutrophils # (Auto) 5.9 Thou/mm3 (1.8-7.7); Neutrophils % (Auto) 88 % (37-80); Nucleated Red Blood Cell % 0 /100 WBC (0); Platelet Count 143 Thou/mm3 (140-440); Red Blood Count 4.05 Miln/mm3 (4.50-5.90); White Blood Count 6.7 Thou/mm3 (3.8-10.6)
[2024-10-21 06:28] LABS: Alanine Aminotransferase 26 U/L (10-49); Albumin, Serum 2.9 gm/dL (3.4-4.8); Albumin/Globulin Ratio 1.1 (1.2-2.2); Alkaline Phosphatase 232 U/L (46-116); Anion Gap 7 (7-16); Aspartate Amino Transferase 26 U/L (0-34); BUN/Creatinine Ratio 39 Ratio (12-20); Bilirubin,Total 0.4 mg/dL (0.3-1.2); Blood Urea Nitrogen 35 mg/dL (9-23); Calcium 7.7 mg/dL (8.3-10.6); Calcium (Corrected) 8.6 mg/dL (8.5-10.1); Carbon Dioxide 31.8 mMol/L (20.0-31.0); Chloride 99 mMol/L (98-107); Creatinine (Component) 0.9 mg/dL (0.6-1.3); Estimated Creatinine Clearance 72.5 mL/min (>60); Globulin 2.6 gm/dL (2.3-3.5); Glucose 167 mg/dL (74-106); Osmolality,Calculated 287 (275-295); Sodium 138 mMol/L (136-145); Total Protein 5.5 gm/dL (5.7-8.2); eGFR > 60 See Note
--- NOTE | 2024-10-21 07:54 | XR_ITS ---
Examination: AP chest single view Technique one AP portable semiupright chest single view Exam date and time: October 21, 2024 0807 hrs. Comparison October 19, 2024 Indications: ICU inpatient with hypoxia Findings: Pulmonary nodular metastatic disease Bilateral diffuse pneumonia Mild enlargement cardiac contour prominent vascular congestion Severe osteopenia Impression: Diffuse pulmonary nodular metastatic disease Diffuse bilateral pneumonia Mild associated heart failure
[2024-10-21] MEDS: APIXABAN 2.5 MG TABLET 5 MG PO ×2 (09:08→20:50)
[2024-10-21] MEDS: DEXAMETHASONE INJ 20 MG in SODIUM CHLORIDE 0.9% 50 ML 104 MG IV (09:09)
[2024-10-21] MEDS: PANTOPRAZOLE INJ 40 MG VIAL IV ×2 (09:09→20:50)
[2024-10-21] MEDS: ASPIRIN EC 81 MG TABEC PO (09:09)
[2024-10-21] MEDS: FINASTERIDE 5 MG TABLET PO (09:09)
[2024-10-21] MEDS: POLYETHYLENE GLYCOL 17 GM PACKET PO (09:10)
[2024-10-21] MEDS: BALSAM PERU/CASTOR OIL (Venelex) 60 GM TUBE TOP ×2 (09:10→20:53)
[2024-10-21] MEDS: SENNA TABLET 1 TAB PO (09:10)
--- NOTE | 2024-10-21 14:03 | ESPR_ITS ---
Documentation for date of: 10/21/24 Subjective Subjective Interval history: Patient evaluated bedside, currently in ICU due to telemetry capacity overflow, on high flow nasal cannula oxygen, saturating well. Oxygen requirement marginally decreased to 30 L/min compared to 35 L/min. Patient subjectively feeling better, ordered chest x-ray,Which shows diffuse pulmonary nodule of metastatic disease and diffuse bilateral pneumonia. Also noted respiratory rate in the high 30s, daughters were present at the bedside, we explained the diagnosis of ARDS, patient may require intubation and mechanical ventilation due to increased work of breathing and/or worsening hypoxia. Later in the day,on daughter Maral's request spoke to family friend Dr. Beckford, gave brief clinical summary and explored further treatment options, family requested to initiate transfer for pulmonology service to [facility], transfer nurse Barbara was updated. Exam Vital Signs Temp Pulse Resp BP Pulse Ox O2 Del Method O2 Flow Rate 98.7 F 81 20 134/63 H 97 High Flow Nasal Cannula 30 10/21/24 12:00 10/21/24 12:49 10/21/24 12:49 10/21/24 12:00 10/21/24 12:49 10/21/24 12:00 10/21/24 12:49 FiO2 50 10/21/24 12:49 Narrative Exam GENERAL: A&Ox3 . Awake, Not in acute distress NEURO: no focal neurological deficits HEENT: Atraumatic, Normocephalic. mucous membranes moist. Eyes open, symmetrical, & clear HEART: Normal Heart Sounds LUNGS: Clear breath sounds bilaterally ABDOMEN: soft, non-distended, non-tender, bowel sounds heard, no guarding or rebound tenderness SKIN: No Rash or ecchymoses, decubitus ulcer on buttocks EXTREMITIES:no pitting edema bilaterally resolved, no tenderness Objective Labs 10/21/24 04:42 10/21/24 04:42 Labs: Laboratory Results - last 24 hr 10/21/24 04:42 WBC 6.7 RBC 4.05 L Hgb 12.8 L Hct 38.5 L MCV 95 MCH 31.6 MCHC 33.2 RDW Std Deviation 50.0 H Plt Count 143 D Neut % (Auto) 88 H Lymph % (Auto) 8 L [place] % (Auto) 4 Eos % (Auto) 0 Baso % (Auto) 0 Neut # (Auto) 5.9 Lymph # (Auto) 0.5 L [place] # (Auto) 0.2 Eos # (Auto) 0.0 Baso # (Auto) 0.0 Immature Gran # (Auto) 0.03 H Absolute Nucleated RBC 0.00 Immature Gran % 1 H Nucleated RBC % 0 Sodium 138 Potassium 4.0 Chloride 99 Carbon Dioxide 31.8 H Anion Gap 7 BUN 35 H Creatinine 0.9 Estim Creat Clear Calc 72.5 eGFR > 60 BUN/Creatinine Ratio 39 H Glucose 167 H Calculated Osmolality 287 Calcium 7.7 L Corrected Calcium 8.6 Total Bilirubin 0.4 AST 26 ALT 26 Alkaline Phosphatase 232 H Total Protein 5.5 L Albumin 2.9 L Globulin 2.6 Albumin/Globulin Ratio 1.1 L ABG Interpretation ABG results: 10/19/24 08:50 ABG pH 7.40 ABG pCO2 55 H ABG pO2 72 L ABG HCO3 34 H ABG O2 Saturation 95 ABG Base Excess 8 H Quality Measures Quality Measures VTE prophylaxis Advance care planning discussed with:: patient and child Assessment & Plan Assessment Current Active Medications: Generic Name Dose Route Start Last Admin Trade Name Freq PRN Reason Stop Dose Admin Acetaminophen 650 mg 10/13/24 21:44 10/21/24 00:13 Acetaminophen 325 Mg Tablet PO 11/12/24 21:43 650 mg Q6H PRN Administration Fever >100.4 or Pain 1-10 Albuterol/Ipratropium 3 ml 10/16/24 19:00 10/21/24 12:49 Albuterol/Ipratropium (Duoneb) Rt Diana 3 Ml Nebu INH 11/15/24 18:59 3 ml Q6HRRT MARCY Administration Apixaban 5 mg 10/15/24 21:00 10/21/24 09:08 Apixaban 2.5 Mg Tablet PO 11/14/24 20:59 5 mg BID MARCY Administration Aspirin 81 mg 10/14/24 09:00 10/21/24 09:09 Aspirin Ec 81 Mg Tabec PO 11/13/24 08:59 81 mg DAILY MARCY Administration Balsam Magda/[place] Oil 0 gm 10/16/24 21:00 10/21/24 09:10 Balsam [place]/[employer] [place] Oil (Venelex) 60 Gm Tube TOP 11/15/24 20:59 1 applicatio BID MARCY Administration Benzonatate 100 mg 10/16/24 22:00 10/21/24 05:40 Benzonatate 100 Mg Capsule PO 11/15/24 21:59 100 mg TID MARCY Administration Protocol Bisacodyl 10 mg 10/13/24 21:44 10/17/24 00:52 Bisacodyl 5 Mg Tabec PO 11/12/24 21:43 10 mg QDAY PRN Administration CONSTIPATION Protocol Famotidine 20 mg 10/13/24 23:23 Famotidine 20 Mg Tablet PO 11/12/24 23:22 DAILY PRN GERD Finasteride 5 mg 10/15/24 09:00 10/21/24 09:09 Finasteride 5 Mg Tablet PO 11/14/24 08:59 5 mg QDAY MARCY Administration Furosemide 40 mg 10/18/24 21:00 10/20/24 08:53 Furosemide Inj 10 Mg/Ml 4ml Vial IVP 11/17/24 20:59 40 mg BID MARCY Administration Guaifenesin/Dextromethorphan 1 each 10/15/24 09:51 10/18/24 21:19 Guaifenesin/Dm Tablet PO 11/14/24 09:50 1 each BID PRN Administration COUGH Cefepime HCl 2 gm/ Sodium 50 mls @ 100 mls/hr 10/16/24 14:30 10/21/24 05:40 Chloride IV 10/23/24 13:31 100 mls/hr Q8HR MARCY Administration Dexamethasone Sodium Phosphate 52 mls @ 104 mls/hr 10/21/24 09:00 10/21/24 09:09 20 mg/ Sodium Chloride IV 10/24/24 09:29 104 mls/hr QDAY MARYC Administration Lidocaine 1 patch 10/15/24 14:45 Lidocaine 5% 1 Patch TOP 11/14/24 14:44 DAILY PRN RIGHT SHOULDER PAIN Melatonin 3 mg 10/16/24 21:00 10/20/24 21:27 Melatonin 3 Mg Tablet PO 11/15/24 20:59 3 mg HS MARCY Administration Ondansetron HCl 4 mg 10/13/24 21:44 Ondansetron Inj 2 Mg/Ml Inj 2 Ml IV 11/12/24 21:43 Q6H PRN NAUSEA OR VOMITING Protocol Pantoprazole Sodium 40 mg 10/17/24 21:00 10/21/24 09:09 Pantoprazole Inj 40 Mg Vial IV 11/16/24 20:59 40 mg BID MARCY Administration Polyethylene Glycol 17 gm 10/15/24 12:15 10/21/24 09:10 Polyethylene Glycol 17 Gm Packet PO 11/14/24 12:14 17 gm QDAY MARCY Administration Sennosides 1 tab 10/15/24 12:15 10/21/24 09:10 Senna Tablet PO 11/14/24 12:14 1 tab QDAY MARCY Administration Protocol Plan Mr. Scott is a 84-year-old male with past medical history of afib on Eliquis, hypertension, prediabetes, and BPH who presented to the ED on 10/13/2024 with 6 weeks of cough, SOB , worsening generalized body weakness and bilateral leg swelling for the last 3 days. Patient is admitted to the hospital for acute hypoxic respiratory failure secondary to pneumonia and CHF exacerbation. #Concern for ARDS #Pneumonia secondary to gram-negative bacilli #Diffuse pulmonary metastatic disease #Acute hypoxic respiratory failure Bilateral pneumonia?cocci negative, sputum culture positive for gram-negative rods, antibiotics ceftriaxone and azithromycin discontinued, started on cefepime 10/16/2024, Sputum culture produced Serratia marcescens and E. coli, sensitive to cefepime, negative blood cultures to date. Also possible metastatic disease, unknown primary. ARDS?diffuse bilateral infiltrates, less likely CHF, PF ratio< 300 increased work of breathing, respiratory rate in the 30s, increasing oxygen requirements, currently on high flow nasal cannula oxygen 30 L/min. ? Cefepime started 10/16- ? Dexamethasone iv 20mg qday started 10/20/2024 for ARDS ? Will follow chest x-ray and ABG in the a.m. ? Transfer process initiated due to family's concern for lack of pulmonology service at the moment. # Concern for metastatic malignancy # Unknown primary location -Patient does not have a known history of cancer however father had esophageal cancer, Patient states his last colonoscopy was less than 3 years ago and no significant findings or polyps were noted,Patient recently lost 30 pounds in 2 months, CTA of chest- Extensive nodular parenchymal disease throughout both lungs, the subcentimeter bilateral nodules noted could be infectious in etiology or represent pulmonary nodular metastatic disease, clinical correlation advised and follow-up recommended post treatment for pneumonia. 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 Metastatic disease?CT-guided lung biopsy was done on 10/18/2024 of right upper lobe pulmonary nodule, spoke to pathologist Dr. Yao preliminary pathology report is positive for malignant cells,unable to determine primary malignancy, final report to follow after special stains, likely metastatic disease as patient has osteolytic lesion in thoracic spine and numerous pulmonary nodules. ? Pending final pathology report, spoke to Dr. Santos, heme-onc, who said they would see the patient at cancer treatment center on outpatient once acute infection is resolved. #CHF exacerbation ?vineyard supervisor Dr. Grider is consulted following the patient recommended IV diuresis and antibiotics. Adequate diuresis achieved, bilateral lower extremity swelling improved, patient developed contraction alkalosis, noted increasing BUN, clinically dehydrated, will hold off on diuresis for now, continued worsening of chest x-ray and increasing oxygen requirements likely secondary to ARDS, less likely acute pulmonary edema secondary to CHF. #Concern for PE- ruled out Negative CTA, of note patient was inadequately anticoagulated on Eliquis 2.5, does not meet criteria for low-dose Eliquis, started on full dose anticoagulation Eliquis 5 mg twice daily. #Generalized weakness #Hypercalcemia- resolved -on admission Corrected calcium on labs is 12.3, patient denies any prior knowledge of hypercalcemia and cannot recall if he takes any calcium supplements -Elevated corrected calcium 12.7. On the patient's home medications list brought in by family, listed is Vitamin D3 125 mcg (5000 IU) qday. Likely secondary to Vitamin D hypervitaminosis if he is still actively taking it. 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 He feels like someone is stuck in his throat -Pantoprazole 40 mg PO qday -Famotidine 20 mg PO qday prn if symptoms persist -Speech evaluation completed -Consult GI, appreciate recommendations -EGD done findings are consistent with esophageal stricture, esophagitis, gastritis #BPH -Resume home finasteride 5 Mg daily and tamsulosin 0.4 Mg p.o. daily Health Maintenance Disposition: telemetry for acute hypoxic respiratory failure secondary to bilateral pneumonia and CHF exacerbation, metastatic malignant cells on lung biopsy DVT Prophylaxis: Patient is on home Eliquis GI Prophylaxis: Pantoprozol-40 IV Qday Diet: Cardiac Diet Lines: Peripheral lines Code status: Full Assessment and plan discussed with my attending physician Dr. Ailyn Marcelo (PGY-2)- Internal medicine resident Attending Provider Attestation/Addendum Patient seen and examined. He is more alert today. He is less tachypneic. Still on high flow 30%. Family requesting transfer for pulmonary evaluation. Pending lung biopsy report. Discussed with housestaff
[2024-10-21 15:35] LABS: (1-3)-B-D-glucan* <31 pg/mL; Sm Antibody <1.0 NEG AI (<1.0 NEGATIVE)
--- NOTE | 2024-10-21 16:41 | PD.IMPROG ---
Documentation for date of: 10/21/24 Subjective Subjective Interval history: Patient evaluated on high flow nasal cannula no difficulty swallowing Exam Vital Signs Temp Pulse Resp BP Pulse Ox O2 Del Method O2 Flow Rate 97.4 F 75 23 H 116/51 L 95 High Flow Nasal Cannula 30 10/21/24 16:00 10/21/24 16:00 10/21/24 16:00 10/21/24 16:00 10/21/24 16:00 10/21/24 16:00 10/21/24 16:00 FiO2 50 10/21/24 16:00 Objective Labs 10/21/24 04:42 10/21/24 04:42 Labs: Laboratory Results - last 24 hr 10/21/24 04:42 WBC 6.7 RBC 4.05 L Hgb 12.8 L Hct 38.5 L MCV 95 MCH 31.6 MCHC 33.2 RDW Std Deviation 50.0 H Plt Count 143 D Neut % (Auto) 88 H Lymph % (Auto) 8 L [place] % (Auto) 4 Eos % (Auto) 0 Baso % (Auto) 0 Neut # (Auto) 5.9 Lymph # (Auto) 0.5 L [place] # (Auto) 0.2 Eos # (Auto) 0.0 Baso # (Auto) 0.0 Immature Gran # (Auto) 0.03 H Absolute Nucleated RBC 0.00 Immature Gran % 1 H Nucleated RBC % 0 Sodium 138 Potassium 4.0 Chloride 99 Carbon Dioxide 31.8 H Anion Gap 7 BUN 35 H Creatinine 0.9 Estim Creat Clear Calc 72.5 eGFR > 60 BUN/Creatinine Ratio 39 H Glucose 167 H Calculated Osmolality 287 Calcium 7.7 L Corrected Calcium 8.6 Total Bilirubin 0.4 AST 26 ALT 26 Alkaline Phosphatase 232 H Total Protein 5.5 L Albumin 2.9 L Globulin 2.6 Albumin/Globulin Ratio 1.1 L Impressions Impression: # Proximal esophageal stricture status post guidewire savory endoscopic dilatation doing well # acute hypoxic respiratory failure due to pneumonia on high flow oxygen ABG Interpretation ABG results: 10/19/24 08:50 ABG pH 7.40 ABG pCO2 55 H ABG pO2 72 L ABG HCO3 34 H ABG O2 Saturation 95 ABG Base Excess 8 H Assessment & Plan A&P Narrative # Dysphagia # Abnormal weight loss Plan tentatively scheduled for fiberoptic esophagogastroduodenoscopy with possible biopsy possible Therapeutic intervention under intravenous moderate sedation of course it all depends upon his respiratory status in the FiO2 of the oxygen Other medical problems include # Atrial fibrillation on Eliquis # Essential hypertension # Diabetes mellitus type 2 # BPH Thank you very much for the opportunity to participate in the care of this patient Time Spent With Patient Time: Total time spent is greater than 50% in coordination of care (as documented) at patient's floor/unit and/or counseling patient:
--- NOTE | 2024-10-21 17:48 | PC.CM ---
Addendum entered by Marjorie Ruiz RN 10/22/24 09:44: [address] Olivarez he states patient has extensive cancer with ARDS and Pneumonia and needs pulmonology services 0934 Spoke to Ema at [facility] who states they are going to deny due to capacity 0940 Charge nurse Stephania spoke to patients family to make sure they are ok with transfer to other facility they said they will talk about it and get back to transfer nurse, Dr Olivarez made aware, he states they will talk with family Original Note: 1755 I spoke to Jimena at [facility] and she states they are at capacity, but we could call back tomorrow to check on bed availability. I started tranfer packet. I did not ask radiology to make a CD. 1530 I received a referral to transfer patient for pulmonary services due to pneumonia and ARDS. Dr. Marcelo stated they are requesting the transfer but family requested we sent to [facility]. I reached out to [facility] and I spoke to Jimena. She asked that I fax over information.
[2024-10-21] MEDS: MELATONIN 3 MG TABLET PO (20:50)
[2024-10-21] MEDS: guaiFENesin/DM TABLET 1 EACH PO (21:02)
[2024-10-22] VITALS (14 sets, daily range): BP systolic 133–147; BP diastolic 61–85; PULSE 65–90; RESP 20–39; TEMP 36.2–37.6; O2SAT 92–97; BMI 32.4
[2024-10-22] MEDS: ACETAMINOPHEN 325 MG TABLET 650 MG PO ×2 (00:07→22:37)
[2024-10-22] MEDS: LIDOCAINE 5% 1 PATCH TOP (00:08)
[2024-10-22] MEDS: ALBUTEROL/IPRATROPIUM (Duoneb) RT SOL 3 ML NEBU INH ×4 (01:58→19:10)
--- NOTE | 2024-10-22 05:00 | XR_ITS ---
Examination: AP chest single view Technique one AP portable semiupright chest single view Exam date and time: October 22, 2024 0545 hours Comparison October 21, 2024 INDICATIONS: Difficulty breathing this week, pneumonia ARDS on earlier chest imaging FINDINGS: Extensive bilateral lung opacity Minor prominence left ventricle No pneumothorax Prominent osteopenia IMPRESSION: Extensive bilateral pneumonia ARDS pattern
[2024-10-22 05:08] LABS: Base Excess 8 (-3-3); HCO3 33 mEq/L (20-26); Inspired Oxygen, FIO2 50 %; O2 Saturation 96 % (91-98); PCO2 48 mmHg (32.0-48.0); PO2 73 mmHg (83-108); pH, Arterial 7.45 (7.35-7.45)
[2024-10-22 05:15] LABS: Allen Test Performed/OK; Puncture Site Left Radial
[2024-10-22] MEDS: CEFEPIME INJ 2 GM in SODIUM CHLORIDE 0.9% 50 ML IV ×3 (05:28→21:32)
[2024-10-22] MEDS: BENZONATATE 100 MG CAPSULE PO ×3 (05:28→21:30)
[2024-10-22 05:53] LABS: Basophils % (Auto) 0 % (0-2.5); Eosinophils % (Auto) 0 % (0-10); Hematocrit 38.6 % (41.0-53.0); Hemoglobin 12.7 g/dL (13.5-16.0); Immature Granulocytes % (Auto) 1 % (0-0); Immature Granulocytes Auto 0.05 Thou/mm3 (0.00-0.00); Lymphocytes # (Auto) 0.6 Thou/mm3 (1.0-4.8); Lymphocytes % (Auto) 6 % (10-50); Mean Corpuscular HGB Conc 32.9 g/dl (31.0-37.0); Mean Corpuscular Hemoglobin 31.5 pg (25.0-35.0); Mean Corpuscular Volume 96 fL (80-100); Monocytes # (Auto) 0.5 Thou/mm3 (0.0-0.8); Monocytes % (Auto) 6 % (0-12); Neutrophils # (Auto) 8.4 Thou/mm3 (1.8-7.7); Neutrophils % (Auto) 88 % (37-80); Nucleated Red Blood Cell % 0 /100 WBC (0); Platelet Count 159 Thou/mm3 (140-440); RDW Standard Deviation 50.2 fL (35.1-43.9); Red Blood Count 4.03 Miln/mm3 (4.50-5.90); White Blood Count 9.5 Thou/mm3 (3.8-10.6)
[2024-10-22 06:33] LABS: Alanine Aminotransferase 33 U/L (10-49); Albumin/Globulin Ratio 1.2 (1.2-2.2); Alkaline Phosphatase 223 U/L (46-116); Anion Gap 7 (7-16); Aspartate Amino Transferase 30 U/L (0-34); BUN/Creatinine Ratio 48 Ratio (12-20); Bilirubin,Total 0.5 mg/dL (0.3-1.2); Blood Urea Nitrogen 38 mg/dL (9-23); C-Reactive Protein 2.3 mg/dL (0.0-0.9); Calcium 7.9 mg/dL (8.3-10.6); Calcium (Corrected) 8.7 mg/dL (8.5-10.1); Carbon Dioxide 30.9 mMol/L (20.0-31.0); Chloride 99 mMol/L (98-107); Creatinine (Component) 0.8 mg/dL (0.6-1.3); Estimated Creatinine Clearance 81.1 mL/min (>60); Globulin 2.6 gm/dL (2.3-3.5); Glucose 163 mg/dL (74-106); Osmolality,Calculated 286 (275-295); Potassium 4.1 mMol/L (3.4-5.1); Sodium 137 mMol/L (136-145); Total Protein 5.6 gm/dL (5.7-8.2); eGFR > 60 See Note
[2024-10-22 06:35] LABS: ANA Screen, IFA NEGATIVE (NEGATIVE); Protein, total, serum 5.1 g/dL (6.1-8.1)
[2024-10-22 06:37] LABS: Vitamin D,1,25 (OH)2,Total 18 pg/mL (18-72); Vitamin D2, 1,25 (OH)2 <8 pg/mL; Vitamin D3, 1,25 (OH)2 18 pg/mL
[2024-10-22 06:47] LABS: DNA (ds) Antibody* <1 IU/mL; Interpretation NEGATIVE; Scl-70 Antibody* <1.0 NEG AI (<1.0 NEGATIVE); Sm/RNP Antibody <1.0 NEG AI (<1.0 NEGATIVE)
[2024-10-22] MEDS: FINASTERIDE 5 MG TABLET PO (08:05)
[2024-10-22] MEDS: ASPIRIN EC 81 MG TABEC PO (08:05)
[2024-10-22] MEDS: PANTOPRAZOLE INJ 40 MG VIAL IV ×2 (08:05→21:29)
[2024-10-22] MEDS: SENNA TABLET 1 TAB PO (08:05)
[2024-10-22] MEDS: APIXABAN 2.5 MG TABLET 5 MG PO ×2 (08:05→21:29)
[2024-10-22] MEDS: POLYETHYLENE GLYCOL 17 GM PACKET PO (08:06)
[2024-10-22] MEDS: BALSAM PERU/CASTOR OIL (Venelex) 60 GM TUBE TOP ×2 (08:06→21:30)
[2024-10-22] MEDS: DEXAMETHASONE INJ 20 MG in SODIUM CHLORIDE 0.9% 50 ML 104 MG IV (08:06)
[2024-10-22] MEDS: INSULIN LISPRO (AdmeLOG) 1 UNIT/0.01 ML UNIT SC ×3 (11:30→21:31)
--- NOTE | 2024-10-22 12:39 | PC.CC ---
Addendum entered by Ayaan Garcia RN 10/22/24 15:24: 1436 received call from bedside nurse that pt daughter Judi wants her to call me. Per nurse, pt daughter stated that she doesn't know the name of the drLing but it's the hospitalist team. 1410 While I am waiting to hear from Dr. Meade. Pt daughter Judi stopped me in the hallway and wants me to speak to the family member who is in [place]. I explained her that I can't disclose pt information to anyone other than pt and POC. She started showing me the text from group chat, she stated her relative spoke to someone at [facility] and a dr. is accepting the pt. I explained her I am waiting for my drLing's orders but I can get Dr. name and speciality of the drLing and I can inform my Dr. She stated she doesn't know either one. I informed her to get the information and once she has it to talk to pt bedside nurse and she can call me. Addendum entered by Ayaan Garcia RN 10/22/24 15:08: 1310 I spoke to pt and daughters at bedside for about 20mins. I informed that Dr. Meade is going to call Dr. Richardson recommendations and then he will let me know if there is need for transfer. But family is requesting the transfer. Explained how the transfer process work. If a patient is receiving the same level of care at [facility] as they would at another hospital, it is not classified as a higher level of care/ HLOC; rather, it is regarded as a lateral transfer. Pt and both daughter understand explanation. 1249 I called and spoke to Dr. Meade regarding the plan of care. Dr. Meade informed me that he is going to call Dr. Richardson electronic security technician for his recommendations and then he will let me know if there is need for transfer. Addendum entered by Ayaan Garcia RN 10/22/24 14:53: 1233 received call from Jim Torres that pt family has questions regarding transfer and want to speak to me. Addendum entered by Ayaan Garcia RN 10/22/24 14:51: 1040 received handoff from Terrell transfer nurse that transfer is on hold for now. Original Note: [address] Olivarez he states patient has extensive cancer with ARDS and Pneumonia and needs pulmonology services 0934 Spoke to Ema at [facility] who states they are going to deny due to capacity 0940 Charge nurse Stephania spoke to patients family to make sure they are ok with transfer to other facility they said they will talk about it and get back to transfer nurse, Dr Olivarez made aware, he states they will talk with family
--- NOTE | 2024-10-22 15:36 | ESPR_ITS ---
Documentation for date of: 10/22/24 Subjective Subjective Interval history: 10/22/2024: Overnight no acute events to report. Patient seen and examined in hospital bed appears to have made significant improvement in oxygenation. Patient currently on high flow nasal cannula 25 L with 40% FiO2 and chest x-ray obtained shows improvement in interstitial markings bilaterally. Concerning patient's long-term outlook; spoke with pulmonology specialist who recommended the patient be started on hydrocortisone for 3 days along with a 1 week taper afterwards. Per pulmonology specialist, there is no indication to transfer the patient for pulmonology coverage as there are no acute interventions necessary. 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 Pending final path report from GI endoscopic results. Patient's family made aware of recommendations as outlined above and family friends (physician) made aware as well. Goal remains to wean the patient off oxygen supplementation and for him to follow-up with oncology outpatient. Exam Vital Signs Temp Pulse Resp BP Pulse Ox O2 Del Method O2 Flow Rate 97.8 F 89 24 H 142/69 H 94 L High Flow Nasal Cannula 10/22/24 08:00 10/22/24 14:05 10/22/24 14:05 10/22/24 08:00 10/22/24 14:05 10/22/24 08:00 10/22/24 14:05 FiO2 40 10/22/24 14:05 Narrative Exam GENERAL: A&Ox3 . Awake, Not in acute distress NEURO: no focal neurological deficits HEENT: Atraumatic, Normocephalic. mucous membranes moist. Eyes open, symmetrical, & clear HEART: Normal Heart Sounds LUNGS: Clear breath sounds bilaterally ABDOMEN: soft, non-distended, non-tender, bowel sounds heard, no guarding or rebound tenderness SKIN: No Rash or ecchymoses, decubitus ulcer on buttocks EXTREMITIES:no pitting edema bilaterally resolved, no tenderness Objective Labs 10/22/24 04:40 10/22/24 04:40 Labs: Laboratory Results - last 24 hr 10/13/24 10/15/24 10/16/24 18:23 15:23 06:15 WBC RBC Hgb Hct MCV MCH MCHC RDW Std Deviation Plt Count Neut % (Auto) Lymph % (Auto) [place] % (Auto) Eos % (Auto) Baso % (Auto) Neut # (Auto) Lymph # (Auto) [place] # (Auto) Eos # (Auto) Baso # (Auto) Immature Gran # (Auto) Absolute Nucleated RBC Immature Gran % Nucleated RBC % Puncture Site ABG pH ABG pCO2 ABG pO2 ABG HCO3 ABG O2 Saturation ABG Base Excess FiO2 Sodium Potassium Chloride Carbon Dioxide Anion Gap BUN Creatinine Estim Creat Clear Calc eGFR BUN/Creatinine Ratio Glucose Calculated Osmolality Calcium Corrected Calcium Total Bilirubin AST ALT Alkaline Phosphatase C-Reactive Prot, Quant Total Protein 5.1 L Albumin 2.4 L Globulin Albumin/Globulin Ratio Hxlqr-2-Rommimbvg 0.4 H Aqurz-6-Jsmcwghdc 0.9 Izne-3-Kdmkbksx 0.3 L Ixbs-0-Fojaaklq 0.3 Gamma Globulins 0.8 Abnorm Protein Band 1 TNP Abnorm Protein Band 2 TNP Abnorm Protein Band 3 TNP PEP Interpretation SEE NOTE Vit D 1,25-Dihyd Total 18 1,25 Dihydroxy Vit D2 <8 1,25 Dihydroxy Vit D3 18 Serum Immunofixation SEE NOTE Urine Immunofixation SEE NOTE REX Screen NEGATIVE REX Titer TNP REX Titer 2 TNP REX Titer 3 TNP REX Pattern TNP REX Pattern 2 TNP REX Pattern 3 TNP Sm (Chavira) Antibody <1.0 NEG SM/[employer] IgG Antibody <1.0 NEG Scl-70 Antibody <1.0 NEG Double Strand DNA Ab <1 Beta-(1,3)-D-Glucan <31 B-(1,3)-D-Glucan Intrp NEGATIVE Misc Test Result 10/16/24 10/22/24 10/22/24 11:40 04:40 04:43 WBC 9.5 D RBC 4.03 L Hgb 12.7 L Hct 38.6 L MCV 96 MCH 31.5 MCHC 32.9 RDW Std Deviation 50.2 H Plt Count 159 Neut % (Auto) 88 H Lymph % (Auto) 6 L [place] % (Auto) 6 Eos % (Auto) 0 Baso % (Auto) 0 Neut # (Auto) 8.4 H Lymph # (Auto) 0.6 L [place] # (Auto) 0.5 Eos # (Auto) 0.0 Baso # (Auto) 0.0 Immature Gran # (Auto) 0.05 H Absolute Nucleated RBC 0.00 Immature Gran % 1 H Nucleated RBC % 0 Puncture Site Left Radial ABG pH 7.45 ABG pCO2 48 ABG pO2 73 L ABG HCO3 33 H ABG O2 Saturation 96 ABG Base Excess 8 H FiO2 50 Sodium 137 Potassium 4.1 Chloride 99 Carbon Dioxide 30.9 Anion Gap 7 BUN 38 H Creatinine 0.8 Estim Creat Clear Calc 81.1 eGFR > 60 BUN/Creatinine Ratio 48 H Glucose 163 H Calculated Osmolality 286 Calcium 7.9 L Corrected Calcium 8.7 Total Bilirubin 0.5 AST 30 ALT 33 Alkaline Phosphatase 223 H C-Reactive Prot, Quant 2.3 H Total Protein 5.6 L Albumin 3.0 L Globulin 2.6 Albumin/Globulin Ratio 1.2 Utctb-7-Hutgjfdqu Hgcuq-0-Wmcvosxwr Bvkp-2-Orgfmqyo Aqyo-3-Qvhlxzup Gamma Globulins Abnorm Protein Band 1 Abnorm Protein Band 2 Abnorm Protein Band 3 PEP Interpretation Vit D 1,25-Dihyd Total 1,25 Dihydroxy Vit D2 1,25 Dihydroxy Vit D3 Serum Immunofixation Urine Immunofixation REX Screen REX Titer REX Titer 2 REX Titer 3 REX Pattern REX Pattern 2 REX Pattern 3 Sm (Chavira) Antibody SM/[employer] IgG Antibody Scl-70 Antibody Double Strand DNA Ab Beta-(1,3)-D-Glucan B-(1,3)-D-Glucan Intrp Misc Test Result See Sep Rpt ABG Interpretation ABG results: 10/19/24 10/22/24 08:50 04:43 ABG pH 7.40 7.45 ABG pCO2 55 H 48 ABG pO2 72 L 73 L ABG HCO3 34 H 33 H ABG O2 Saturation 95 96 ABG Base Excess 8 H 8 H Quality Measures Quality Measures VTE prophylaxis Advance care planning discussed with:: patient, spouse and child Assessment & Plan Assessment Current Active Medications: Generic Name Dose Route Start Last Admin Trade Name Freq PRN Reason Stop Dose Admin Acetaminophen 650 mg 10/13/24 21:44 10/22/24 00:07 Acetaminophen 325 Mg Tablet PO 11/12/24 21:43 650 mg Q6H PRN Administration Fever >100.4 or Pain 1-10 Albuterol/Ipratropium 3 ml 10/16/24 19:00 10/22/24 12:42 Albuterol/Ipratropium (Duoneb) Rt Diana 3 Ml Nebu INH 11/15/24 18:59 3 ml Q6HRRT MARCY Administration Apixaban 5 mg 10/15/24 21:00 10/22/24 08:05 Apixaban 2.5 Mg Tablet PO 11/14/24 20:59 5 mg BID MARCY Administration Aspirin 81 mg 10/14/24 09:00 10/22/24 08:05 Aspirin Ec 81 Mg Tabec PO 11/13/24 08:59 81 mg DAILY MARCY Administration Balsam [place] Oil 0 gm 10/16/24 21:00 10/22/24 08:06 Balsam [place] Oil (Venelex) 60 Gm Tube TOP 11/15/24 20:59 1 applicatio BID MARCY Administration Benzonatate 100 mg 10/16/24 22:00 10/22/24 13:18 Benzonatate 100 Mg Capsule PO 11/15/24 21:59 100 mg TID MARCY Administration Protocol Bisacodyl 10 mg 10/13/24 21:44 10/17/24 00:52 Bisacodyl 5 Mg Tabec PO 11/12/24 21:43 10 mg QDAY PRN Administration CONSTIPATION Protocol Dextrose 25 ml 10/22/24 08:06 Dextrose 50%-Water Inj 50 Ml Syringe IV 11/21/24 08:05 Q15MIN PRN BG 50-70 responsive npo pt Dextrose 50 ml 10/22/24 08:06 Dextrose 50%-Water Inj 50 Ml Syringe IV 11/21/24 08:05 Q15MIN PRN BG <50 OR BG <70 & pt unresponsive Famotidine 20 mg 10/13/24 23:23 Famotidine 20 Mg Tablet PO 11/12/24 23:22 DAILY PRN GERD Finasteride 5 mg 10/15/24 09:00 10/22/24 08:05 Finasteride 5 Mg Tablet PO 11/14/24 08:59 5 mg QDAY MARCY Administration Furosemide 40 mg 10/18/24 21:00 10/20/24 08:53 Furosemide Inj 10 Mg/Ml 4ml Vial IVP 11/17/24 20:59 40 mg BID MARCY Administration Glucagon 1 mg 10/22/24 08:06 Glucagon Inj 1 Mg Vial IM Q15MIN PRN BG <70, and no IV access Guaifenesin/Dextromethorphan 1 each 10/15/24 09:51 10/21/24 21:02 Guaifenesin/Dm Tablet PO 11/14/24 09:50 1 each BID PRN Administration COUGH Hydrocortisone Sodium Succinate 200 mg 10/23/24 09:00 Hydrocortisone Sod Succ Inj 100 Mg Vial IV 10/26/24 08:59 QDAY MARCY Protocol Cefepime HCl 2 gm/ Sodium 50 mls @ 100 mls/hr 10/22/24 14:00 10/22/24 13:18 Chloride IV 10/23/24 13:31 100 mls/hr Q8HR MARCY Administration Insulin Human Lispro 0 unit 10/22/24 11:30 10/22/24 11:30 Insulin Lispro (Admelog) 1 Unit/0.01 Ml Unit SC 11/21/24 11:29 4 unit ACHS MARCY Administration Protocol Lidocaine 1 patch 10/15/24 14:45 10/22/24 00:08 Lidocaine 5% 1 Patch TOP 11/14/24 14:44 1 patch DAILY PRN Administration RIGHT SHOULDER PAIN Melatonin 3 mg 10/16/24 21:00 10/21/24 20:50 Melatonin 3 Mg Tablet PO 11/15/24 20:59 3 mg HS MARCY Administration Ondansetron HCl 4 mg 10/13/24 21:44 Ondansetron Inj 2 Mg/Ml Inj 2 Ml IV 11/12/24 21:43 Q6H PRN NAUSEA OR VOMITING Protocol Pantoprazole Sodium 40 mg 10/17/24 21:00 10/22/24 08:05 Pantoprazole Inj 40 Mg Vial IV 11/16/24 20:59 40 mg BID MARCY Administration Polyethylene Glycol 17 gm 10/15/24 12:15 10/22/24 08:06 Polyethylene Glycol 17 Gm Packet PO 11/14/24 12:14 17 gm QDAY MARCY Administration Sennosides 1 tab 10/15/24 12:15 10/22/24 08:05 Senna Tablet PO 11/14/24 12:14 1 tab QDAY MARCY Administration Protocol Plan Mr. Scott is a 84-year-old male with past medical history of afib on Eliquis, hypertension, prediabetes, and BPH who presented to the ED on 10/13/2024 with 6 weeks of cough, SOB , worsening generalized body weakness and bilateral leg swelling for the last 3 days. Patient is admitted to the hospital for acute hypoxic respiratory failure secondary to pneumonia and CHF exacerbation. #Concern for ARDS #Pneumonia secondary to gram-negative bacilli #Diffuse pulmonary metastatic disease #Acute hypoxic respiratory failure Bilateral pneumonia?cocci negative, sputum culture positive for gram-negative rods, antibiotics ceftriaxone and azithromycin discontinued, started on cefepime 10/16/2024, Sputum culture produced Serratia marcescens and E. coli, sensitive to cefepime, negative blood cultures to date. Also possible metastatic disease, unknown primary. ARDS?diffuse bilateral infiltrates, less likely CHF, PF ratio< 300 increased work of breathing, respiratory rate in the 30s, increasing oxygen requirements, currently on high flow nasal cannula oxygen 30 L/min. Patient's oxygenation status on 10/22 has improved high flow nasal cannula of 25 L with 40% FiO2 Plan: Cefepime started 10/16; last dose 10/23, will consider adding agent Switch from dexamethasone to IV hydrocortisone 50 mg every 6 hours Will consider repeat chest x-ray and ABG in the a.m. Transfer process initiated due to family's concern for lack of pulmonology service at the moment. #Concern for metastatic malignancy #Unknown primary location, likely GI -Patient does not have a known history of cancer however father had esophageal cancer, Patient states his last colonoscopy was less than 3 years ago and no significant findings or polyps were noted,Patient recently lost 30 pounds in 2 months, CTA of chest- Extensive nodular parenchymal disease throughout both lungs, the subcentimeter bilateral nodules noted could be infectious in etiology or represent pulmonary nodular metastatic disease, clinical correlation advised and follow-up recommended post treatment for pneumonia. 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 Metastatic disease?CT-guided lung biopsy was done on 10/18/2024 of right upper lobe pulmonary nodule, spoke to pathologist Dr. Yao preliminary pathology report is positive for malignant cells,unable to determine primary malignancy, final report to follow after special stains, likely metastatic disease as patient has osteolytic lesion in thoracic spine and numerous pulmonary nodules. Per pathology, squamous cell carcinoma remains #1 on the differential list likely secondary to GI source Plan: Pending final pathology report, spoke to Dr. Santos, heme-onc, who said they would see the patient at cancer treatment center on outpatient once acute infection is resolved. #CHF exacerbation, less likely Statistical Clerk Advertising Dr. Grider is consulted following the patient recommended IV diuresis and antibiotics. Adequate diuresis achieved, bilateral lower extremity swelling improved, patient developed contraction alkalosis, noted increasing BUN, clinically dehydrated, will hold off on diuresis for now, continued worsening of chest x-ray and increasing oxygen requirements likely secondary to ARDS, less likely acute pulmonary edema secondary to CHF. Last echo in 2024, completed outpatient, showed normal left ventricular function with EF of 70-75% Plan: Continue to monitor #GERD-like symptoms #Dysphagia #Esophageal strictures s/p dilation on 10/17 Patient complains of burning sensation whenever he eats causing poor appetite. He feels like someone is stuck in his throat EGD done findings are consistent with esophageal stricture, esophagitis, gastritis Plan: Pantoprazole 40 mg PO qday Famotidine 20 mg PO qday prn if symptoms persist Speech evaluation completed Consult GI, appreciate recommendations #BPH Chronic medical condition Plan: Continue home finasteride 5 Mg daily and tamsulosin 0.4 Mg p.o. daily #Concern for PE- ruled out Negative CTA, of note patient was inadequately anticoagulated on Eliquis 2.5, does not meet criteria for low-dose Eliquis, started on full dose anticoagulation Eliquis 5 mg twice daily. 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 Halina Olivarez, PGY-1
--- NOTE | 2024-10-22 19:53 | ESPR_ITS ---
Documentation for date of: 10/22/24 Subjective Subjective Interval history: Patient evaluated he is on high flow nasal cannula Dysphagia has improved after endoscopic dilatation Exam Vital Signs Temp Pulse Resp BP Pulse Ox O2 Del Method O2 Flow Rate 99.7 F 73 22 H 147/80 H 94 L High Flow Nasal Cannula 10/22/24 12:00 10/22/24 19:10 10/22/24 19:10 10/22/24 16:00 10/22/24 19:10 10/22/24 16:00 10/22/24 19:10 FiO2 40 10/22/24 19:10 Routine Respiratory Exam Comments: Scattered rhonchi Routine Abdominal Exam Comments: Soft nontender Objective Labs 10/22/24 04:40 10/22/24 04:40 Labs: Laboratory Results - last 24 hr 10/13/24 10/15/24 10/16/24 18:23 15:23 06:15 WBC RBC Hgb Hct MCV MCH MCHC RDW Std Deviation Plt Count Neut % (Auto) Lymph % (Auto) [place] % (Auto) Eos % (Auto) Baso % (Auto) Neut # (Auto) Lymph # (Auto) [place] # (Auto) Eos # (Auto) Baso # (Auto) Immature Gran # (Auto) Absolute Nucleated RBC Immature Gran % Nucleated RBC % Puncture Site ABG pH ABG pCO2 ABG pO2 ABG HCO3 ABG O2 Saturation ABG Base Excess FiO2 Sodium Potassium Chloride Carbon Dioxide Anion Gap BUN Creatinine Estim Creat Clear Calc eGFR BUN/Creatinine Ratio Glucose Calculated Osmolality Calcium Corrected Calcium Total Bilirubin AST ALT Alkaline Phosphatase C-Reactive Prot, Quant Total Protein 5.1 L Albumin 2.4 L Globulin Albumin/Globulin Ratio Incio-5-Wyyswuzsp 0.4 H Tmvid-8-Cobrumlbk 0.9 Urse-2-Ftvbaxqi 0.3 L Fzyr-9-Xcfpxesc 0.3 Gamma Globulins 0.8 Abnorm Protein Band 1 TNP Abnorm Protein Band 2 TNP Abnorm Protein Band 3 TNP PEP Interpretation SEE NOTE Vit D 1,25-Dihyd Total 18 1,25 Dihydroxy Vit D2 <8 1,25 Dihydroxy Vit D3 18 Serum Immunofixation SEE NOTE Urine Immunofixation SEE NOTE REX Screen NEGATIVE REX Titer TNP REX Titer 2 TNP REX Titer 3 TNP REX Pattern TNP REX Pattern 2 TNP REX Pattern 3 TNP Sm (Chavira) Antibody <1.0 NEG SM/[employer] IgG Antibody <1.0 NEG Scl-70 Antibody <1.0 NEG Double Strand DNA Ab <1 Beta-(1,3)-D-Glucan <31 B-(1,3)-D-Glucan Intrp NEGATIVE Misc Test Result 10/16/24 10/22/24 10/22/24 11:40 04:40 04:43 WBC 9.5 D RBC 4.03 L Hgb 12.7 L Hct 38.6 L MCV 96 MCH 31.5 MCHC 32.9 RDW Std Deviation 50.2 H Plt Count 159 Neut % (Auto) 88 H Lymph % (Auto) 6 L [place] % (Auto) 6 Eos % (Auto) 0 Baso % (Auto) 0 Neut # (Auto) 8.4 H Lymph # (Auto) 0.6 L [place] # (Auto) 0.5 Eos # (Auto) 0.0 Baso # (Auto) 0.0 Immature Gran # (Auto) 0.05 H Absolute Nucleated RBC 0.00 Immature Gran % 1 H Nucleated RBC % 0 Puncture Site Left Radial ABG pH 7.45 ABG pCO2 48 ABG pO2 73 L ABG HCO3 33 H ABG O2 Saturation 96 ABG Base Excess 8 H FiO2 50 Sodium 137 Potassium 4.1 Chloride 99 Carbon Dioxide 30.9 Anion Gap 7 BUN 38 H Creatinine 0.8 Estim Creat Clear Calc 81.1 eGFR > 60 BUN/Creatinine Ratio 48 H Glucose 163 H Calculated Osmolality 286 Calcium 7.9 L Corrected Calcium 8.7 Total Bilirubin 0.5 AST 30 ALT 33 Alkaline Phosphatase 223 H C-Reactive Prot, Quant 2.3 H Total Protein 5.6 L Albumin 3.0 L Globulin 2.6 Albumin/Globulin Ratio 1.2 Oymgf-2-Vskmcjnqz Bcrie-2-Gzmplkpjk Stbs-8-Plqvxmxm Mpct-1-Rgvqcmda Gamma Globulins Abnorm Protein Band 1 Abnorm Protein Band 2 Abnorm Protein Band 3 PEP Interpretation Vit D 1,25-Dihyd Total 1,25 Dihydroxy Vit D2 1,25 Dihydroxy Vit D3 Serum Immunofixation Urine Immunofixation REX Screen REX Titer REX Titer 2 REX Titer 3 REX Pattern REX Pattern 2 REX Pattern 3 Sm (Chavira) Antibody SM/[employer] IgG Antibody Scl-70 Antibody Double Strand DNA Ab Beta-(1,3)-D-Glucan B-(1,3)-D-Glucan Intrp Misc Test Result See Sep Rpt Impressions Impression: # Esophageal stricture status post endoscopic dilatation # Acute respiratory failure on high flow nasal cannula ABG Interpretation ABG results: 10/19/24 10/22/24 08:50 04:43 ABG pH 7.40 7.45 ABG pCO2 55 H 48 ABG pO2 72 L 73 L ABG HCO3 34 H 33 H ABG O2 Saturation 95 96 ABG Base Excess 8 H 8 H Assessment & Plan A&P Narrative # Dysphagia # Abnormal weight loss Plan tentatively scheduled for fiberoptic esophagogastroduodenoscopy with possible biopsy possible Therapeutic intervention under intravenous moderate sedation of course it all depends upon his respiratory status in the FiO2 of the oxygen Other medical problems include # Atrial fibrillation on Eliquis # Essential hypertension # Diabetes mellitus type 2 # BPH Thank you very much for the opportunity to participate in the care of this patient Time Spent With Patient Time: Total time spent is greater than 50% in coordination of care (as documented) at patient's floor/unit and/or counseling patient:
[2024-10-22] MEDS: MELATONIN 3 MG TABLET PO (21:34)
[2024-10-23] VITALS (12 sets, daily range): BP systolic 130–143; BP diastolic 64–78; PULSE 74–95; RESP 17–27; TEMP 36.1–36.8; O2SAT 88–97; BMI 32.4; BMI 12.0
[2024-10-23] MEDS: ALBUTEROL/IPRATROPIUM (Duoneb) RT SOL 3 ML NEBU INH ×4 (01:30→18:40)
--- NOTE | 2024-10-23 04:07 | PC.NURSE ---
[id number] Patient transferred from ICU to Tele 267 via bed. Patient alert oriented on high flow VSS
[2024-10-23] MEDS: CEFEPIME INJ 2 GM in SODIUM CHLORIDE 0.9% 50 ML IV (05:16)
[2024-10-23] MEDS: BENZONATATE 100 MG CAPSULE PO ×3 (05:17→21:13)
[2024-10-23 06:29] LABS: Basophils % (Auto) 0 % (0-2.5); Eosinophils % (Auto) 0 % (0-10); Hemoglobin 13.7 g/dL (13.5-16.0); Immature Granulocytes % (Auto) 1 % (0-0); Immature Granulocytes Auto 0.08 Thou/mm3 (0.00-0.00); Lymphocytes # (Auto) 0.5 Thou/mm3 (1.0-4.8); Lymphocytes % (Auto) 5 % (10-50); Mean Corpuscular HGB Conc 33.4 g/dl (31.0-37.0); Mean Corpuscular Hemoglobin 31.3 pg (25.0-35.0); Mean Corpuscular Volume 94 fL (80-100); Monocytes # (Auto) 0.8 Thou/mm3 (0.0-0.8); Monocytes % (Auto) 7 % (0-12); Neutrophils # (Auto) 9.8 Thou/mm3 (1.8-7.7); Neutrophils % (Auto) 88 % (37-80); Nucleated Red Blood Cell % 0 /100 WBC (0); Platelet Count 150 Thou/mm3 (140-440); RDW Standard Deviation 47.9 fL (35.1-43.9); Red Blood Count 4.38 Miln/mm3 (4.50-5.90); White Blood Count 11.2 Thou/mm3 (3.8-10.6)
[2024-10-23 06:57] LABS: Alanine Aminotransferase 61 U/L (10-49); Albumin, Serum 3.1 gm/dL (3.4-4.8); Albumin/Globulin Ratio 1.1 (1.2-2.2); Alkaline Phosphatase 220 U/L (46-116); Anion Gap 5 (7-16); Aspartate Amino Transferase 46 U/L (0-34); BUN/Creatinine Ratio 43 Ratio (12-20); Bilirubin,Total 0.6 mg/dL (0.3-1.2); Blood Urea Nitrogen 34 mg/dL (9-23); Calcium 8.1 mg/dL (8.3-10.6); Calcium (Corrected) 8.8 mg/dL (8.5-10.1); Carbon Dioxide 28.9 mMol/L (20.0-31.0); Chloride 103 mMol/L (98-107); Creatinine (Component) 0.8 mg/dL (0.6-1.3); Estimated Creatinine Clearance 81.1 mL/min (>60); Globulin 2.7 gm/dL (2.3-3.5); Glucose 164 mg/dL (74-106); Osmolality,Calculated 285 (275-295); Potassium 4.5 mMol/L (3.4-5.1); Sodium 137 mMol/L (136-145); Total Protein 5.8 gm/dL (5.7-8.2); eGFR > 60 See Note
[2024-10-23] MEDS: APIXABAN 2.5 MG TABLET 5 MG PO ×2 (09:29→21:13)
[2024-10-23] MEDS: ASPIRIN EC 81 MG TABEC PO (09:29)
[2024-10-23] MEDS: POLYETHYLENE GLYCOL 17 GM PACKET PO (09:29)
[2024-10-23] MEDS: PANTOPRAZOLE INJ 40 MG VIAL IV ×2 (09:29→21:12)
[2024-10-23] MEDS: SENNA TABLET 1 TAB PO (09:29)
[2024-10-23] MEDS: HYDROCORTISONE SOD SUCC INJ 100 MG VIAL 50 MG IV ×3 (09:30→17:53)
[2024-10-23] MEDS: FINASTERIDE 5 MG TABLET PO (09:30)
--- NOTE | 2024-10-23 09:30 | PC.SS ---
INSTRUMENTATION ENGINEERING TECHNICIAN confirmed with resident that patient's transfer has been cancelled. INSTRUMENTATION ENGINEERING TECHNICIAN updated patient and family that patient's elevated oxygen requirement not permissible for discharge to acute rehab at this current time.
--- NOTE | 2024-10-23 09:54 | XR_ITS ---
Examination: AP chest single view Technique one AP portable sitting chest single view Exam date and time: 2024 1059 hours Comparison October 22, 2024 INDICATIONS: Onset shortness of breath today. FINDINGS: Extensive bilateral lung opacity Mild enlargement cardiac contour with prominent vascular congestion Significant osteopenia IMPRESSION: Extensive bilateral pulmonary nodular metastatic disease Extensive bilateral pneumonia/ARDS Mild associated heart failure
[2024-10-23] MEDS: INSULIN LISPRO (AdmeLOG) 1 UNIT/0.01 ML UNIT SC ×3 (12:11→21:26)
--- NOTE | 2024-10-23 13:18 | PC.CM ---
Addendum entered by Barbara Santamaria RN 10/23/24 19:04: I reached out to [facility] transfer center to follow up on transfer request. Lida stated they did receive the request to transfer and they declined due to capacity. She stated they do have documentation in their system that Dr. Meade called them and provided them with information that was provided to them by patient's family. Original Note: [id number] Dr. Meade called me stating patient's family spoke to a doctor at [facility] and they are willing to accept patient for transfer. I let Dr. Meade know that the doctor that has accepted needs to reach out to the transfer center at [facility] and he needs to let them know that he has accepted patient, and they would like to have patient transferred from [facility] to [facility]. Dr. Meade called the transfer center himself to try and expedite everything. I let Dr. Meade know that the accepting doctor from [facility] should call transfer center himself, and that might expedite everything, if [facility] has an available bed.
--- NOTE | 2024-10-23 13:45 | EVENTNT_ITS ---
Documentation for date of: 10/23/24 Event Note Event Note: At bedside rounds today after discussing the patient's case with the patient's family, they are requesting transfer to either [facility] or [facility]. At bedside today, the patients patient's two daughters were present, the patient's [id number], Dr. Analy Holguin - [phone] a graduate of [facility] and knows the president of the hospitalist group,[facility], Dr. Parsons [phone], was also on speaker phone. Dr Holguin was able to speak with Dr Parsons and he agreed to have one of his hospitalist accept the patient to either [place] or [facility], [facility] covers both hospitals. I called Dr. Parsons personally and confirmed, I also called the transfer center up at [facility] who had no knowledge of this agreement however I gave them the patient's information and Dr. Schmitz information to include his phone number to begin the transfer process. The transfer center informed me there is no beds available at [place] or [facility] at this time. I did inform the family of this and let them know that the transfer process does involve the actual transfer center and just because there is an accepting physician, we do have to wait for an available bed. The patient will also need a telemetry bed or a stepdown bed in his present condition. I will keep the family updated.
--- NOTE | 2024-10-23 15:19 | ESPR_ITS ---
Documentation for date of: 10/23/24 Subjective Subjective Interval history: 10/23/2024: No acute overnight events. Patient continues to make steady but guarded progress with oxygen requirements. Will initiate transfer to higher- acuity clinic as per family discussions. Exam Vital Signs Temp Pulse Resp BP Pulse Ox O2 Del Method O2 Flow Rate 97.4 F 77 26 H 137/78 H 95 High Flow Nasal Cannula 35 10/23/24 12:00 10/23/24 14:30 10/23/24 14:30 10/23/24 12:00 10/23/24 14:30 10/23/24 12:00 10/23/24 14:30 FiO2 55 10/23/24 14:30 Narrative Exam GENERAL: A&Ox3 . Awake, Not in acute distress NEURO: no focal neurological deficits HEENT: Atraumatic, Normocephalic. mucous membranes moist. Eyes open, symmetrical, & clear HEART: Normal Heart Sounds LUNGS: Clear breath sounds bilaterally ABDOMEN: soft, non-distended, non-tender, bowel sounds heard, no guarding or rebound tenderness SKIN: No Rash or ecchymoses, decubitus ulcer on buttocks EXTREMITIES:no pitting edema bilaterally resolved, no tenderness Objective Labs 10/23/24 05:15 10/23/24 05:15 Labs: Laboratory Results - last 24 hr 10/23/24 05:15 WBC 11.2 H RBC 4.38 L Hgb 13.7 Hct 41.0 MCV 94 MCH 31.3 MCHC 33.4 RDW Std Deviation 47.9 H Plt Count 150 Neut % (Auto) 88 H Lymph % (Auto) 5 L [place] % (Auto) 7 Eos % (Auto) 0 Baso % (Auto) 0 Neut # (Auto) 9.8 H Lymph # (Auto) 0.5 L [place] # (Auto) 0.8 Eos # (Auto) 0.0 Baso # (Auto) 0.0 Immature Gran # (Auto) 0.08 H Absolute Nucleated RBC 0.00 Immature Gran % 1 H Nucleated RBC % 0 Sodium 137 Potassium 4.5 Chloride 103 Carbon Dioxide 28.9 Anion Gap 5 L BUN 34 H Creatinine 0.8 Estim Creat Clear Calc 81.1 eGFR > 60 BUN/Creatinine Ratio 43 H Glucose 164 H Calculated Osmolality 285 Calcium 8.1 L Corrected Calcium 8.8 Total Bilirubin 0.6 AST 46 H ALT 61 H Alkaline Phosphatase 220 H Total Protein 5.8 Albumin 3.1 L Globulin 2.7 Albumin/Globulin Ratio 1.1 L ABG Interpretation ABG results: 10/19/24 10/22/24 08:50 04:43 ABG pH 7.40 7.45 ABG pCO2 55 H 48 ABG pO2 72 L 73 L ABG HCO3 34 H 33 H ABG O2 Saturation 95 96 ABG Base Excess 8 H 8 H Quality Measures Quality Measures VTE prophylaxis Advance care planning discussed with:: patient, spouse and child Assessment & Plan Assessment Current Active Medications: Generic Name Dose Route Start Last Admin Trade Name Freq PRN Reason Stop Dose Admin Acetaminophen 650 mg 10/13/24 21:44 10/22/24 22:37 Acetaminophen 325 Mg Tablet PO 11/12/24 21:43 650 mg Q6H PRN Administration Fever >100.4 or Pain 1-10 Albuterol/Ipratropium 3 ml 10/16/24 19:00 10/23/24 14:28 Albuterol/Ipratropium (Duoneb) Rt Diana 3 Ml Nebu INH 11/15/24 18:59 3 ml Q6HRRT MARCY Administration Apixaban 5 mg 10/15/24 21:00 10/23/24 09:29 Apixaban 2.5 Mg Tablet PO 11/14/24 20:59 5 mg BID MARCY Administration Aspirin 81 mg 10/14/24 09:00 10/23/24 09:29 Aspirin Ec 81 Mg Tabec PO 11/13/24 08:59 81 mg DAILY MARCY Administration Balsam [place] Oil 0 gm 10/16/24 21:00 10/22/24 21:30 Balsam [place] Oil (Venelex) 60 Gm Tube TOP 11/15/24 20:59 1 applicatio BID MARCY Administration Benzonatate 100 mg 10/16/24 22:00 10/23/24 05:17 Benzonatate 100 Mg Capsule PO 11/15/24 21:59 100 mg TID MARCY Administration Protocol Bisacodyl 10 mg 10/13/24 21:44 10/17/24 00:52 Bisacodyl 5 Mg Tabec PO 11/12/24 21:43 10 mg QDAY PRN Administration CONSTIPATION Protocol Dextrose 25 ml 10/22/24 08:06 Dextrose 50%-Water Inj 50 Ml Syringe IV 11/21/24 08:05 Q15MIN PRN BG 50-70 responsive npo pt Dextrose 50 ml 10/22/24 08:06 Dextrose 50%-Water Inj 50 Ml Syringe IV 11/21/24 08:05 Q15MIN PRN BG <50 OR BG <70 & pt unresponsive Famotidine 20 mg 10/13/24 23:23 Famotidine 20 Mg Tablet PO 11/12/24 23:22 DAILY PRN GERD Finasteride 5 mg 10/15/24 09:00 10/23/24 09:30 Finasteride 5 Mg Tablet PO 11/14/24 08:59 5 mg QDAY MARCY Administration Furosemide 40 mg 10/18/24 21:00 10/20/24 08:53 Furosemide Inj 10 Mg/Ml 4ml Vial IVP 11/17/24 20:59 40 mg BID MARCY Administration Glucagon 1 mg 10/22/24 08:06 Glucagon Inj 1 Mg Vial IM Q15MIN PRN BG <70, and no IV access Guaifenesin/Dextromethorphan 1 each 10/15/24 09:51 10/21/24 21:02 Guaifenesin/Dm Tablet PO 11/14/24 09:50 1 each BID PRN Administration COUGH Hydrocortisone Sodium Succinate 50 mg 10/23/24 09:00 10/23/24 12:11 Hydrocortisone Sod Succ Inj 100 Mg Vial IV 10/26/24 08:59 50 mg Q6HR MARCY Administration Protocol Insulin Human Lispro 0 unit 10/22/24 11:30 10/23/24 12:11 Insulin Lispro (Admelog) 1 Unit/0.01 Ml Unit SC 11/21/24 11:29 1 unit ACHS MARCY Administration Protocol Lidocaine 1 patch 10/15/24 14:45 10/22/24 00:08 Lidocaine 5% 1 Patch TOP 11/14/24 14:44 1 patch DAILY PRN Administration RIGHT SHOULDER PAIN Melatonin 3 mg 10/16/24 21:00 10/22/24 21:34 Melatonin 3 Mg Tablet PO 11/15/24 20:59 3 mg HS MARCY Administration Ondansetron HCl 4 mg 10/13/24 21:44 Ondansetron Inj 2 Mg/Ml Inj 2 Ml IV 11/12/24 21:43 Q6H PRN NAUSEA OR VOMITING Protocol Pantoprazole Sodium 40 mg 10/17/24 21:00 10/23/24 09:29 Pantoprazole Inj 40 Mg Vial IV 11/16/24 20:59 40 mg BID MARCY Administration Polyethylene Glycol 17 gm 10/15/24 12:15 10/23/24 09:29 Polyethylene Glycol 17 Gm Packet PO 11/14/24 12:14 17 gm QDAY MARCY Administration Sennosides 1 tab 10/15/24 12:15 10/23/24 09:29 Senna Tablet PO 11/14/24 12:14 1 tab QDAY MARCY Administration Protocol Plan Mr. Scott is a 84-year-old male with past medical history of afib on Eliquis, hypertension, prediabetes, and BPH who presented to the ED on 10/13/2024 with 6 weeks of cough, SOB , worsening generalized body weakness and bilateral leg swelling for the last 3 days. Patient is admitted to the hospital for acute hypoxic respiratory failure secondary to pneumonia and CHF exacerbation. #ARDS #Pneumonia secondary to gram-negative bacilli #Diffuse pulmonary metastatic disease #Acute hypoxic respiratory failure Bilateral pneumonia?cocci negative, sputum culture positive for gram-negative rods, antibiotics ceftriaxone and azithromycin discontinued, started on cefepime 10/16/2024, Sputum culture produced Serratia marcescens and E. coli, sensitive to cefepime, negative blood cultures to date. Also possible metastatic disease, unknown primary. ARDS?diffuse bilateral infiltrates, less likely CHF, PF ratio< 300 increased work of breathing, respiratory rate in the 30s, increasing oxygen requirements, currently on high flow nasal cannula oxygen 30 L/min. Patient's oxygenation status on 10/22 has improved high flow nasal cannula of 25 L with 40% FiO2 Plan: Cefepime started 10/16; last dose 10/23, will consider adding agent Continue IV hydrocortisone 50 mg every 6 hours Will consider repeat chest x-ray and ABG in the a.m if patient's oxygenation status changes Transfer process initiated #Metastatic malignancy #Unknown primary location, likely GI -Patient does not have a known history of cancer however father had esophageal cancer, Patient states his last colonoscopy was less than 3 years ago and no significant findings or polyps were noted,Patient recently lost 30 pounds in 2 months, CTA of chest- Extensive nodular parenchymal disease throughout both lungs, the subcentimeter bilateral nodules noted could be infectious in etiology or represent pulmonary nodular metastatic disease, clinical correlation advised and follow-up recommended post treatment for pneumonia. 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 Metastatic disease?CT-guided lung biopsy was done on 10/18/2024 of right upper lobe pulmonary nodule, spoke to pathologist Dr. Yao preliminary pathology report is positive for malignant cells,unable to determine primary malignancy, final report to follow after special stains, likely metastatic disease as patient has osteolytic lesion in thoracic spine and numerous pulmonary nodules. Per pathology, squamous cell carcinoma remains #1 on the differential list likely secondary to GI source Plan: Pending final pathology report, spoke to Dr. Santos, heme-onc, who said they would see the patient at cancer treatment center on outpatient once acute infection is resolved. #CHF exacerbation, less likely Cathode Builder Dr. Grider is consulted following the patient recommended IV diuresis and antibiotics. Adequate diuresis achieved, bilateral lower extremity swelling improved, patient developed contraction alkalosis, noted increasing BUN, clinically dehydrated, will hold off on diuresis for now, continued worsening of chest x-ray and increasing oxygen requirements likely secondary to ARDS, less likely acute pulmonary edema secondary to CHF. Last echo in 2024, completed outpatient, showed normal left ventricular function with EF of 70-75% Plan: Continue to monitor #GERD-like symptoms #Dysphagia #Esophageal strictures s/p dilation on 10/17 Patient complains of burning sensation whenever he eats causing poor appetite. He feels like someone is stuck in his throat EGD done findings are consistent with esophageal stricture, esophagitis, gastritis Plan: Pantoprazole 40 mg PO qday Famotidine 20 mg PO qday prn if symptoms persist Speech evaluation completed GI consulted, appreciate recommendations #BPH Chronic medical condition Plan: Continue home finasteride 5 Mg daily and tamsulosin 0.4 Mg p.o. daily #Concern for PE- ruled out Negative CTA, of note patient was inadequately anticoagulated on Eliquis 2.5, does not meet criteria for low-dose Eliquis, started on full dose anticoagulation Eliquis 5 mg twice daily. 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 Halina Olivarez, PGY-1 Attending Provider Attestation/Addendum I have discussed and was present for the essential components of the history, physical examination, diagnosis, and treatment plan with the resident. I agree with the patient's care as documented by the resident and amended herein by me. Bartolo Meade, DO. Vital signs stable, patient afebrile overnight. Patient did desaturate slightly in the a.m., remains on HFNC, 30/60 this morning, SpO2 94%. Significant labs include a WBC of 11, BMP largely unremarkable. Will continue cefepime, titrate down high flow as tolerated, continue hydrocortisone 50 mg IV every 6 hours per pulmonology recommendations, will also continue Eliquis, aspirin for now. Likely steroid taper in 3 to 4 days. Patient also pending transfer to either [facility] or [facility] depending on bed availability, see event note stating specifics Although this document has been carefully reviewed, there may still be some phonetic and other typographical errors. These errors are purely grammatical due to imperfections in the software program and should not be construed in any way to compromise the substance of the patient's medical care during this visit.
[2024-10-23] MEDS: BALSAM PERU/CASTOR OIL (Venelex) 60 GM TUBE TOP ×2 (15:51→21:13)
--- NOTE | 2024-10-23 21:02 | PD.IMPROG ---
Documentation for date of: 10/23/24 Subjective Subjective Interval history: Patient evaluated high flow nasal cannula Dysphagia has improved Exam Vital Signs Temp Pulse Resp BP Pulse Ox O2 Del Method O2 Flow Rate 97.6 F 88 23 H 139/77 H 97 High Flow Nasal Cannula 35 10/23/24 20:00 10/23/24 20:00 10/23/24 20:00 10/23/24 20:00 10/23/24 20:00 10/23/24 20:00 10/23/24 20:00 FiO2 50 10/23/24 20:00 Objective Labs 10/23/24 05:15 10/23/24 05:15 Labs: Laboratory Results - last 24 hr 10/23/24 05:15 WBC 11.2 H RBC 4.38 L Hgb 13.7 Hct 41.0 MCV 94 MCH 31.3 MCHC 33.4 RDW Std Deviation 47.9 H Plt Count 150 Neut % (Auto) 88 H Lymph % (Auto) 5 L [place] % (Auto) 7 Eos % (Auto) 0 Baso % (Auto) 0 Neut # (Auto) 9.8 H Lymph # (Auto) 0.5 L [place] # (Auto) 0.8 Eos # (Auto) 0.0 Baso # (Auto) 0.0 Immature Gran # (Auto) 0.08 H Absolute Nucleated RBC 0.00 Immature Gran % 1 H Nucleated RBC % 0 Sodium 137 Potassium 4.5 Chloride 103 Carbon Dioxide 28.9 Anion Gap 5 L BUN 34 H Creatinine 0.8 Estim Creat Clear Calc 81.1 eGFR > 60 BUN/Creatinine Ratio 43 H Glucose 164 H Calculated Osmolality 285 Calcium 8.1 L Corrected Calcium 8.8 Total Bilirubin 0.6 AST 46 H ALT 61 H Alkaline Phosphatase 220 H Total Protein 5.8 Albumin 3.1 L Globulin 2.7 Albumin/Globulin Ratio 1.1 L Impressions Impression: # Dysphagia improved after endoscopic dilatation # High flow nasal cannula in the setting of acute respiratory failure ABG Interpretation ABG results: 10/19/24 10/22/24 08:50 04:43 ABG pH 7.40 7.45 ABG pCO2 55 H 48 ABG pO2 72 L 73 L ABG HCO3 34 H 33 H ABG O2 Saturation 95 96 ABG Base Excess 8 H 8 H Assessment & Plan A&P Narrative # Dysphagia # Abnormal weight loss Plan tentatively scheduled for fiberoptic esophagogastroduodenoscopy with possible biopsy possible Therapeutic intervention under intravenous moderate sedation of course it all depends upon his respiratory status in the FiO2 of the oxygen Other medical problems include # Atrial fibrillation on Eliquis # Essential hypertension # Diabetes mellitus type 2 # BPH Thank you very much for the opportunity to participate in the care of this patient Time Spent With Patient Time: Total time spent is greater than 50% in coordination of care (as documented) at patient's floor/unit and/or counseling patient:
[2024-10-23] MEDS: MELATONIN 3 MG TABLET PO (21:13)
[2024-10-24] VITALS (13 sets, daily range): BP systolic 130–158; BP diastolic 67–85; PULSE 74–92; RESP 18–29; TEMP 36–37.3; O2SAT 92–98; BMI 32.4; BMI 12.0
[2024-10-24] MEDS: ALBUTEROL/IPRATROPIUM (Duoneb) RT SOL 3 ML NEBU INH ×4 (00:50→18:15)
[2024-10-24] MEDS: HYDROCORTISONE SOD SUCC INJ 100 MG VIAL 50 MG IV ×4 (00:55→17:37)
[2024-10-24] MEDS: BENZONATATE 100 MG CAPSULE PO ×3 (05:04→22:32)
[2024-10-24 06:16] LABS: Basophils % (Auto) 0 % (0-2.5); Eosinophils % (Auto) 0 % (0-10); Hematocrit 41.2 % (41.0-53.0); Hemoglobin 13.8 g/dL (13.5-16.0); Immature Granulocytes % (Auto) 1 % (0-0); Immature Granulocytes Auto 0.12 Thou/mm3 (0.00-0.00); Lymphocytes # (Auto) 0.5 Thou/mm3 (1.0-4.8); Lymphocytes % (Auto) 4 % (10-50); Mean Corpuscular HGB Conc 33.5 g/dl (31.0-37.0); Mean Corpuscular Hemoglobin 31.2 pg (25.0-35.0); Mean Corpuscular Volume 93 fL (80-100); Monocytes # (Auto) 0.6 Thou/mm3 (0.0-0.8); Monocytes % (Auto) 5 % (0-12); Neutrophils # (Auto) 10.7 Thou/mm3 (1.8-7.7); Neutrophils % (Auto) 90 % (37-80); Nucleated Red Blood Cell % 0 /100 WBC (0); Platelet Count 165 Thou/mm3 (140-440); RDW Standard Deviation 49.1 fL (35.1-43.9); Red Blood Count 4.43 Miln/mm3 (4.50-5.90); White Blood Count 11.9 Thou/mm3 (3.8-10.6)
[2024-10-24 06:51] LABS: Alanine Aminotransferase 85 U/L (10-49); Albumin, Serum 3.2 gm/dL (3.4-4.8); Albumin/Globulin Ratio 1.2 (1.2-2.2); Alkaline Phosphatase 230 U/L (46-116); Anion Gap 6 (7-16); Aspartate Amino Transferase 37 U/L (0-34); BUN/Creatinine Ratio 43 Ratio (12-20); Bilirubin,Total 0.6 mg/dL (0.3-1.2); Blood Urea Nitrogen 34 mg/dL (9-23); Calcium 7.9 mg/dL (8.3-10.6); Calcium (Corrected) 8.5 mg/dL (8.5-10.1); Carbon Dioxide 30.2 mMol/L (20.0-31.0); Chloride 101 mMol/L (98-107); Creatinine (Component) 0.8 mg/dL (0.6-1.3); Estimated Creatinine Clearance 81.1 mL/min (>60); Globulin 2.6 gm/dL (2.3-3.5); Glucose 194 mg/dL (74-106); Osmolality,Calculated 286 (275-295); Potassium 4.8 mMol/L (3.4-5.1); Sodium 137 mMol/L (136-145); Total Protein 5.8 gm/dL (5.7-8.2); eGFR > 60 See Note
[2024-10-24] MEDS: INSULIN LISPRO (AdmeLOG) 1 UNIT/0.01 ML UNIT SC ×6 (07:47→22:16)
--- NOTE | 2024-10-24 07:52 | PC.CC ---
Addendum entered by Ayaan Garcia RN 10/24/24 11:47: 1147 TBA completed and faxed back to [facility]. Addendum entered by Ayaan Garcia RN 10/24/24 11:40: [address] Meade on TBA, PCS and pink form. I also obtained signature from pt daughter on pink form per pt request. Addendum entered by Ayaan Garcia RN 10/24/24 11:12: [address] [facility], spoke to Kelly. She stated pt is accepted at [facility]. Accepted by Dr. Orozco. Now pending bed availability. She also stated she is going to fax TBA. Fax number provided. Addendum entered by Ayaan Garcia RN 10/24/24 09:47: [address] [facility]. 0939 received call from Kelly at [facility]. She stated she spoke to Dr. Parsons and he is accepting the pt. and he wants to bring the pt from inpatient to ED. Kelly stated she had 124 pt in ED waiting for beds. She is going to speak to her management. She asked to fax face sheet. Addendum entered by Ayaan Garcia RN 10/24/24 08:39: [address] back from [facility], spoke to Kelly. I informed her about the transfer request. She has questions that pt needs pulmonology services but Dr. Parsons is a hospitalist, he is not the the speciality that pt needs, did he speak to pulmonology to accept the case. She stated she will reach to Dr. Parsons and find out and will call me back. Addendum entered by Ayaan Garcia RN 10/24/24 08:17: [address] [facility], left VM. Addendum entered by Ayaan Garcia RN 10/24/24 08:15: [address] Meade. He stated to reach out to [facility] to ask if we have an accepting DrLing at [facility], why can't they place the pt on wait list. He stated the accepting is president of the hospitalist group,[facility], Dr. Parsons [phone] and he agreed to have one of his hospitalist accept the patient to either [facility] or [facility], [facility] covers both hospitals. Original Note: [address] Meade and informed per transfer nurse handoff [facility] declined the pt due to capacity. He stated he called [facility] himself to expedite the transfer. I explained Dr. Meade we are trying to transfer from our end. Discussed with Dr. Meade that if the team speak to the family to have the accepting reach out to [facility] transfer center in order to accept the pt. Then [facility] might accept the transfer. Got orders to hold the transfer for now. [address] Olivarez and informed per transfer nurse handoff [facility] declined the pt due to capacity. He stated team will speak to the pt and family and let them know. Orders to hold the transfer for now. [address] Meade, left . 07 Barbara's handoff that [facility] declined the transfer request due to capacity.
[2024-10-24] MEDS: ASPIRIN EC 81 MG TABEC PO (09:16)
[2024-10-24] MEDS: APIXABAN 2.5 MG TABLET 5 MG PO ×2 (09:16→21:55)
[2024-10-24] MEDS: ACETAMINOPHEN 325 MG TABLET 650 MG PO (09:16)
[2024-10-24] MEDS: BALSAM PERU/CASTOR OIL (Venelex) 60 GM TUBE TOP ×2 (09:17→21:55)
[2024-10-24] MEDS: FINASTERIDE 5 MG TABLET PO (09:17)
[2024-10-24] MEDS: SENNA TABLET 1 TAB PO (09:17)
[2024-10-24] MEDS: PANTOPRAZOLE INJ 40 MG VIAL IV ×2 (09:17→21:55)
[2024-10-24] MEDS: POLYETHYLENE GLYCOL 17 GM PACKET PO (09:17)
--- NOTE | 2024-10-24 11:42 | ESPR_ITS ---
Documentation for date of: 10/24/24 Subjective Subjective Interval history: 10/24/2024: No acute overnight events. Patient continues to make steady but guarded progress with oxygen requirements. Patient has been accepted for transfer at [facility] pending bed availability; he is currently on the top of the wait list per transfer RN. Will continue to monitor for any acute changes. Exam Vital Signs Temp Pulse Resp BP Pulse Ox O2 Del Method O2 Flow Rate 96.8 F 83 29 H 139/67 H 96 High Flow Nasal Cannula 35 10/24/24 08:00 10/24/24 08:00 10/24/24 08:00 10/24/24 08:00 10/24/24 08:00 10/24/24 08:00 10/24/24 08:00 FiO2 50 10/24/24 08:00 Narrative Exam GENERAL: A&Ox3 . Awake, Not in acute distress NEURO: no focal neurological deficits HEENT: Atraumatic, Normocephalic. mucous membranes moist. Eyes open, symmetrical, & clear HEART: Normal Heart Sounds LUNGS: Clear breath sounds bilaterally, on high flow nasal cannula 35 L at 40 to 50% FiO2 ABDOMEN: soft, non-distended, non-tender, bowel sounds heard, no guarding or rebound tenderness SKIN: No Rash or ecchymoses, decubitus ulcer on buttocks EXTREMITIES:no pitting edema bilaterally resolved, no tenderness Objective Labs 10/24/24 05:11 10/24/24 05:11 Labs: Laboratory Results - last 24 hr 10/24/24 05:11 WBC 11.9 H RBC 4.43 L Hgb 13.8 Hct 41.2 MCV 93 MCH 31.2 MCHC 33.5 RDW Std Deviation 49.1 H Plt Count 165 Neut % (Auto) 90 H Lymph % (Auto) 4 L Mchenry % (Auto) 5 Eos % (Auto) 0 Baso % (Auto) 0 Neut # (Auto) 10.7 H Lymph # (Auto) 0.5 L Mchenry # (Auto) 0.6 Eos # (Auto) 0.0 Baso # (Auto) 0.0 Immature Gran # (Auto) 0.12 H Absolute Nucleated RBC 0.00 Immature Gran % 1 H Nucleated RBC % 0 Sodium 137 Potassium 4.8 Chloride 101 Carbon Dioxide 30.2 Anion Gap 6 L BUN 34 H Creatinine 0.8 Estim Creat Clear Calc 81.1 eGFR > 60 BUN/Creatinine Ratio 43 H Glucose 194 H Calculated Osmolality 286 Calcium 7.9 L Corrected Calcium 8.5 Total Bilirubin 0.6 AST 37 H ALT 85 H Alkaline Phosphatase 230 H Total Protein 5.8 Albumin 3.2 L Globulin 2.6 Albumin/Globulin Ratio 1.2 ABG Interpretation ABG results: 10/19/24 10/22/24 08:50 04:43 ABG pH 7.40 7.45 ABG pCO2 55 H 48 ABG pO2 72 L 73 L ABG HCO3 34 H 33 H ABG O2 Saturation 95 96 ABG Base Excess 8 H 8 H Quality Measures Quality Measures VTE prophylaxis Advance care planning discussed with:: patient, spouse and child Assessment & Plan Assessment Current Active Medications: Generic Name Dose Route Start Last Admin Trade Name Freq PRN Reason Stop Dose Admin Acetaminophen 650 mg 10/13/24 21:44 10/24/24 09:16 Acetaminophen 325 Mg Tablet PO 11/12/24 21:43 650 mg Q6H PRN Administration Fever >100.4 or Pain 1-10 Albuterol/Ipratropium 3 ml 10/16/24 19:00 10/24/24 06:55 Albuterol/Ipratropium (Duoneb) Rt Diana 3 Ml Nebu INH 11/15/24 18:59 3 ml Q6HRRT MARCY Administration Apixaban 5 mg 10/15/24 21:00 10/24/24 09:16 Apixaban 2.5 Mg Tablet PO 11/14/24 20:59 5 mg BID MARCY Administration Aspirin 81 mg 10/14/24 09:00 10/24/24 09:16 Aspirin Ec 81 Mg Tabec PO 11/13/24 08:59 81 mg DAILY MARCY Administration Balsam [place] Oil 0 gm 10/16/24 21:00 10/24/24 09:17 Balsam [place] Oil (Venelex) 60 Gm Tube TOP 11/15/24 20:59 1 applicatio BID MARCY Administration Benzonatate 100 mg 10/16/24 22:00 10/24/24 05:04 Benzonatate 100 Mg Capsule PO 11/15/24 21:59 100 mg TID MARCY Administration Protocol Bisacodyl 10 mg 10/13/24 21:44 10/17/24 00:52 Bisacodyl 5 Mg Tabec PO 11/12/24 21:43 10 mg QDAY PRN Administration CONSTIPATION Protocol Dextrose 25 ml 10/22/24 08:06 Dextrose 50%-Water Inj 50 Ml Syringe IV 11/21/24 08:05 Q15MIN PRN BG 50-70 responsive npo pt Dextrose 50 ml 10/22/24 08:06 Dextrose 50%-Water Inj 50 Ml Syringe IV 11/21/24 08:05 Q15MIN PRN BG <50 OR BG <70 & pt unresponsive Famotidine 20 mg 10/13/24 23:23 Famotidine 20 Mg Tablet PO 11/12/24 23:22 DAILY PRN GERD Finasteride 5 mg 10/15/24 09:00 10/24/24 09:17 Finasteride 5 Mg Tablet PO 11/14/24 08:59 5 mg QDAY MARCY Administration Furosemide 40 mg 10/18/24 21:00 10/20/24 08:53 Furosemide Inj 10 Mg/Ml 4ml Vial IVP 11/17/24 20:59 40 mg BID MARCY Administration Glucagon 1 mg 10/22/24 08:06 Glucagon Inj 1 Mg Vial IM Q15MIN PRN BG <70, and no IV access Guaifenesin/Dextromethorphan 1 each 10/15/24 09:51 10/21/24 21:02 Guaifenesin/Dm Tablet PO 11/14/24 09:50 1 each BID PRN Administration COUGH Hydrocortisone Sodium Succinate 50 mg 10/23/24 09:00 10/24/24 05:04 Hydrocortisone Sod Succ Inj 100 Mg Vial IV 10/26/24 08:59 50 mg Q6HR MARCY Administration Protocol Insulin Glargine 3 unit 10/24/24 21:00 Insulin Glargine (Lantus) 5 Unit/0.05 Ml (Per 5 Units) SC 11/23/24 20:59 HS [facility] Insulin Human Lispro 1 unit 10/24/24 11:30 Insulin Lispro (Admelog) 1 Unit/0.01 Ml Unit SC 11/23/24 11:29 AC [facility] Insulin Human Lispro 0 unit 10/24/24 11:30 Insulin Lispro (Admelog) 1 Unit/0.01 Ml Unit SC 11/21/24 11:29 ACHS [facility] Protocol Lidocaine 1 patch 10/15/24 14:45 10/22/24 00:08 Lidocaine 5% 1 Patch TOP 11/14/24 14:44 1 patch DAILY PRN Administration RIGHT SHOULDER PAIN Melatonin 3 mg 10/16/24 21:00 10/23/24 21:13 Melatonin 3 Mg Tablet PO 11/15/24 20:59 3 mg HS MARCY Administration Ondansetron HCl 4 mg 10/13/24 21:44 Ondansetron Inj 2 Mg/Ml Inj 2 Ml IV 11/12/24 21:43 Q6H PRN NAUSEA OR VOMITING Protocol Pantoprazole Sodium 40 mg 10/17/24 21:00 10/24/24 09:17 Pantoprazole Inj 40 Mg Vial IV 11/16/24 20:59 40 mg BID MARCY Administration Polyethylene Glycol 17 gm 10/15/24 12:15 10/24/24 09:17 Polyethylene Glycol 17 Gm Packet PO 11/14/24 12:14 17 gm QDAY MARCY Administration Sennosides 1 tab 10/15/24 12:15 10/24/24 09:17 Senna Tablet PO 11/14/24 12:14 1 tab QDAY MARCY Administration Protocol Plan Mr. Scott is a 84-year-old male with past medical history of afib on Eliquis, hypertension, prediabetes, and BPH who presented to the ED on 10/13/2024 with 6 weeks of cough, SOB , worsening generalized body weakness and bilateral leg swelling for the last 3 days. Patient is admitted to the hospital for acute hypoxic respiratory failure secondary to pneumonia and CHF exacerbation. #ARDS #Pneumonia secondary to gram-negative bacilli #Diffuse pulmonary metastatic disease #Acute hypoxic respiratory failure Bilateral pneumonia?cocci negative, sputum culture positive for gram-negative rods, antibiotics ceftriaxone and azithromycin discontinued, started on cefepime 10/16/2024, Sputum culture produced Serratia marcescens and E. coli, sensitive to cefepime, negative blood cultures to date. Also possible metastatic disease, unknown primary. ARDS?diffuse bilateral infiltrates, less likely CHF, PF ratio< 300 increased work of breathing, respiratory rate in the 30s, increasing oxygen requirements, currently on high flow nasal cannula oxygen 30 L/min. Patient's oxygenation status remains stable Plan: Continue IV hydrocortisone 50 mg every 6 hours Will consider repeat chest x-ray and ABG in the a.m if patient's oxygenation status changes Transfer process initiated; [facility] accepts pateint; pending bed availabilty #Metastatic malignancy #Unknown primary location, likely GI Patient does not have a known history of cancer however father had esophageal cancer, Patient states his last colonoscopy was less than 3 years ago and no significant findings or polyps were noted,Patient recently lost 30 pounds in 2 months, CTA of chest- Extensive nodular parenchymal disease throughout both lungs, the subcentimeter bilateral nodules noted could be infectious in etiology or represent pulmonary nodular metastatic disease, clinical correlation advised and follow-up recommended post treatment for pneumonia. 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 Metastatic disease?CT-guided lung biopsy was done on 10/18/2024 of right upper lobe pulmonary nodule, spoke to pathologist Dr. Yao preliminary pathology report is positive for malignant cells,unable to determine primary malignancy, final report to follow after special stains, likely metastatic disease as patient has osteolytic lesion in thoracic spine and numerous pulmonary nodules. Per pathology, squamous cell carcinoma remains #1 on the differential list likely secondary to GI source Plan: Pending final pathology report, spoke to Dr. Santos, heme-onc, who said they would see the patient at cancer treatment center on outpatient once acute infection is resolved Immunohistochemistry result showed glandular differentiation CK7+ and CK20 focally positive. Differential high for adenosquamous carcinoma Case sent to [facility] for external consultation #CHF exacerbation, less likely Loaders Dr. Grider is consulted following the patient recommended IV diuresis and antibiotics. Adequate diuresis achieved, bilateral lower extremity swelling improved, patient developed contraction alkalosis, noted increasing BUN, clinically dehydrated, will hold off on diuresis for now, continued worsening of chest x-ray and increasing oxygen requirements likely secondary to ARDS, less likely acute pulmonary edema secondary to CHF. Last echo in 2024, completed outpatient, showed normal left ventricular function with EF of 70-75% Plan: Continue to monitor #GERD-like symptoms #Dysphagia #Esophageal strictures s/p dilation on 10/17 Patient complains of burning sensation whenever he eats causing poor appetite. He feels like someone is stuck in his throat EGD done findings are consistent with esophageal stricture, esophagitis, gastritis Plan: Pantoprazole 40 mg PO qday Famotidine 20 mg PO qday prn if symptoms persist Speech evaluation completed GI consulted, appreciate recommendations #BPH Chronic medical condition Plan: Continue home finasteride 5 Mg daily and tamsulosin 0.4 Mg p.o. daily #Concern for PE- ruled out Negative CTA, of note patient was inadequately anticoagulated on Eliquis 2.5, does not meet criteria for low-dose Eliquis, started on full dose anticoagulation Eliquis 5 mg twice daily. 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 Halina Olivarez, PGY-1 Attending Provider Attestation/Addendum I have discussed and was present for the essential components of the history, physical examination, diagnosis, and treatment plan with the resident. I agree with the patient's care as documented by the resident and amended herein by me. Bartolo Meade, . Patient seen and evaluated this AM. Vital signs stable, patient afebrile overnight. Patient remains on high flow NC, 30/50, SpO2 94%. Significant labs included WBC of 12, other labs largely unremarkable today. The preliminary pathology report did come back today showing Invasive squamous cell carcinoma, moderately differentiated, immunohistochemistry also demonstrated some glandular differentiation, CK7+ and CK20 focally positive potentially within adenosquamous carcinoma. Per the report, the case has been sent to [facility] for external consultation. PD-L1 was pending. Patient will remain on hydrocortisone 50 mg IV every 6 hours per pulmonology recommendations, can likely taper in 3 to 4 days. [facility] has accepted the patient under Dr. Parsons, hospitalist however there is no bed availability at this time however the patient is at the top of the list per transfer nurse. Patient will be transferred as soon as possible when bed becomes available. Although this document has been carefully reviewed, there may still be some phonetic and other typographical errors. These errors are purely grammatical due to imperfections in the software program and should not be construed in any way to compromise the substance of the patient's medical care during this visit.
--- NOTE | 2024-10-24 13:12 | PD.IMPROG ---
Documentation for date of: 10/24/24 Subjective Subjective Interval history: Patient evaluated. Improved dysphagia after endoscopic dilatation Exam Vital Signs Temp Pulse Resp BP Pulse Ox O2 Del Method O2 Flow Rate 96.8 F 80 18 139/67 H 98 High Flow Nasal Cannula 35 10/24/24 08:00 10/24/24 13:01 10/24/24 13:01 10/24/24 08:00 10/24/24 13:01 10/24/24 08:00 10/24/24 13:01 FiO2 50 10/24/24 13:01 Objective Labs 10/24/24 05:11 10/24/24 05:11 Labs: Laboratory Results - last 24 hr 10/24/24 05:11 WBC 11.9 H RBC 4.43 L Hgb 13.8 Hct 41.2 MCV 93 MCH 31.2 MCHC 33.5 RDW Std Deviation 49.1 H Plt Count 165 Neut % (Auto) 90 H Lymph % (Auto) 4 L [place] % (Auto) 5 Eos % (Auto) 0 Baso % (Auto) 0 Neut # (Auto) 10.7 H Lymph # (Auto) 0.5 L Bowman # (Auto) 0.6 Eos # (Auto) 0.0 Baso # (Auto) 0.0 Immature Gran # (Auto) 0.12 H Absolute Nucleated RBC 0.00 Immature Gran % 1 H Nucleated RBC % 0 Sodium 137 Potassium 4.8 Chloride 101 Carbon Dioxide 30.2 Anion Gap 6 L BUN 34 H Creatinine 0.8 Estim Creat Clear Calc 81.1 eGFR > 60 BUN/Creatinine Ratio 43 H Glucose 194 H Calculated Osmolality 286 Calcium 7.9 L Corrected Calcium 8.5 Total Bilirubin 0.6 AST 37 H ALT 85 H Alkaline Phosphatase 230 H Total Protein 5.8 Albumin 3.2 L Globulin 2.6 Albumin/Globulin Ratio 1.2 Impressions Impression: # Dysphagia # Status post endoscopic dilatation with improvement in dysphagia continue current management ABG Interpretation ABG results: 10/19/24 10/22/24 08:50 04:43 ABG pH 7.40 7.45 ABG pCO2 55 H 48 ABG pO2 72 L 73 L ABG HCO3 34 H 33 H ABG O2 Saturation 95 96 ABG Base Excess 8 H 8 H Assessment & Plan A&P Narrative # Dysphagia # Abnormal weight loss Plan tentatively scheduled for fiberoptic esophagogastroduodenoscopy with possible biopsy possible Therapeutic intervention under intravenous moderate sedation of course it all depends upon his respiratory status in the FiO2 of the oxygen Other medical problems include # Atrial fibrillation on Eliquis # Essential hypertension # Diabetes mellitus type 2 # BPH Thank you very much for the opportunity to participate in the care of this patient Time Spent With Patient Time: Total time spent is greater than 50% in coordination of care (as documented) at patient's floor/unit and/or counseling patient:
--- NOTE | 2024-10-24 14:25 | PC.SS ---
Rounding Note: Patient pending transfer to [facility], awaiting bed availability.
[2024-10-24] MEDS: MELATONIN 3 MG TABLET PO (21:55)
[2024-10-24] MEDS: INSULIN GLARGINE (Lantus) 5 UNIT/0.05 ML (PER 5 UNITS) 3 UNIT SC (22:15)
[2024-10-25] VITALS (11 sets, daily range): BP systolic 117–146; BP diastolic 57–87; PULSE 67–852; RESP 4–37; TEMP 36.1–36.9; O2SAT 92–98; BMI 34.2
[2024-10-25] MEDS: HYDROCORTISONE SOD SUCC INJ 100 MG VIAL 50 MG IV ×3 (00:46→11:48)
[2024-10-25] MEDS: ALBUTEROL/IPRATROPIUM (Duoneb) RT SOL 3 ML NEBU INH ×3 (00:50→13:01)
[2024-10-25] MEDS: BENZONATATE 100 MG CAPSULE PO ×2 (05:03→14:14)
[2024-10-25 06:19] LABS: Basophils % (Auto) 0 % (0-2.5); Eosinophils % (Auto) 0 % (0-10); Hematocrit 39.9 % (41.0-53.0); Hemoglobin 13.3 g/dL (13.5-16.0); Immature Granulocytes % (Auto) 1 % (0-0); Immature Granulocytes Auto 0.11 Thou/mm3 (0.00-0.00); Lymphocytes # (Auto) 0.4 Thou/mm3 (1.0-4.8); Lymphocytes % (Auto) 3 % (10-50); Mean Corpuscular HGB Conc 33.3 g/dl (31.0-37.0); Mean Corpuscular Hemoglobin 31.2 pg (25.0-35.0); Mean Corpuscular Volume 94 fL (80-100); Monocytes # (Auto) 0.6 Thou/mm3 (0.0-0.8); Monocytes % (Auto) 5 % (0-12); Neutrophils % (Auto) 91 % (37-80); Nucleated Red Blood Cell % 0 /100 WBC (0); Platelet Count 160 Thou/mm3 (140-440); RDW Standard Deviation 50.2 fL (35.1-43.9); Red Blood Count 4.26 Miln/mm3 (4.50-5.90); White Blood Count 12.1 Thou/mm3 (3.8-10.6)
[2024-10-25 06:41] LABS: Alanine Aminotransferase 66 U/L (10-49); Albumin/Globulin Ratio 1.3 (1.2-2.2); Anion Gap 7 (7-16); Aspartate Amino Transferase 25 U/L (0-34); BUN/Creatinine Ratio 46 Ratio (12-20); Bilirubin,Total 0.6 mg/dL (0.3-1.2); Blood Urea Nitrogen 32 mg/dL (9-23); Calcium 7.9 mg/dL (8.3-10.6); Calcium (Corrected) 8.7 mg/dL (8.5-10.1); Carbon Dioxide 30.5 mMol/L (20.0-31.0); Chloride 101 mMol/L (98-107); Creatinine (Component) 0.7 mg/dL (0.6-1.3); Estimated Creatinine Clearance 95.2 mL/min (>60); Globulin 2.3 gm/dL (2.3-3.5); Glucose 173 mg/dL (74-106); Osmolality,Calculated 286 (275-295); Potassium 4.5 mMol/L (3.4-5.1); Sodium 138 mMol/L (136-145); Total Protein 5.3 gm/dL (5.7-8.2); eGFR > 60 See Note
[2024-10-25 06:44] LABS: Alkaline Phosphatase 205 U/L (46-116)
[2024-10-25] MEDS: INSULIN LISPRO (AdmeLOG) 1 UNIT/0.01 ML UNIT SC ×3 (07:55→17:49)
[2024-10-25] MEDS: POLYETHYLENE GLYCOL 17 GM PACKET PO (08:13)
[2024-10-25] MEDS: PANTOPRAZOLE INJ 40 MG VIAL IV (08:13)
[2024-10-25] MEDS: ASPIRIN EC 81 MG TABEC PO (08:13)
[2024-10-25] MEDS: SENNA TABLET 1 TAB PO (08:13)
[2024-10-25] MEDS: BALSAM PERU/CASTOR OIL (Venelex) 60 GM TUBE TOP (08:13)
[2024-10-25] MEDS: FINASTERIDE 5 MG TABLET PO (08:13)
[2024-10-25] MEDS: APIXABAN 2.5 MG TABLET 5 MG PO (08:13)
--- NOTE | 2024-10-25 08:41 | PC.CM ---
Addendum entered by Barbara Santamaria RN 10/25/24 17:10: I called the cash management clerk to have add discharge summary to the transfer pacekt. Addendum entered by Barbara Santamaria RN 10/25/24 16:53: I handed of to bed side nurse and to the cash management clerk on telemetry. Addendum entered by Barbara Santamaria RN 10/25/24 16:35: I contacted Dr. Olivarez to complete a discharge summary. Addendum entered by Barbara Santamaria RN 10/25/24 16:34: I received a call back from [facility] and they verified patient's age and weight. They spoke to the dealer sales manager and they are able to manage patient for transport with high flow at 40 L with FI02 of 45%. I faxed over paperwork and set up transport for [id number]. They will come sooner if they have an available unit. I updated nurse, and Dr. Meade. I will take completed paperwork along with CD to telemetry floor. I updated Susan with resp. and I let her know [facility] can manage patient without resp ride along. Addendum entered by Barbara Santamaria RN 10/25/24 15:54: I spoke to Pamela resp therapist on the floor to make sure patient was still on high flow 40 L with FI02 of 45%. Addendum entered by Barbara Santamaria RN 10/25/24 15:43: I called patient's daughter and gave her the information. I am setting up transport. I called the ambulance to see if they are able to manage patient with High flow 02 at 40 L with FIO2 of 45%. They were going check with the dealer sales manager and get back to me. Addendum entered by Barbara Santamaria RN 10/25/24 15:27: Patient has been accepted to [facility] and will be going to room [address] Patient [address] by Dr. Jefry Mcnally. Number to call and give report is [phone]. I will update the patient and nurse. I will set up transport with [facility]. Addendum entered by Barbara Santamaria RN 10/25/24 11:33: I received a call from Mary patient's daughter. She wanted to make sure we were still looking at [facility] along with [facility] for a transfer. She stated Dr. Orozco mentioned both facilities. I called [facility] and they stated Dr. Orozco only wanted patient to go to [facility] and not [facility]. I attempted to call Mary back to give her the update, and it was the wrong number listed on the facesheet. I went to patient's room and I spoke to Mary and Mr. Scott directly. We verified we had a wrong number on the facesheet. I asked telemetry cash management clerk to correct the phone on the facesheet with registration. I let patient and daughter know that we are looking to transfer to [facility] and not [facility]. Zuly with the transfer center let me know they do not have any open beds at [facility] either. Family updated. Addendum entered by Barbara Santamaria RN 10/25/24 10:19: I received a call from the community development officer stating patient's daughter wanted an update on transfer. I asked cash management clerk to provide mary with my number. I received a call from patient's daughter Mary Hussein. She had me on speaker phone and she was in the room with her father. She wanted an update on transfer. I let her know I spoke to Zuly this morning from [facility] and they do not have any beds available at this time. I let her know she can call me at any time for updates. Original Note: I spoke to Zuly with the transfer center at [facility]. She states they do not have any open beds at this time. I provided updated VS. Packet is ready for transfer along with CD. Transfer back agreement sent back to [facility]. Dr. Orozco is the chief resident who accepted patient, but he will not be the one accepting the patient once they have a bed available. I updated Dr. Meade and Faviola, bedside nurse, at ext. [phone].
--- NOTE | 2024-10-25 10:49 | PC.SS ---
Update: Patient is pending transfer to [facility]. Awaiting bed availability.
[2024-10-25] MEDS: INSULIN LISPRO (AdmeLOG) 1 UNIT/0.01 ML UNIT 3 UNIT SC ×2 (11:52→17:51)
[2024-10-25] MEDS: SODIUM CHLORIDE 0.9% 500 ML 500 ML 80 ML IV (11:56)
--- NOTE | 2024-10-25 13:31 | ESPR_ITS ---
Documentation for date of: 10/25/24 Subjective Subjective Interval history: 10/25/2024: Overnight no acute events to report. Patient seen and examined this morning, experiencing some hemoptysis and michael hematuria noted in Escobar bag. As a result, patient's Eliquis and aspirin have been held and the patient will receive continuous bladder irrigation. Patient continues to be on high flow nasal cannula 40 L at 45% and has been approved for transfer to [facility] pending transport. Patient's hydrocortisone has been stopped and he will start on prednisone taper to complete the steroid therapy for the severe community- acquired pneumonia. Exam Vital Signs Temp Pulse Resp BP Pulse Ox O2 Del Method O2 Flow Rate 97.0 F 852 H 4 L 131/84 H 94 L High Flow Nasal Cannula 40 10/25/24 08:00 10/25/24 13:01 10/25/24 13:01 10/25/24 08:00 10/25/24 13:01 10/25/24 08:00 10/25/24 13:01 FiO2 45 10/25/24 13:01 Narrative Exam GENERAL: A&Ox3 . Awake, Not in acute distress NEURO: no focal neurological deficits HEENT: Atraumatic, Normocephalic. mucous membranes moist. Eyes open, symmetrical, & clear. Hemoptysis HEART: Normal Heart Sounds LUNGS: Clear breath sounds bilaterally, sporadic crackles heard, on high flow nasal cannula 40 L at 45% FiO2 ABDOMEN: soft, non-distended, non-tender, bowel sounds heard, no guarding or rebound tenderness : Michael hematuria noted in Escobar bag SKIN: No Rash or ecchymoses, decubitus ulcer on buttocks EXTREMITIES:no pitting edema bilaterally resolved, no tenderness Objective Labs 10/25/24 04:55 10/25/24 04:55 Labs: Laboratory Results - last 24 hr 10/16/24 10/16/24 10/25/24 06:15 06:15 04:55 WBC 12.1 H RBC 4.26 L Hgb 13.3 L Hct 39.9 L MCV 94 MCH 31.2 MCHC 33.3 RDW Std Deviation 50.2 H Plt Count 160 Neut % (Auto) 91 H Lymph % (Auto) 3 L Wilkin % (Auto) 5 Eos % (Auto) 0 Baso % (Auto) 0 Neut # (Auto) 11.0 H Lymph # (Auto) 0.4 L Wilkin # (Auto) 0.6 Eos # (Auto) 0.0 Baso # (Auto) 0.0 Immature Gran # (Auto) 0.11 H Absolute Nucleated RBC 0.00 Immature Gran % 1 H Nucleated RBC % 0 Sodium 138 Potassium 4.5 Chloride 101 Carbon Dioxide 30.5 Anion Gap 7 BUN 32 H Creatinine 0.7 Estim Creat Clear Calc 95.2 eGFR > 60 BUN/Creatinine Ratio 46 H Glucose 173 H Calculated Osmolality 286 Calcium 7.9 L Corrected Calcium 8.7 Total Bilirubin 0.6 AST 25 ALT 66 H Alkaline Phosphatase 205 H D Total Protein 5.3 L Albumin 3.0 L Globulin 2.3 Albumin/Globulin Ratio 1.3 Misc Test Result See Sep Rpt See Sep Rpt ABG Interpretation ABG results: 10/19/24 10/22/24 08:50 04:43 ABG pH 7.40 7.45 ABG pCO2 55 H 48 ABG pO2 72 L 73 L ABG HCO3 34 H 33 H ABG O2 Saturation 95 96 ABG Base Excess 8 H 8 H Quality Measures Quality Measures VTE prophylaxis Advance care planning discussed with:: patient, spouse and child Assessment & Plan Assessment Current Active Medications: Generic Name Dose Route Start Last Admin Trade Name Freq PRN Reason Stop Dose Admin Acetaminophen 650 mg 10/13/24 21:44 10/24/24 09:16 Acetaminophen 325 Mg Tablet PO 11/12/24 21:43 650 mg Q6H PRN Administration Fever >100.4 or Pain 1-10 Albuterol/Ipratropium 3 ml 10/16/24 19:00 10/25/24 13:01 Albuterol/Ipratropium (Duoneb) Rt Daina 3 Ml Nebu INH 11/15/24 18:59 3 ml Q6HRRT MARCY Administration Apixaban 5 mg 10/15/24 21:00 10/25/24 08:13 Apixaban 2.5 Mg Tablet PO 11/14/24 20:59 5 mg BID MARCY Administration Aspirin 81 mg 10/14/24 09:00 10/25/24 08:13 Aspirin Ec 81 Mg Tabec PO 11/13/24 08:59 81 mg DAILY MARCY Administration Balsam [place] Oil 0 gm 10/16/24 21:00 10/25/24 08:13 Balsam [place] Oil (Venelex) 60 Gm Tube TOP 11/15/24 20:59 1 applicatio BID MARCY Administration Benzonatate 100 mg 10/16/24 22:00 10/25/24 05:03 Benzonatate 100 Mg Capsule PO 11/15/24 21:59 100 mg TID MARCY Administration Protocol Bisacodyl 10 mg 10/13/24 21:44 10/17/24 00:52 Bisacodyl 5 Mg Tabec PO 11/12/24 21:43 10 mg QDAY PRN Administration CONSTIPATION Protocol Dextrose 25 ml 10/22/24 08:06 Dextrose 50%-Water Inj 50 Ml Syringe IV 11/21/24 08:05 Q15MIN PRN BG 50-70 responsive npo pt Dextrose 50 ml 10/22/24 08:06 Dextrose 50%-Water Inj 50 Ml Syringe IV 11/21/24 08:05 Q15MIN PRN BG <50 OR BG <70 & pt unresponsive Famotidine 20 mg 10/13/24 23:23 Famotidine 20 Mg Tablet PO 11/12/24 23:22 DAILY PRN GERD Finasteride 5 mg 10/15/24 09:00 10/25/24 08:13 Finasteride 5 Mg Tablet PO 11/14/24 08:59 5 mg QDAY MARCY Administration Furosemide 40 mg 10/18/24 21:00 10/20/24 08:53 Furosemide Inj 10 Mg/Ml 4ml Vial IVP 11/17/24 20:59 40 mg BID MARCY Administration Glucagon 1 mg 10/22/24 08:06 Glucagon Inj 1 Mg Vial IM Q15MIN PRN BG <70, and no IV access Guaifenesin/Dextromethorphan 1 each 10/15/24 09:51 10/21/24 21:02 Guaifenesin/Dm Tablet PO 11/14/24 09:50 1 each BID PRN Administration COUGH Hydrocortisone Sodium Succinate 50 mg 10/23/24 09:00 10/25/24 11:48 Hydrocortisone Sod Succ Inj 100 Mg Vial IV 10/26/24 08:59 50 mg Q6HR MARCY Administration Protocol Sodium Chloride 500 mls @ 80 mls/hr 10/25/24 11:49 10/25/24 11:56 Ns IV 11/24/24 11:48 80 mls/hr .Q6H15M MARCY Administration Insulin Glargine 8 unit 10/25/24 21:00 Insulin Glargine (Lantus) 5 Unit/0.05 Ml (Per 5 Units) SC 11/24/24 20:59 HS MARCY Insulin Human Lispro 0 unit 10/24/24 11:30 10/25/24 11:49 Insulin Lispro (Admelog) 1 Unit/0.01 Ml Unit SC 11/21/24 11:29 2 unit ACHS MARCY Administration Protocol Insulin Human Lispro 3 unit 10/25/24 11:30 10/25/24 11:52 Insulin Lispro (Admelog) 1 Unit/0.01 Ml Unit SC 11/24/24 11:29 3 unit AC MARCY Administration Lidocaine 1 patch 10/15/24 14:45 10/22/24 00:08 Lidocaine 5% 1 Patch TOP 11/14/24 14:44 1 patch DAILY PRN Administration RIGHT SHOULDER PAIN Melatonin 3 mg 10/16/24 21:00 10/24/24 21:55 Melatonin 3 Mg Tablet PO 11/15/24 20:59 3 mg HS MARCY Administration Ondansetron HCl 4 mg 10/13/24 21:44 Ondansetron Inj 2 Mg/Ml Inj 2 Ml IV 11/12/24 21:43 Q6H PRN NAUSEA OR VOMITING Protocol Pantoprazole Sodium 40 mg 10/17/24 21:00 10/25/24 08:13 Pantoprazole Inj 40 Mg Vial IV 11/16/24 20:59 40 mg BID MARCY Administration Polyethylene Glycol 17 gm 10/15/24 12:15 10/25/24 08:13 Polyethylene Glycol 17 Gm Packet PO 11/14/24 12:14 17 gm QDAY MARCY Administration Sennosides 1 tab 10/15/24 12:15 10/25/24 08:13 Senna Tablet PO 11/14/24 12:14 1 tab QDAY MARCY Administration Protocol Plan Mr. Scott is a 84-year-old male with past medical history of afib on Eliquis, hypertension, prediabetes, and BPH who presented to the ED on 10/13/2024 with 6 weeks of cough, SOB , worsening generalized body weakness and bilateral leg swelling for the last 3 days. Patient is admitted to the hospital for acute hypoxic respiratory failure secondary to pneumonia and CHF exacerbation. #ARDS #Pneumonia secondary to gram-negative bacilli #Diffuse pulmonary metastatic disease #Acute hypoxic respiratory failure Bilateral pneumonia?cocci negative, sputum culture positive for gram-negative rods, antibiotics ceftriaxone and azithromycin discontinued, started on cefepime 10/16/2024, Sputum culture produced Serratia marcescens and E. coli, sensitive to cefepime, negative blood cultures to date. Also possible metastatic disease, unknown primary. ARDS?diffuse bilateral infiltrates, less likely CHF, PF ratio< 300 increased work of breathing, respiratory rate in the 30s, increasing oxygen requirements, currently on high flow nasal cannula oxygen 30 L/min. Patient's oxygenation status remains stable Patient has hemoptysis likely 2/2 to HFNC-use vs. lung mets Plan: Discontinued hydrocortisone; will start predisone 40mg po taper over 1 week Will consider repeat chest x-ray and ABG in the a.m if patient's oxygenation status changes Transfer process initiated; [facility] accepts pateint; pending bed availabilty #Michael hematuria Likely 2/2 to steroid use vs. malignancy vs. 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 Metastatic disease?CT-guided lung biopsy was done on 10/18/2024 of right upper lobe pulmonary nodule, spoke to pathologist Dr. Yao preliminary pathology report is positive for malignant cells,unable to determine primary malignancy, final report to follow after special stains, likely metastatic disease as patient has osteolytic lesion in thoracic spine and numerous pulmonary nodules. Per pathology, squamous cell carcinoma remains #1 on the differential list likely secondary to GI source Plan: Pending final pathology report, spoke to Dr. Santos, heme-onc, who said they would see the patient at [facility] on outpatient once acute infection is resolved Immunohistochemistry result showed glandular differentiation CK7+ and CK20 focally positive. Differential high for adenosquamous carcinoma Case sent to [facility] for external consultation #CHF exacerbation, less likely Home Health Aide Caregiver Dr. Grider is consulted following the patient recommended IV diuresis and antibiotics. Adequate diuresis achieved, bilateral lower extremity swelling improved, patient developed contraction alkalosis, noted increasing BUN, clinically dehydrated, will hold off on diuresis for now, continued worsening of chest x-ray and increasing oxygen requirements likely secondary to ARDS, less likely acute pulmonary edema secondary to CHF. Last echo in 2024, completed outpatient, showed normal left ventricular function with EF of 70-75% Plan: Continue to monitor #Prediabetes #Hyperglycemia Likely 2/2 to steroid use as above A1c of 6 Plan: Increased glargine to 8u Lispro 3u AC SSI #GERD-like symptoms #Dysphagia #Esophageal strictures s/p dilation on 10/17 Patient complains of burning sensation whenever he eats causing poor appetite. He feels like someone is stuck in his throat EGD done findings are consistent with esophageal stricture, esophagitis, gastritis Plan: Pantoprazole 40 mg PO qday Famotidine 20 mg PO qday prn if symptoms persist Speech evaluation completed GI consulted, appreciate recommendations #BPH Chronic medical condition Plan: Continue home finasteride 5 Mg daily and tamsulosin 0.4 Mg p.o. daily #Concern for PE- ruled out Negative CTA, of note patient was inadequately anticoagulated on Eliquis 2.5, does not meet criteria for low-dose Eliquis, started on full dose anticoagulation Eliquis 5 mg twice daily. 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 Halina Olivarez, PGY-1 Attending Provider Attestation/Addendum I have discussed and was present for the essential components of the history, physical examination, diagnosis, and treatment plan with the resident. I agree with the patient's care as documented by the resident and amended herein by me. Bartolo Meade DO. Although this document has been carefully reviewed, there may still be some phonetic and other typographical errors. These errors are purely grammatical due to imperfections in the software program and should not be construed in any way to compromise the substance of the patient's medical care during this visit.
--- NOTE | 2024-10-25 16:35 | ESDS_ITS ---
Planned Discharge Date 10/25/24 DS: Providers Provider Date of admission: 10/13/24 21:28 Primary care physician: Aj Raygoza MD Admitting Provider: Chris Meade DO Attending Provider on Admission: Chris Meade DO Consults: 10/13/24 21:50 Consult to Cardiology Routine Comment: Patient of Dr. Grider Consulting Provider: William Grider Instructions: Fluid overload, worsened bilateral lower extremity edema 10/13/24 21:51 Referral Physical Therapy Routine Comment: Physician Instructions: 10/14/24 03:28 Referral Wound Care Routine Comment: 10/15/24 12:10 Referral Speech Therapy Stat Comment: 10/15/24 14:35 Consult to Gastroenterology Stat Comment: Consulting Provider: Valeria Mead 10/21/24 12:20 Referral - Professor Of Biochemistry Stat Service Needed for Transfer: Pulmonology Addl Comments:: ARDS, [facility] [place] 10/23/24 09:43 Consult to Pulmonology Stat Comment: consult for ARDS in setting [place] Consulting Provider: Suleiman Richardson I Attending Provider on DC: Issa Olivarez MD Discharging Provider: Issa Olivarez MD DS: Diagnosis Problem List Completed Was Problem List Reviewed/Reconciled?: Yes Hospital Course Hospital Course Hospital course: 84-year-old male with past medical history of A-fib on Eliquis, hypertension, prediabetes, BPH presented to the ED on 10/13 with 6 weeks of cough and worsening generalized body weakness and bilateral leg swelling. In the ED patient was hemodynamically stable however EKG showed atrial fibrillation, chest x-ray showed diffuse significant bilateral pneumonia along with mild associated heart failure, venous duplex bilateral lower extremities were negative; patient was admitted for community-acquired pneumonia. Cardiology was consulted and the recommendation was to continue management with IV antibiotic therapy, anticoagulant therapy and IV diuretic therapy. During hospitalization patient reported dysphagia at which point received endoscopy which showed LA grade B reflux esophagitis with no bleeding and biopsies were taken. Based on further imaging and abnormal electrolytes there was suspicion about possible malignancy has resolved lung biopsy CT was completed along with pleural drainage and the pulm pathology there was confirmation of malignant cells. Pathologist confirmed adenosquamous carcinoma GI origin; moreover, samples have been sent out to [facility] lab for further testing. Patient did develop ARDS during hospitalization and they continue to be on high flow nasal cannula. Patient will be discharged to a higher acuity level hospital for pulmonology coverage and will need oncology services for confirmed lung metastasis. Issa Olivarez, PGY-1 Status at Discharge Overall status at discharge: other Time Spent with Patient Time attestation: Total time spent providing and/or coordinating discharge services: 45 minutes Time spent: Greater than 30 minutes Exam Vital Signs Temp Pulse Resp BP Pulse Ox O2 Del Method O2 Flow Rate 97.3 F 71 27 H 140/81 H 93 L High Flow Nasal Cannula 40 10/25/24 12:00 10/25/24 15:43 10/25/24 15:43 10/25/24 12:00 10/25/24 15:43 10/25/24 12:00 10/25/24 15:43 FiO2 45 10/25/24 15:43 Narrative Exam GENERAL: A&Ox3 . Awake, Not in acute distress NEURO: no focal neurological deficits HEENT: Atraumatic, Normocephalic. mucous membranes moist. Eyes open, symmetrical, & clear. Hemoptysis HEART: Normal Heart Sounds LUNGS: Clear breath sounds bilaterally, sporadic crackles heard, on high flow nasal cannula 40 L at 45% FiO2 ABDOMEN: soft, non-distended, non-tender, bowel sounds heard, no guarding or rebound tenderness : Michael hematuria noted in Boogie bag SKIN: No Rash or ecchymoses, decubitus ulcer on buttocks EXTREMITIES:no pitting edema bilaterally resolved, no tenderness Discharge Plan Plan Patient Disposition: [facility] Pt Being Transferred to: [facility] Service Needed for Transfer: Pulmonology Care Plan Goals: Please follow-up with Heme-Onc for metastatic lung disease Recommend to follow-up with primary doctor within 5 days of discharge from the hospital. Recommend to increase Eliquis dose to 5 mg twice daily for adequate anticoagu lation as kidney function is back to baseline, do not meet criteria for low-dose Eliquis. Recommend to continue antibiotic levofloxacin for 5 more days for treatment of pneumonia. In case of worsening symptoms, please return to emergency room. Prescriptions/Referrals Prescriptions/Med Rec: New benzonatate 100 mg Capsule 100 mg PO TID 5 Days Qty: 15 0RF levofloxacin 750 mg tablet 750 mg PO QDAY Qty: 5 0RF Eliquis 5 mg tablet 5 mg PO BID Qty: 60 0RF Continued tamsulosin [Flomax] 0.4 MG capsule,extended release 24hr 0.4 mg PO QDAY Qty: 0 finasteride [Proscar] 5 MG tablet 5 mg PO QDAY Qty: 0 metformin 500 mg tablet 500 mg PO DAILY Patient Comments: TAKE 1 TABLET BY MOUTH EVERY DAY furosemide 40 mg tablet 40 mg PO BID Patient Comments: TAKE 1 TABLET BY MOUTH TWICE A DAY metoprolol succinate 100 mg tablet extended release 24 hr 100 mg PO DAILY Patient Comments: TAKE 1 TABLET BY MOUTH EVERY DAY amlodipine 5 mg tablet 5 mg PO DAILY Patient Comments: TAKE 1 TABLET BY MOUTH TWICE A DAY potassium chloride 20 mEq tablet,ER particles/crystals 20 meq PO BID Patient Comments: TAKE 1 TABLET BY MOUTH TWICE A DAY losartan 100 mg tablet 100 mg PO DAILY Patient Comments: TAKE 1 TABLET BY MOUTH EVERY DAY Discontinued Eliquis 2.5 mg Tablet 2.5 mg PO BID Referrals: Aj Raygoza MD [Primary Care Provider] - Patient/Caregiver Discharge Instructions Education Materials: Paracentesis Dc Print Language: Greek Stand Alone Forms: [place] Award Info., Patient Portal Info Letter Discharge Order Discharge Orders: Discharge (Routine); Ordered 10/25/24 Ordered By: Issa Olivarez Quality Discharge Quality Measures VTE prophylaxis Attestestation MD Attestation I have discussed and was present for the essential components of the discharge history, physical examination, diagnosis, and discharge treatment plan with the resident. I agree with the patient's discharge care as documented by the resident and amended herein by me. Bartolo Meade DO. The patient understood all discharge instructions, all questions were answered satisfactorily. The patient was instructed to return to the Emergency Department is symptoms worsened or persisted. The patient was stable, afebrile and tolerating p.o. intake at time of transfer. At time of discharge today, the patient remains on high flow 40/45, respiratory rate 28 this morning, SpO2 94%. Significant labs today time of discharge WBC 12, hemoglobin 13. BMP significant for sodium of 138, potassium 4.5, chloride 101, bicarb 30.5 BUN 32, creatinine 0.7. Patient did develop hematuria as demonstrated in the patient's Boogie catheter this morning with some clots. Unclear etiology at this time however we have held Eliquis and aspirin. Patient does not endorse pulling or any trauma to the Boogie tube, possible remote chance being secondary to steroids which we will stop for today, recommend continued taper tomorrow from hydrocortisone 50 mg IV every 6 hours. Antibiotic course completed on 10/22. At tertiary center, patient will likely need pulmonology and heme-onc consultation. Possible urology consultation if urine does not clear on CBI. Patient will be transferred to [facility] for higher level of care and specialty consultations which are not available here at [facility]. Although this document has been carefully reviewed, there may still be some phonetic and other typographical errors. These errors are purely grammatical due to imperfections in the software program and should not be construed in any way to compromise the substance of the patient's medical care during this visit.
--- NOTE | 2024-10-25 17:24 | PC.NURSE ---
Report called to CAMILA Emery at [facility] at this time.
== END 2024-10-25 18:40 | disposition short-term general hospital (02) | DRG 177 ==
LOC: SERX 16:31 → S2NX 10-15 07:36 → S2SX 10-21 10:28 → S2NX 10-23 12:40 → SERHOLD 10-23 12:40 → S2NX 10-23 12:40 → S2SX 10-23 12:40
PROVIDERS: Internal Medicine; Nurse Practitioner Family; Specialist; Student in an Organized Health Care Education/Training Program; Admitting Provider Student in an Organized Health Care Education/Training Program; Emergency Provider Emergency Medicine; PCP Internal Medicine; Visit Provider Student in an Organized Health Care Education/Training Program
PROC: 0DB38ZX Excision of Lower Esophagus, Via Natural or Artificial Opening Endoscopic, Diagnostic (ICD-10-PCS; CPT 43239; principal; 2024-10-16 17:30)
DX: J15.69 Pneumonia due to other Gram-negative bacteria (principal); I50.33 Acute on chronic diastolic (congestive) heart failure; J80 Acute respiratory distress syndrome; I48.20 Chronic atrial fibrillation, unspecified; C79.51 Secondary malignant neoplasm of bone; C78.00 Secondary malignant neoplasm of unspecified lung; N17.9 Acute kidney failure, unspecified; E87.3 Alkalosis; J91.8 Pleural effusion in other conditions classified elsewhere; I11.0 Hypertensive heart disease with heart failure; N40.0 Benign prostatic hyperplasia without lower urinary tract symptoms; E83.52 Hypercalcemia; K21.00 Gastro-esophageal reflux disease with esophagitis, without bleeding; R63.4 Abnormal weight loss; Z79.01 Long term (current) use of anticoagulants; C80.1 Malignant (primary) neoplasm, unspecified; T18.128A Food in esophagus causing other injury, initial encounter; R31.0 Gross hematuria; Z79.84 Long term (current) use of oral hypoglycemic drugs; E11.65 Type 2 diabetes mellitus with hyperglycemia; K59.00 Constipation, unspecified; Z79.82 Long term (current) use of aspirin; K22.2 Esophageal obstruction; K29.70 Gastritis, unspecified, without bleeding; N28.1 Cyst of kidney, acquired; Z11.52 Encounter for screening for COVID-19; Z90.49 Acquired absence of other specified parts of digestive tract; Z79.899 Other long term (current) drug therapy; Z86.73 Personal history of transient ischemic attack (TIA), and cerebral infarction without residual deficits; W44.F3XA Food entering into or through a natural orifice, initial encounter
CPT/HCPCS: 36415; 36600; 70450; 71045; 71275; 73020; 74177; 76999; 77012; 80053; 81001; 82150; 82306; 82330; 82378; 82570; 82652; 82803; 82945; 83605; 83615; 83735; 83880; 83970; 83986; 84100; 84145; 84153; 84155; 84156; 84157; 84165; 84166; 84484; 85025; 85379; 85610; 85730; 86038; 86140; 86225; 86235; 86331; 86334; 86335; 86635; 87040; 87070; 87075; 87077; 87081; 87186; 87205; 87400; 87449; 87634; 87811; 89051; 89220; 92526; 92610; 93005; 93225; 93970; 93971; 94640; 94664; 94667; 96365; 96366; 96368; 96375; 97162; 99285; A4649; A9270; C1769; J0456; J0630; J0692; J0696; J1100; J1200; J1720; J1815; J1940; J2250; J2430; J2470; J3010; J3475; J7030; J7040; J7050; J7999; Q9967